=== PATIENT | male | born 1945 | race Caucasian/White ===

== ENCOUNTER 2022-07-05 13:58 | Inpatient (IN) | payer OTHER ==
[2022-07-05 15:22] LABS: BASO % 0.3 % (0-2.0); EOS % 1.2 % (0-4.5); HEMATOCRIT 26.1 % (35.4-49); HEMOGLOBIN 9.1 GM/dL (11.7-16.9); LYMPH % 6.5 % (8-40); MCH 27.9 pg (25.7-33.7); MCHC 34.9 g/dl (32.0-35.9); MEAN CELL VOLUME 79.9 fl (80-96); MEAN PLT VOLUME 6.4 fl (7.5-11.1); MONO % 10.4 % (3.8-10.2); NEUT % 81.6 % (42.8-82.8); PLATELET COUNT 360 10^3/uL (134-434); RBC 3.27 M/mm3 (4.00-5.60); RDW 15.9 % (11.9-15.9); WHITE BLOOD COUNT 10.1 K/mm3 (4.0-10.0)
[2022-07-05 15:27] LABS: INR 1.1 (0.83-1.09); PROTHROMBIN TIME (PATIENT) 12.7 SEC (9.7-13.0)
[2022-07-05 15:31] LABS: ACTIVATED PTT 26.6 SECONDS (25.2-36.5)
[2022-07-05 15:36] LABS: VENOUS BASE EXCESS -4.7 mmol/L (-2-2); VENOUS O2 SATURATION 71.4 % (70-80); VENOUS PH 7.409 (7.310-7.410)
[2022-07-05 15:43] LABS: EPI CELLS 2 /uL (0-25.1); HYALINE CASTS 0 /uL (0-3.1); URINE APPEARANCE CLEAR; URINE BACTERIA 7 /uL (0-1359); URINE BILIRUBIN NEGATIVE (NEGATIVE); URINE COLOR YELLOW; URINE GLUCOSE (UA) NEGATIVE (NEGATIVE); URINE KETONE NEGATIVE (NEGATIVE); URINE LEUK ESTERASE NEGATIVE (NEGATIVE); URINE NITRITE NEGATIVE (NEGATIVE); URINE PROTEIN 2+ (NEGATIVE); URINE RBC 23 /uL (0-23.9); URINE UROBILINOGEN 0.2 mg/dL (0.2-1.0); URINE WBC 2 /uL (0-25.8)
[2022-07-05 16:23] LABS: CHLORIDE 91 mmol/L (98-107); POTASSIUM 4.7 mmol/L (3.5-5.1)
[2022-07-05 16:26] LABS: ALBUMIN 2.9 g/dl (3.4-5.0); BLOOD UREA NITROGEN 35.7 mg/dL (7-18); CALCIUM 7.8 mg/dL (8.5-10.1); CO2 19 mmol/L (21-32); GLUCOSE,RANDOM 171 mg/dL (74-106)
[2022-07-05 16:29] LABS: CREATININE 1.7 mg/dL (0.55-1.3); SGOT/AST 45 U/L (15-37); SGPT/ALT 35 U/L (13-61)
[2022-07-05 16:30] LABS: BILIRUBIN,TOTAL 0.5 mg/dL (0.2-1)
[2022-07-05 16:31] LABS: TOT PROT 5.9 g/dl (6.4-8.2)
[2022-07-05 16:32] LABS: ALK PHOS 87 U/L (45-117)
[2022-07-05 16:34] LABS: ANION GAP 10 MMOL/L (8-16); SODIUM 119 mmol/L (136-145)
[2022-07-05] MEDS ORDERED: SODIUM CHLORIDE 1,000 ML IV SCH ×2 (17:15→18:30)
[2022-07-05] MEDS ORDERED: HALOPERIDOL LACTATE 5 MG/ML IM ONE ×2 (18:13→18:14)
[2022-07-05] MEDS ORDERED: MIDAZOLAM HCL 2 MG/2 ML SINGLE DOSE VIAL IVPUSH ONE (18:14)
[2022-07-05] MEDS ORDERED: ALBUTEROL SO4 0.083% IH SOL 2.5 MG/3 ML VIAL.NEB. NEB PRN (18:17)
[2022-07-05] MEDS ORDERED: MIDAZOLAM HCL 2 MG/2 ML SINGLE DOSE VIAL ONE (18:17)
[2022-07-05] MEDS: DEXMEDETOMIDINE PREMIX 400 MCG/100 ML BAG IVPB SCH ×2 (19:35→23:45)
[2022-07-05] MEDS: CHLORHEXIDINE GLUCONATE 4% CLEANSER FOR DECOLONIZATION TP SCH (21:45)
[2022-07-05] MEDS: HEPARIN NA (PORCINE) 5,000 UNITS/ML 1ML VIAL SQ SCH (21:45)
[2022-07-05] MEDS: MUPIROCIN 2% TOPICAL OINTMENT FOR DECOLONIZATION NS SCH (21:45)
[2022-07-05] MEDS: ATORVASTATIN CA 40 MG TABLET (FP) PO SCH (21:45)
[2022-07-05] MEDS: ENALAPRIL MALEATE 10 MG TABLET PO SCH (21:47)
[2022-07-05] MEDS: INSULIN SLIDING SCALE (NOVOLOG) 1 VIAL SQ SCH (21:59)
[2022-07-06 02:56] LABS: POTASSIUM 4.7 mmol/L (3.5-5.1)
[2022-07-06 02:58] LABS: BLOOD UREA NITROGEN 35.4 mg/dL (7-18); CALCIUM 7.8 mg/dL (8.5-10.1)
[2022-07-06 03:02] LABS: CREATININE 1.6 mg/dL (0.55-1.3)
[2022-07-06] MEDS: DEXMEDETOMIDINE PREMIX 400 MCG/100 ML BAG IVPB SCH ×3 (05:05→23:26)
[2022-07-06] MEDS: INSULIN SLIDING SCALE (NOVOLOG) 1 VIAL SQ SCH ×4 (06:39→22:03)
[2022-07-06 07:14] LABS: HEMATOCRIT 26.8 % (35.4-49); HEMOGLOBIN 9.5 GM/dL (11.7-16.9); MCH 28.5 pg (25.7-33.7); MCHC 35.6 g/dl (32.0-35.9); MEAN CELL VOLUME 80.1 fl (80-96); MEAN PLT VOLUME 6.7 fl (7.5-11.1); PLATELET COUNT 356 10^3/uL (134-434); RBC 3.35 M/mm3 (4.00-5.60); RDW 15.9 % (11.9-15.9)
[2022-07-06 07:31] LABS: POTASSIUM 4.9 mmol/L (3.5-5.1)
[2022-07-06 07:35] LABS: CALCIUM 7.5 mg/dL (8.5-10.1)
[2022-07-06 07:36] LABS: ALBUMIN 2.4 g/dl (3.4-5.0); BLOOD UREA NITROGEN 35.7 mg/dL (7-18)
[2022-07-06 07:39] LABS: CREATININE 1.5 mg/dL (0.55-1.3); PHOSPHOROUS 3.9 mg/dL (2.5-4.9)
[2022-07-06 07:40] LABS: BILIRUBIN,TOTAL 0.9 mg/dL (0.2-1); TOT PROT 5.3 g/dl (6.4-8.2)
[2022-07-06] MEDS: HEPARIN NA (PORCINE) 5,000 UNITS/ML 1ML VIAL SQ SCH ×2 (10:56→21:44)
[2022-07-06] MEDS: ENALAPRIL MALEATE 10 MG TABLET PO SCH ×2 (10:57→21:44)
[2022-07-06] MEDS: ASPIRIN COATED 81 MG TABLET.EC PO SCH (10:57)
[2022-07-06] MEDS: amLODIPine BESYLATE 10 MG TABLET (FP) PO SCH (10:57)
[2022-07-06] MEDS: MUPIROCIN 2% TOPICAL OINTMENT FOR DECOLONIZATION NS SCH ×2 (10:57→21:45)
[2022-07-06 11:24] LABS: POTASSIUM 4.8 mmol/L (3.5-5.1)
[2022-07-06 11:26] LABS: ALBUMIN 2.4 g/dl (3.4-5.0); CALCIUM 7.9 mg/dL (8.5-10.1)
[2022-07-06 11:27] LABS: BLOOD UREA NITROGEN 36.5 mg/dL (7-18); MAGNESIUM 2.4 mg/dL (1.8-2.4)
[2022-07-06 11:29] LABS: CREATININE 1.4 mg/dL (0.55-1.3)
[2022-07-06 11:31] LABS: BILIRUBIN,TOTAL 0.6 mg/dL (0.2-1); TOT PROT 5.3 g/dl (6.4-8.2)
[2022-07-06] MEDS ORDERED: SODIUM CHLORIDE 1,000 ML IV SCH ×2 (12:03→22:54)
[2022-07-06] MEDS: AMINO ACIDS/PROTEIN HYDROLYS 30 ML LIQUID.PKT PO SCH (16:33)
[2022-07-06 16:55] LABS: POTASSIUM 4.8 mmol/L (3.5-5.1)
[2022-07-06 16:57] LABS: BLOOD UREA NITROGEN 36.3 mg/dL (7-18); CALCIUM 7.9 mg/dL (8.5-10.1)
[2022-07-06 17:01] LABS: CREATININE 1.4 mg/dL (0.55-1.3)
[2022-07-06] MEDS: ATORVASTATIN CA 40 MG TABLET (FP) PO SCH (21:44)
[2022-07-06] MEDS: CHLORHEXIDINE GLUCONATE 4% CLEANSER FOR DECOLONIZATION TP SCH (21:45)
[2022-07-06 21:56] LABS: POTASSIUM 5.1 mmol/L (3.5-5.1)
[2022-07-06 21:58] LABS: CALCIUM 7.5 mg/dL (8.5-10.1)
[2022-07-06 21:59] LABS: ALBUMIN 2.2 g/dl (3.4-5.0); BLOOD UREA NITROGEN 39.1 mg/dL (7-18)
[2022-07-06 22:02] LABS: CREATININE 1.4 mg/dL (0.55-1.3)
[2022-07-06 22:04] LABS: BILIRUBIN,TOTAL 0.4 mg/dL (0.2-1); TOT PROT 5.2 g/dl (6.4-8.2)
[2022-07-07] MEDS: DEXMEDETOMIDINE PREMIX 400 MCG/100 ML BAG IVPB SCH (02:24)
[2022-07-07] MEDS: INSULIN SLIDING SCALE (NOVOLOG) 1 VIAL SQ SCH ×4 (06:16→23:07)
[2022-07-07 07:08] LABS: BASO % 0.4 % (0-2.0); EOS % 3.2 % (0-4.5); HEMATOCRIT 28.2 % (35.4-49); HEMOGLOBIN 9.6 GM/dL (11.7-16.9); LYMPH % 8.9 % (8-40); MCH 27.5 pg (25.7-33.7); MCHC 34.2 g/dl (32.0-35.9); MEAN CELL VOLUME 80.3 fl (80-96); MEAN PLT VOLUME 6.7 fl (7.5-11.1); MONO % 10.5 % (3.8-10.2); PLATELET COUNT 428 10^3/uL (134-434); RBC 3.51 M/mm3 (4.00-5.60); WHITE BLOOD COUNT 8.6 K/mm3 (4.0-10.0)
[2022-07-07 07:16] LABS: POTASSIUM 4.8 mmol/L (3.5-5.1)
[2022-07-07 07:19] LABS: CALCIUM 8.1 mg/dL (8.5-10.1)
[2022-07-07 07:20] LABS: ALBUMIN 2.3 g/dl (3.4-5.0); BLOOD UREA NITROGEN 35.1 mg/dL (7-18); MAGNESIUM 2.3 mg/dL (1.8-2.4)
[2022-07-07] MEDS ORDERED: SODIUM CHLORIDE 1,000 ML IV SCH ×2 (07:20→16:43)
[2022-07-07 07:23] LABS: CREATININE 1.3 mg/dL (0.55-1.3); PHOSPHOROUS 3.5 mg/dL (2.5-4.9)
[2022-07-07 07:24] LABS: BILIRUBIN,TOTAL 0.6 mg/dL (0.2-1); TOT PROT 5.2 g/dl (6.4-8.2)
[2022-07-07] MEDS ORDERED: ASCORBIC ACID 500 MG TABLET (FP) PO SCH (10:00)
[2022-07-07] MEDS: ENALAPRIL MALEATE 10 MG TABLET PO SCH ×2 (10:26→22:59)
[2022-07-07] MEDS: amLODIPine BESYLATE 10 MG TABLET (FP) PO SCH (10:26)
[2022-07-07] MEDS: HEPARIN NA (PORCINE) 5,000 UNITS/ML 1ML VIAL SQ SCH ×2 (10:26→22:59)
[2022-07-07] MEDS: MUPIROCIN 2% TOPICAL OINTMENT FOR DECOLONIZATION NS SCH (10:27)
[2022-07-07] MEDS: AMINO ACIDS/PROTEIN HYDROLYS 30 ML LIQUID.PKT PO SCH ×2 (10:27→18:30)
[2022-07-07] MEDS: ASPIRIN COATED 81 MG TABLET.EC PO SCH (10:27)
[2022-07-07] MEDS ORDERED: AZITHROMYCIN IVPB 500 MG/250 ML BAG IVPB ONE (11:15)
[2022-07-07] MEDS ORDERED: CEFTRIAXONE 1 GM in DEXTROSE 5%-WATER - 50 ML IVPB ONE (11:30)
[2022-07-07] MEDS ORDERED: INSULIN (NOVOLOG) ASPART 100 UNITS/ML 10ML VIAL ONE (11:48)
[2022-07-07] MEDS ORDERED: HALOPERIDOL LACTATE 5 MG/ML IM ONE ×2 (14:23→17:58)
[2022-07-07] MEDS ORDERED: ALBUTEROL SO4 0.083% IH SOL 2.5 MG/3 ML VIAL.NEB. NEB PRN (16:43)
[2022-07-07] MEDS ORDERED: MUPIROCIN 2% TOPICAL OINTMENT FOR DECOLONIZATION NS SCH (22:00)
[2022-07-07] MEDS ORDERED: CHLORHEXIDINE GLUCONATE 4% CLEANSER FOR DECOLONIZATION TP SCH (22:00)
[2022-07-07] MEDS: ATORVASTATIN CA 40 MG TABLET (FP) PO SCH (22:59)
[2022-07-07] MEDS: risperiDONE 0.25 MG TABLET PO SCH (23:30)
[2022-07-08] MEDS ORDERED: LORazepam 2 MG/ML SDV VIAL IVPUSH ONE (04:19)
[2022-07-08] MEDS: INSULIN SLIDING SCALE (NOVOLOG) 1 VIAL SQ SCH ×4 (06:47→22:08)
[2022-07-08] MEDS: HEPARIN NA (PORCINE) 5,000 UNITS/ML 1ML VIAL SQ SCH ×2 (09:48→22:08)
[2022-07-08] MEDS: amLODIPine BESYLATE 10 MG TABLET (FP) PO SCH (09:49)
[2022-07-08] MEDS: ENALAPRIL MALEATE 10 MG TABLET PO SCH ×2 (09:49→22:09)
[2022-07-08] MEDS: ASPIRIN COATED 81 MG TABLET.EC PO SCH (09:49)
[2022-07-08] MEDS: ASCORBIC ACID 500 MG TABLET (FP) PO SCH (09:50)
[2022-07-08] MEDS: AMINO ACIDS/PROTEIN HYDROLYS 30 ML LIQUID.PKT PO SCH ×2 (09:50→17:00)
[2022-07-08] MEDS: risperiDONE 0.25 MG TABLET PO SCH ×2 (09:50→22:09)
[2022-07-08] MEDS ORDERED: AZITHROMYCIN IVPB 500 MG/250 ML BAG IVPB SCH (10:00)
[2022-07-08] MEDS ORDERED: CEFTRIAXONE 1 GM in DEXTROSE 5%-WATER - 50 ML IVPB SCH (10:00)
[2022-07-08 11:44] LABS: HEMATOCRIT 28.2 % (35.4-49); HEMOGLOBIN 9.9 GM/dL (11.7-16.9); MCH 28.3 pg (25.7-33.7); MEAN CELL VOLUME 80.8 fl (80-96); PLATELET COUNT 579 10^3/uL (134-434); RBC 3.49 M/mm3 (4.00-5.60); RDW 16.2 % (11.9-15.9); WHITE BLOOD COUNT 10.3 K/mm3 (4.0-10.0)
[2022-07-08 12:06] LABS: POTASSIUM 4.5 mmol/L (3.5-5.1)
[2022-07-08] MEDS ORDERED: SODIUM CHLORIDE 0.45% 1,000 ML IV SCH (13:00)
[2022-07-08 15:10] LABS: METHADONE, UR NEGATIVE (NEGATIVE); OPIATES, URI NEGATIVE (NEGATIVE); PHENCYCLIDINE,URINE NEGATIVE (NEGATIVE); URINE AMPHETAMINES NEGATIVE (NEGATIVE)
[2022-07-08 15:11] LABS: URINE BARBITURATES NEGATIVE (NEGATIVE); URINE BENZODIAZEPINES NEGATIVE (NEGATIVE)
[2022-07-08 15:20] LABS: COCAINE, UR NEGATIVE (NEGATIVE)
[2022-07-08] MEDS: ATORVASTATIN CA 40 MG TABLET (FP) PO SCH (22:09)
[2022-07-09] MEDS: INSULIN SLIDING SCALE (NOVOLOG) 1 VIAL SQ SCH ×3 (07:16→17:37)
[2022-07-09] MEDS: HEPARIN NA (PORCINE) 5,000 UNITS/ML 1ML VIAL SQ SCH ×3 (07:41→22:26)
[2022-07-09 07:59] LABS: HEMATOCRIT 28.6 % (35.4-49); MCH 28.5 pg (25.7-33.7); MEAN CELL VOLUME 81.4 fl (80-96); MEAN PLT VOLUME 7.1 fl (7.5-11.1); PLATELET COUNT 630 10^3/uL (134-434); RBC 3.51 M/mm3 (4.00-5.60); RDW 16.5 % (11.9-15.9)
[2022-07-09 08:58] LABS: CALCIUM 8.3 mg/dL (8.5-10.1)
[2022-07-09 08:59] LABS: ALBUMIN 2.5 g/dl (3.4-5.0); BLOOD UREA NITROGEN 28.9 mg/dL (7-18); MAGNESIUM 2.2 mg/dL (1.8-2.4)
[2022-07-09 09:02] LABS: CREATININE 1.1 mg/dL (0.55-1.3); PHOSPHOROUS 4.1 mg/dL (2.5-4.9)
[2022-07-09 09:04] LABS: BILIRUBIN,TOTAL 0.5 mg/dL (0.2-1)
[2022-07-09] MEDS: amLODIPine BESYLATE 10 MG TABLET (FP) PO SCH (10:30)
[2022-07-09] MEDS: ENALAPRIL MALEATE 10 MG TABLET PO SCH ×2 (10:30→22:27)
[2022-07-09] MEDS: ASPIRIN COATED 81 MG TABLET.EC PO SCH (10:30)
[2022-07-09] MEDS: AMINO ACIDS/PROTEIN HYDROLYS 30 ML LIQUID.PKT PO SCH ×2 (10:30→17:38)
[2022-07-09] MEDS: risperiDONE 0.25 MG TABLET PO SCH ×2 (10:31→22:27)
[2022-07-09] MEDS: ASCORBIC ACID 500 MG TABLET (FP) PO SCH (10:31)
[2022-07-09] MEDS: PANTOPRAZOLE 40 MG TABLET PO SCH (10:36)
[2022-07-09] MEDS: AZITHROMYCIN 250 MG TABLET PO SCH (10:36)
[2022-07-09] MEDS: CEFTRIAXONE 1 GM in DEXTROSE 5%-WATER - 50 ML IVPB SCH (10:36)
[2022-07-09] MEDS ORDERED: INSULIN (NOVOLOG) ASPART 100 UNITS/ML 10ML VIAL ONE ×3 (11:49→22:06)
[2022-07-09] MEDS ORDERED: SODIUM CHLORIDE 0.45% 1,000 ML IV SCH (11:52)
[2022-07-09] MEDS ORDERED: LORazepam 2 MG/ML SDV VIAL IVPUSH ONE (13:26)
[2022-07-09] MEDS: AMINO ACIDS 4.25%/D5W 1,000 ML IV SCH (17:37)
[2022-07-09] MEDS: ATORVASTATIN CA 40 MG TABLET (FP) PO SCH (22:27)
[2022-07-10] MEDS: HEPARIN NA (PORCINE) 5,000 UNITS/ML 1ML VIAL SQ SCH ×3 (06:43→21:24)
[2022-07-10] MEDS: INSULIN SLIDING SCALE (NOVOLOG) 1 VIAL SQ SCH ×3 (06:43→17:22)
[2022-07-10 08:20] LABS: HEMATOCRIT 28.7 % (35.4-49); HEMOGLOBIN 9.8 GM/dL (11.7-16.9); MCH 27.8 pg (25.7-33.7); MCHC 34.2 g/dl (32.0-35.9); MEAN CELL VOLUME 81.3 fl (80-96); MEAN PLT VOLUME 7.1 fl (7.5-11.1); PLATELET COUNT 724 10^3/uL (134-434); RBC 3.53 M/mm3 (4.00-5.60); RDW 16.7 % (11.9-15.9)
[2022-07-10 08:38] LABS: POTASSIUM 4.7 mmol/L (3.5-5.1)
[2022-07-10 08:39] LABS: CALCIUM 8.4 mg/dL (8.5-10.1)
[2022-07-10 08:41] LABS: ALBUMIN 2.4 g/dl (3.4-5.0); BLOOD UREA NITROGEN 31.8 mg/dL (7-18)
[2022-07-10 08:44] LABS: CREATININE 1.1 mg/dL (0.55-1.3); PHOSPHOROUS 3.6 mg/dL (2.5-4.9)
[2022-07-10 08:45] LABS: BILIRUBIN,TOTAL 0.6 mg/dL (0.2-1); TOT PROT 5.8 g/dl (6.4-8.2)
[2022-07-10] MEDS: AMINO ACIDS/PROTEIN HYDROLYS 30 ML LIQUID.PKT PO SCH (09:16)
[2022-07-10] MEDS: CEFTRIAXONE 1 GM in DEXTROSE 5%-WATER - 50 ML IVPB SCH (09:49)
[2022-07-10] MEDS: ASPIRIN COATED 81 MG TABLET.EC PO SCH (09:50)
[2022-07-10] MEDS: PANTOPRAZOLE 40 MG TABLET PO SCH (09:50)
[2022-07-10] MEDS: ENALAPRIL MALEATE 10 MG TABLET PO SCH ×2 (09:50→21:24)
[2022-07-10] MEDS: amLODIPine BESYLATE 10 MG TABLET (FP) PO SCH (09:50)
[2022-07-10] MEDS: ASCORBIC ACID 500 MG TABLET (FP) PO SCH (09:50)
[2022-07-10] MEDS: AZITHROMYCIN 250 MG TABLET PO SCH (09:50)
[2022-07-10] MEDS: risperiDONE 0.25 MG TABLET PO SCH ×2 (09:58→21:25)
[2022-07-10] MEDS ORDERED: INSULIN (NOVOLOG) ASPART 100 UNITS/ML 10ML VIAL ONE ×3 (12:14→17:18)
[2022-07-10] MEDS: PIPERACILLIN/TAZOB 3.375 GM 3.375 GM in DEXTROSE 5%-WATER - 50 ML IVPB SCH ×2 (12:54→17:01)
[2022-07-10] MEDS: AMINO ACIDS 4.25%/D5W 1,000 ML IV SCH (17:22)
[2022-07-10] MEDS ORDERED: LORazepam 2 MG/ML SDV VIAL IVPUSH ONE (17:53)
[2022-07-10 21:23] LABS: BF GLUCOSE (CSF ONLY) 114 mg/dL (40-70)
[2022-07-10] MEDS: ATORVASTATIN CA 40 MG TABLET (FP) PO SCH (21:24)
[2022-07-10 21:54] LABS: CSF APPEARANCE CLEAR (CLEAR); CSF COLOR COLORLESS (COLORLESS)
[2022-07-10 21:55] LABS: CSF WBC 1 mm3 (0-5)
[2022-07-11] MEDS: PIPERACILLIN/TAZOB 3.375 GM 3.375 GM in DEXTROSE 5%-WATER - 50 ML IVPB SCH ×3 (02:39→17:00)
[2022-07-11] MEDS ORDERED: INSULIN (NOVOLOG) ASPART 100 UNITS/ML 10ML VIAL ONE ×2 (07:05→16:55)
[2022-07-11] MEDS: INSULIN SLIDING SCALE (NOVOLOG) 1 VIAL SQ SCH ×3 (07:07→16:57)
[2022-07-11] MEDS: HEPARIN NA (PORCINE) 5,000 UNITS/ML 1ML VIAL SQ SCH ×3 (07:08→22:34)
[2022-07-11 07:39] LABS: HEMATOCRIT 29.3 % (35.4-49); HEMOGLOBIN 9.8 GM/dL (11.7-16.9); MCH 27.3 pg (25.7-33.7); MCHC 33.6 g/dl (32.0-35.9); MEAN CELL VOLUME 81.4 fl (80-96); MEAN PLT VOLUME 6.5 fl (7.5-11.1); PLATELET COUNT 706 10^3/uL (134-434); RBC 3.59 M/mm3 (4.00-5.60); RDW 16.6 % (11.9-15.9); WHITE BLOOD COUNT 14.2 K/mm3 (4.0-10.0)
[2022-07-11 07:57] LABS: POTASSIUM 4.3 mmol/L (3.5-5.1)
[2022-07-11 08:08] LABS: ALBUMIN 2.2 g/dl (3.4-5.0); BLOOD UREA NITROGEN 35.2 mg/dL (7-18); CALCIUM 8.6 mg/dL (8.5-10.1)
[2022-07-11 08:12] LABS: CREATININE 1.2 mg/dL (0.55-1.3); PHOSPHOROUS 3.3 mg/dL (2.5-4.9)
[2022-07-11 08:14] LABS: BILIRUBIN,TOTAL 0.7 mg/dL (0.2-1); TOT PROT 5.8 g/dl (6.4-8.2)
[2022-07-11] MEDS: risperiDONE 0.25 MG TABLET PO SCH ×2 (10:03→22:34)
[2022-07-11] MEDS: PANTOPRAZOLE 40 MG TABLET PO SCH (10:21)
[2022-07-11] MEDS: amLODIPine BESYLATE 10 MG TABLET (FP) PO SCH (10:21)
[2022-07-11] MEDS: ENALAPRIL MALEATE 10 MG TABLET PO SCH ×2 (10:21→22:34)
[2022-07-11] MEDS: ASPIRIN COATED 81 MG TABLET.EC PO SCH (10:21)
[2022-07-11] MEDS: ASCORBIC ACID 500 MG TABLET (FP) PO SCH (10:21)
[2022-07-11 13:28] LABS: EPI CELLS >36 /uL (0-25.1); HYALINE CASTS 1 /uL (0-3.1); PH,URINE 5.5 (5.0-8.0); URINE APPEARANCE CLEAR; URINE BACTERIA 9 /uL (0-1359); URINE BILIRUBIN NEGATIVE (NEGATIVE); URINE COLOR YELLOW; URINE GLUCOSE (UA) NEGATIVE (NEGATIVE); URINE KETONE NEGATIVE (NEGATIVE); URINE LEUK ESTERASE NEGATIVE (NEGATIVE); URINE NITRITE NEGATIVE (NEGATIVE); URINE PROTEIN 3+ (NEGATIVE); URINE UROBILINOGEN 0.2 mg/dL (0.2-1.0); URINE WBC 15 /uL (0-25.8)
[2022-07-11 14:39] LABS: URINE RBC 32.6 /uL (0-23.9)
[2022-07-11] MEDS: AMINO ACIDS 4.25%/D5W 1,000 ML IV SCH (16:57)
[2022-07-11 17:22] LABS: HIV INTERPRETATION NEGATIVE (NEGATIVE)
[2022-07-11] MEDS: ATORVASTATIN CA 40 MG TABLET (FP) PO SCH (22:34)
[2022-07-12] MEDS: PIPERACILLIN/TAZOB 3.375 GM 3.375 GM in DEXTROSE 5%-WATER - 50 ML IVPB SCH ×3 (02:52→17:41)
[2022-07-12] MEDS: HEPARIN NA (PORCINE) 5,000 UNITS/ML 1ML VIAL SQ SCH ×3 (05:38→21:37)
[2022-07-12] MEDS: INSULIN SLIDING SCALE (NOVOLOG) 1 VIAL SQ SCH ×3 (06:13→17:33)
[2022-07-12 08:06] LABS: HEMATOCRIT 30.3 % (35.4-49); HEMOGLOBIN 10.2 GM/dL (11.7-16.9); MCH 27.4 pg (25.7-33.7); MCHC 33.8 g/dl (32.0-35.9); MEAN PLT VOLUME 7.2 fl (7.5-11.1); PLATELET COUNT 704 10^3/uL (134-434); RBC 3.74 M/mm3 (4.00-5.60); RDW 16.6 % (11.9-15.9); WHITE BLOOD COUNT 14.1 K/mm3 (4.0-10.0)
[2022-07-12 08:13] LABS: POTASSIUM 4.2 mmol/L (3.5-5.1)
[2022-07-12 08:21] LABS: CALCIUM 8.7 mg/dL (8.5-10.1)
[2022-07-12 08:22] LABS: ALBUMIN 2.1 g/dl (3.4-5.0); BLOOD UREA NITROGEN 37.6 mg/dL (7-18); MAGNESIUM 2.1 mg/dL (1.8-2.4)
[2022-07-12 08:26] LABS: CREATININE 1.2 mg/dL (0.55-1.3); PHOSPHOROUS 3.8 mg/dL (2.5-4.9); TOT PROT 5.9 g/dl (6.4-8.2)
[2022-07-12 08:28] LABS: BILIRUBIN,TOTAL 0.9 mg/dL (0.2-1)
[2022-07-12] MEDS: ASCORBIC ACID 500 MG TABLET (FP) PO SCH (09:53)
[2022-07-12] MEDS: risperiDONE 0.25 MG TABLET PO SCH ×2 (09:53→23:12)
[2022-07-12] MEDS: ENALAPRIL MALEATE 10 MG TABLET PO SCH ×2 (09:53→21:38)
[2022-07-12] MEDS: PANTOPRAZOLE 40 MG TABLET PO SCH (09:53)
[2022-07-12] MEDS: amLODIPine BESYLATE 10 MG TABLET (FP) PO SCH (09:53)
[2022-07-12] MEDS: ASPIRIN COATED 81 MG TABLET.EC PO SCH (09:53)
[2022-07-12 12:02] VITALS: BMI 24.7
[2022-07-12] MEDS: SODIUM CHLORIDE 0.45% 1,000 ML IV SCH (17:33)
[2022-07-12] MEDS: AMINO ACIDS 4.25%/D5W 1,000 ML IV SCH (17:36)
[2022-07-12] MEDS: ATORVASTATIN CA 40 MG TABLET (FP) PO SCH (21:38)
[2022-07-13] MEDS: PIPERACILLIN/TAZOB 3.375 GM 3.375 GM in DEXTROSE 5%-WATER - 50 ML IVPB SCH ×3 (03:28→17:09)
[2022-07-13] MEDS: HEPARIN NA (PORCINE) 5,000 UNITS/ML 1ML VIAL SQ SCH ×3 (05:53→21:39)
[2022-07-13] MEDS: INSULIN SLIDING SCALE (NOVOLOG) 1 VIAL SQ SCH ×3 (06:32→17:08)
[2022-07-13 09:21] LABS: HEMATOCRIT 29.7 % (35.4-49); HEMOGLOBIN 10.2 GM/dL (11.7-16.9); MCH 27.8 pg (25.7-33.7); MCHC 34.3 g/dl (32.0-35.9); MEAN CELL VOLUME 81.1 fl (80-96); MEAN PLT VOLUME 7.6 fl (7.5-11.1); PLATELET COUNT 733 10^3/uL (134-434); RBC 3.67 M/mm3 (4.00-5.60); WHITE BLOOD COUNT 16.2 K/mm3 (4.0-10.0)
[2022-07-13 09:43] LABS: POTASSIUM 4.3 mmol/L (3.5-5.1)
[2022-07-13] MEDS: ASCORBIC ACID 500 MG TABLET (FP) PO SCH (10:07)
[2022-07-13] MEDS: PANTOPRAZOLE 40 MG TABLET PO SCH (10:07)
[2022-07-13] MEDS: amLODIPine BESYLATE 10 MG TABLET (FP) PO SCH (10:07)
[2022-07-13] MEDS: risperiDONE 0.25 MG TABLET PO SCH ×2 (10:07→21:39)
[2022-07-13] MEDS: ENALAPRIL MALEATE 10 MG TABLET PO SCH ×2 (10:07→21:39)
[2022-07-13] MEDS: ASPIRIN COATED 81 MG TABLET.EC PO SCH (10:07)
[2022-07-13 10:11] LABS: BLOOD UREA NITROGEN 49.5 mg/dL (7-18); CALCIUM 8.6 mg/dL (8.5-10.1); MAGNESIUM 2.1 mg/dL (1.8-2.4)
[2022-07-13 10:14] LABS: CREATININE 1.3 mg/dL (0.55-1.3); PHOSPHOROUS 4.2 mg/dL (2.5-4.9)
[2022-07-13 10:16] LABS: BILIRUBIN,TOTAL 0.9 mg/dL (0.2-1)
[2022-07-13 10:19] LABS: TOT PROT 5.7 g/dl (6.4-8.2)
[2022-07-13] MEDS: SODIUM CHLORIDE 0.45% 1,000 ML IV SCH (17:07)
[2022-07-13] MEDS: AMINO ACIDS 4.25%/D5W 1,000 ML IV SCH (17:08)
[2022-07-13] MEDS ORDERED: VANCOMYCIN 500 MG in DEXTROSE 5%-WATER - 100 ML IVPB ONE (17:54)
[2022-07-13] MEDS: MEROPENEM 1 GM in DEXTROSE 5%-WATER 100 ML IVPB SCH (18:08)
[2022-07-13] MEDS: ALBUTEROL SO4 2.5/IPRATROPIUM 0.5 INH SOL 3 ML VIAL.NEB. NEB SCH (20:21)
[2022-07-13] MEDS: ATORVASTATIN CA 40 MG TABLET (FP) PO SCH (21:39)
[2022-07-13] MEDS: FUROSEMIDE 40 MG/4 ML INJECTABLE VIAL IVPUSH SCH (21:39)
[2022-07-13 21:46] LABS: ARTERIAL BLD GAS O2 SATURATION 92.9 % (95-98); ARTERIAL BLOOD GAS BASE EXCESS -6.7 mmol/L (-2-2); ARTERIAL BLOOD GAS PO2 65.9 mmHg (80-100); ARTERIAL BLOOD GAS pH 7.375 (7.350-7.450)
[2022-07-13 21:47] LABS: ALLENS TEST POSITIVE
[2022-07-14] MEDS: HEPARIN NA (PORCINE) 5,000 UNITS/ML 1ML VIAL SQ SCH ×3 (06:57→22:29)
[2022-07-14] MEDS: FUROSEMIDE 40 MG/4 ML INJECTABLE VIAL IVPUSH SCH ×2 (06:57→14:21)
[2022-07-14] MEDS: MEROPENEM 1 GM in DEXTROSE 5%-WATER 100 ML IVPB SCH ×2 (06:58→18:00)
[2022-07-14] MEDS ORDERED: INSULIN (NOVOLOG) ASPART 100 UNITS/ML 10ML VIAL ONE ×2 (07:22→12:24)
[2022-07-14] MEDS: INSULIN SLIDING SCALE (NOVOLOG) 1 VIAL SQ SCH ×3 (07:25→18:01)
[2022-07-14 08:30] LABS: HEMATOCRIT 30.6 % (35.4-49); HEMOGLOBIN 10.1 GM/dL (11.7-16.9); MCHC 33.1 g/dl (32.0-35.9); MEAN CELL VOLUME 81.4 fl (80-96); MEAN PLT VOLUME 7.8 fl (7.5-11.1); PLATELET COUNT 779 10^3/uL (134-434); RBC 3.76 M/mm3 (4.00-5.60); RDW 17.4 % (11.9-15.9); WHITE BLOOD COUNT 19.6 K/mm3 (4.0-10.0)
[2022-07-14] MEDS ORDERED: ACETAMINOPHEN 1000 MG/100 ML BAG IVPB PRN ×2 (08:36→19:03)
[2022-07-14] MEDS: ALBUTEROL SO4 2.5/IPRATROPIUM 0.5 INH SOL 3 ML VIAL.NEB. NEB SCH ×4 (08:52→20:35)
[2022-07-14 09:15] LABS: POTASSIUM 4.1 mmol/L (3.5-5.1)
[2022-07-14 09:20] LABS: CALCIUM 8.5 mg/dL (8.5-10.1)
[2022-07-14 09:21] LABS: MAGNESIUM 1.9 mg/dL (1.8-2.4)
[2022-07-14 09:24] LABS: CREATININE 1.4 mg/dL (0.55-1.3); PHOSPHOROUS 4.4 mg/dL (2.5-4.9)
[2022-07-14 09:25] LABS: BILIRUBIN,TOTAL 0.7 mg/dL (0.2-1); TOT PROT 5.7 g/dl (6.4-8.2)
[2022-07-14 10:33] LABS: N-TERMINAL BNP 3430.3 pg/ml (5-450)
[2022-07-14] MEDS: ASPIRIN COATED 81 MG TABLET.EC PO SCH (10:54)
[2022-07-14] MEDS: amLODIPine BESYLATE 10 MG TABLET (FP) PO SCH (10:54)
[2022-07-14] MEDS: ENALAPRIL MALEATE 10 MG TABLET PO SCH ×2 (10:54→22:29)
[2022-07-14] MEDS: ASCORBIC ACID 500 MG TABLET (FP) PO SCH (10:54)
[2022-07-14] MEDS: PANTOPRAZOLE 40 MG TABLET PO SCH (10:55)
[2022-07-14] MEDS: risperiDONE 0.25 MG TABLET PO SCH ×2 (10:55→22:29)
[2022-07-14] MEDS ORDERED: methylPREDNISolone NA SUCC 40 MG/1 ML VIAL IVPUSH ONE (10:59)
[2022-07-14] MEDS ORDERED: FUROSEMIDE 40 MG/4 ML INJECTABLE VIAL IVPUSH ONE (11:07)
[2022-07-14 12:16] LABS: ERYTHROCYTE SEDIMENTATION RATE 86 mm/hr (0-20)
[2022-07-14 14:17] LABS: N-TERMINAL BNP 3463.9 pg/ml (5-450)
[2022-07-14] MEDS: AMINO ACIDS 4.25%/D5W 1,000 ML IV SCH (17:59)
[2022-07-14] MEDS ORDERED: CHLORHEXIDINE GLUCONATE 4% CLEANSER FOR DECOLONIZATION TP SCH ×2 (22:00)
[2022-07-14] MEDS ORDERED: MUPIROCIN 2% TOPICAL OINTMENT FOR DECOLONIZATION NS SCH ×2 (22:00)
[2022-07-14] MEDS: ATORVASTATIN CA 40 MG TABLET (FP) PO SCH (22:29)
[2022-07-14] MEDS: MUPIROCIN 2% TOPICAL OINTMENT FOR DECOLONIZATION NS SCH (22:30)
[2022-07-14] MEDS: CHLORHEXIDINE GLUCONATE 4% CLEANSER FOR DECOLONIZATION TP SCH (22:30)
[2022-07-14 23:50] LABS: VENOUS BASE EXCESS -4.9 mmol/L (-2-2); VENOUS O2 SATURATION 58.9 % (70-80); VENOUS PH 7.392 (7.310-7.410)
[2022-07-15] MEDS: HEPARIN NA (PORCINE) 5,000 UNITS/ML 1ML VIAL SQ SCH ×3 (06:25→21:40)
[2022-07-15] MEDS: MEROPENEM 1 GM in DEXTROSE 5%-WATER 100 ML IVPB SCH ×2 (06:26→17:48)
[2022-07-15] MEDS: FUROSEMIDE 40 MG/4 ML INJECTABLE VIAL IVPUSH SCH ×2 (06:26→14:46)
[2022-07-15] MEDS: INSULIN SLIDING SCALE (NOVOLOG) 1 VIAL SQ SCH ×3 (06:40→17:29)
[2022-07-15 07:23] LABS: HEMATOCRIT 29.6 % (35.4-49); HEMOGLOBIN 9.9 GM/dL (11.7-16.9); MCH 27.3 pg (25.7-33.7); MCHC 33.4 g/dl (32.0-35.9); MEAN CELL VOLUME 81.5 fl (80-96); MEAN PLT VOLUME 8.4 fl (7.5-11.1); PLATELET COUNT 729 10^3/uL (134-434); RBC 3.64 M/mm3 (4.00-5.60); RDW 17.4 % (11.9-15.9); WHITE BLOOD COUNT 20.1 K/mm3 (4.0-10.0)
[2022-07-15 07:41] LABS: CHLORIDE 120 mmol/L (98-107); POTASSIUM 3.6 mmol/L (3.5-5.1); SODIUM 149 mmol/L (136-145)
[2022-07-15 07:44] LABS: ALBUMIN 1.9 g/dl (3.4-5.0); ANION GAP 9 MMOL/L (8-16); BLOOD UREA NITROGEN 73.8 mg/dL (7-18); CALCIUM 8.8 mg/dL (8.5-10.1); CO2 20 mmol/L (21-32); MAGNESIUM 2.1 mg/dL (1.8-2.4)
[2022-07-15 07:47] LABS: CREATININE 1.7 mg/dL (0.55-1.3); PHOSPHOROUS 3.8 mg/dL (2.5-4.9); SGOT/AST 31 U/L (15-37); SGPT/ALT 42 U/L (13-61)
[2022-07-15 07:49] LABS: BILIRUBIN,TOTAL 0.6 mg/dL (0.2-1); TOT PROT 5.7 g/dl (6.4-8.2)
[2022-07-15 07:50] LABS: ALK PHOS 100 U/L (45-117)
[2022-07-15 07:53] LABS: INR 1.54 (0.83-1.09); PROTHROMBIN TIME (PATIENT) 17.8 SEC (9.7-13.0)
[2022-07-15 08:00] LABS: GLUCOSE,RANDOM 409 mg/dL (74-106)
[2022-07-15] MEDS: ALBUTEROL SO4 2.5/IPRATROPIUM 0.5 INH SOL 3 ML VIAL.NEB. NEB SCH ×4 (08:21→21:00)
[2022-07-15] MEDS ORDERED: amLODIPine BESYLATE 5 MG TABLET (FP) PO SCH (10:00)
[2022-07-15 10:01] LABS: ANISOCYTOSIS 0; HELMET CELLS 0; HOWELL-JOLLY BODIES 0; MACROCYTOSIS 0; OVALOCYTE 0; ROULEAU 0; SICKELED CELLS 0; TARGET CELLS 0; TEAR DROP CELLS 0; TOXIC GRANULATION 0
[2022-07-15] MEDS: PANTOPRAZOLE 40 MG TABLET PO SCH (10:44)
[2022-07-15] MEDS: amLODIPine BESYLATE 5 MG TABLET (FP) PO SCH (10:44)
[2022-07-15] MEDS: ASCORBIC ACID 500 MG TABLET (FP) PO SCH (10:44)
[2022-07-15] MEDS: risperiDONE 0.25 MG TABLET PO SCH ×2 (10:44→21:42)
[2022-07-15] MEDS: ASPIRIN COATED 81 MG TABLET.EC PO SCH (10:44)
[2022-07-15] MEDS: ENALAPRIL MALEATE 10 MG TABLET PO SCH ×2 (10:45→21:42)
[2022-07-15] MEDS: MUPIROCIN 2% TOPICAL OINTMENT FOR DECOLONIZATION NS SCH ×2 (10:45→21:44)
[2022-07-15] MEDS: AMINO ACIDS 4.25%/D5W 1,000 ML IV SCH ×2 (11:00→22:08)
[2022-07-15] MEDS ORDERED: INSULIN (LEVEMIR) 100 UNITS/ML UNITS SQ ONE (11:50)
[2022-07-15] MEDS: INSULIN (LEVEMIR) 100 UNITS/ML UNITS SQ SCH ×2 (11:54→21:44)
[2022-07-15] MEDS: methylPREDNISolone NA SUCC 40 MG/1 ML VIAL IVPUSH SCH ×2 (14:47→17:48)
[2022-07-15] MEDS ORDERED: AMINO ACIDS 4.25%/D5W 1,000 ML IV SCH (17:00)
[2022-07-15] MEDS: CHLORHEXIDINE GLUCONATE 4% CLEANSER FOR DECOLONIZATION TP SCH (21:41)
[2022-07-15] MEDS: ATORVASTATIN CA 40 MG TABLET (FP) PO SCH (21:42)
[2022-07-16] MEDS: methylPREDNISolone NA SUCC 40 MG/1 ML VIAL IVPUSH SCH ×3 (01:12→17:14)
[2022-07-16] MEDS: AMINO ACIDS 4.25%/D5W 1,000 ML IV SCH ×3 (03:01→13:15)
[2022-07-16] MEDS: MEROPENEM 1 GM in DEXTROSE 5%-WATER 100 ML IVPB SCH ×2 (05:36→17:14)
[2022-07-16] MEDS: FUROSEMIDE 40 MG/4 ML INJECTABLE VIAL IVPUSH SCH (05:36)
[2022-07-16] MEDS: HEPARIN NA (PORCINE) 5,000 UNITS/ML 1ML VIAL SQ SCH ×3 (05:36→21:29)
[2022-07-16] MEDS: INSULIN (LEVEMIR) 100 UNITS/ML UNITS SQ SCH ×2 (06:27→21:28)
[2022-07-16] MEDS: INSULIN SLIDING SCALE (NOVOLOG) 1 VIAL SQ SCH ×3 (06:28→18:25)
[2022-07-16 07:30] LABS: HEMATOCRIT 30.5 % (35.4-49); HEMOGLOBIN 10.1 GM/dL (11.7-16.9); MCH 27.1 pg (25.7-33.7); MCHC 32.9 g/dl (32.0-35.9); MEAN CELL VOLUME 82.2 fl (80-96); MEAN PLT VOLUME 8.8 fl (7.5-11.1); PLATELET COUNT 712 10^3/uL (134-434); RBC 3.71 M/mm3 (4.00-5.60); RDW 17.9 % (11.9-15.9); WHITE BLOOD COUNT 20.4 K/mm3 (4.0-10.0)
[2022-07-16 07:45] LABS: CHLORIDE 119 mmol/L (98-107); POTASSIUM 3.2 mmol/L (3.5-5.1); SODIUM 149 mmol/L (136-145)
[2022-07-16 07:55] LABS: ANION GAP 11 MMOL/L (8-16); CO2 19 mmol/L (21-32); MAGNESIUM 2.2 mg/dL (1.8-2.4)
[2022-07-16 07:58] LABS: SGOT/AST 35 U/L (15-37); SGPT/ALT 46 U/L (13-61)
[2022-07-16 08:00] LABS: BILIRUBIN,TOTAL 0.5 mg/dL (0.2-1); TOT PROT 5.8 g/dl (6.4-8.2)
[2022-07-16 08:01] LABS: ALK PHOS 101 U/L (45-117)
[2022-07-16] MEDS: ALBUTEROL SO4 2.5/IPRATROPIUM 0.5 INH SOL 3 ML VIAL.NEB. NEB SCH ×4 (08:24→20:15)
[2022-07-16 08:30] LABS: GLUCOSE,RANDOM 575 mg/dL (74-106)
[2022-07-16 09:10] LABS: ANISOCYTOSIS 0; HELMET CELLS 0; HOWELL-JOLLY BODIES 0; MACROCYTOSIS 0; OVALOCYTE 0; ROULEAU 0; SICKELED CELLS 0; TARGET CELLS 0; TEAR DROP CELLS 0; TOXIC GRANULATION 0
[2022-07-16] MEDS ORDERED: INSULIN REGULAR HUMAN 100 UNITS/ML *VIAL IVPUSH ONE (10:34)
[2022-07-16] MEDS: ASPIRIN COATED 81 MG TABLET.EC PO SCH (10:41)
[2022-07-16] MEDS: risperiDONE 0.25 MG TABLET PO SCH ×2 (10:41→21:26)
[2022-07-16] MEDS: PANTOPRAZOLE 40 MG TABLET PO SCH (10:41)
[2022-07-16] MEDS: amLODIPine BESYLATE 5 MG TABLET (FP) PO SCH (10:41)
[2022-07-16] MEDS: MUPIROCIN 2% TOPICAL OINTMENT FOR DECOLONIZATION NS SCH ×2 (10:42→21:29)
[2022-07-16] MEDS: ENALAPRIL MALEATE 10 MG TABLET PO SCH ×2 (10:42→21:29)
[2022-07-16] MEDS: ASCORBIC ACID 500 MG TABLET (FP) PO SCH (10:43)
[2022-07-16] MEDS ORDERED: INSULIN (NOVOLOG) ASPART 100 UNITS/ML 10ML VIAL SQ ONE (11:01)
[2022-07-16] MEDS: DEXMEDETOMIDINE PREMIX 400 MCG/100 ML BAG IVPB SCH (11:16)
[2022-07-16] MEDS: KCL 10 MEQ IVPB 10 MEQ/100 ML INFUS.BAG IVPB SCH ×2 (11:17→13:14)
[2022-07-16 21:08] LABS: ANTIGLOMERULAR BASEMENT MEN.AB <0.2 units (0.0-0.9)
[2022-07-16] MEDS: ATORVASTATIN CA 40 MG TABLET (FP) PO SCH (21:26)
[2022-07-16] MEDS: FAT EMUL/SOY/MCT/OLIV/FISH OIL 250 ML IV SCH (21:29)
[2022-07-16] MEDS: CHLORHEXIDINE GLUCONATE 4% CLEANSER FOR DECOLONIZATION TP SCH (21:29)
[2022-07-16] MEDS ORDERED: SMOFLIPID - FAT EMUL/SOY/MCT/OLIV/FISH OIL 250 ML EMULSION IV SCH (22:00)
[2022-07-17] MEDS: AMINO ACIDS 4.25%/D5W 1,000 ML IV SCH ×2 (03:23→10:59)
[2022-07-17] MEDS: methylPREDNISolone NA SUCC 40 MG/1 ML VIAL IVPUSH SCH ×2 (03:24→10:43)
[2022-07-17] MEDS: MEROPENEM 1 GM in DEXTROSE 5%-WATER 100 ML IVPB SCH (06:19)
[2022-07-17] MEDS: HEPARIN NA (PORCINE) 5,000 UNITS/ML 1ML VIAL SQ SCH ×3 (06:19→21:51)
[2022-07-17] MEDS: INSULIN (LEVEMIR) 100 UNITS/ML UNITS SQ SCH ×2 (06:26→21:58)
[2022-07-17] MEDS: INSULIN SLIDING SCALE (NOVOLOG) 1 VIAL SQ SCH ×3 (06:27→17:24)
[2022-07-17] MEDS: ALBUTEROL SO4 2.5/IPRATROPIUM 0.5 INH SOL 3 ML VIAL.NEB. NEB SCH ×4 (07:20→20:18)
[2022-07-17 09:50] LABS: HEMATOCRIT 27.5 % (35.4-49); HEMOGLOBIN 9.1 GM/dL (11.7-16.9); MCH 27.4 pg (25.7-33.7); MEAN CELL VOLUME 83.2 fl (80-96); MEAN PLT VOLUME 9.3 fl (7.5-11.1); PLATELET COUNT 550 10^3/uL (134-434); RDW 17.5 % (11.9-15.9); WHITE BLOOD COUNT 20.1 K/mm3 (4.0-10.0)
[2022-07-17 09:54] LABS: CHLORIDE 117 mmol/L (98-107); POTASSIUM 3.6 mmol/L (3.5-5.1); SODIUM 145 mmol/L (136-145)
[2022-07-17 09:57] LABS: ALBUMIN 1.8 g/dl (3.4-5.0); ANION GAP 11 MMOL/L (8-16); CALCIUM 8.4 mg/dL (8.5-10.1); CO2 17 mmol/L (21-32); MAGNESIUM 2.2 mg/dL (1.8-2.4)
[2022-07-17 10:00] LABS: CREATININE 2.6 mg/dL (0.55-1.3); PHOSPHOROUS 4.5 mg/dL (2.5-4.9); SGOT/AST 24 U/L (15-37); SGPT/ALT 40 U/L (13-61)
[2022-07-17 10:02] LABS: BILIRUBIN,TOTAL 0.3 mg/dL (0.2-1)
[2022-07-17 10:03] LABS: ALK PHOS 84 U/L (45-117)
[2022-07-17 10:21] LABS: ANISOCYTOSIS 1+; MACROCYTOSIS 0
[2022-07-17 10:32] LABS: BLOOD UREA NITROGEN 154.2 mg/dL (7-18); GLUCOSE,RANDOM 464 mg/dL (74-106)
[2022-07-17] MEDS: MUPIROCIN 2% TOPICAL OINTMENT FOR DECOLONIZATION NS SCH ×2 (10:42→21:51)
[2022-07-17] MEDS: risperiDONE 0.25 MG TABLET PO SCH ×2 (10:43→21:54)
[2022-07-17] MEDS: ASPIRIN COATED 81 MG TABLET.EC PO SCH (10:43)
[2022-07-17] MEDS: PANTOPRAZOLE 40 MG TABLET PO SCH (10:44)
[2022-07-17] MEDS: ENALAPRIL MALEATE 10 MG TABLET PO SCH ×2 (10:44→21:54)
[2022-07-17] MEDS: amLODIPine BESYLATE 5 MG TABLET (FP) PO SCH (10:45)
[2022-07-17] MEDS: ASCORBIC ACID 500 MG TABLET (FP) PO SCH (10:47)
[2022-07-17] MEDS: DEXMEDETOMIDINE PREMIX 400 MCG/100 ML BAG IVPB SCH (10:52)
[2022-07-17] MEDS ORDERED: SODIUM CHLORIDE 0.9% 500 ML INFUS.BAG IV ONE (12:31)
[2022-07-17 16:08] LABS: ATYPICAL pANCA <1:20 titer (Neg:<1:20); C-ANCA <1:20 titer (Neg:<1:20)
[2022-07-17] MEDS: ATORVASTATIN CA 40 MG TABLET (FP) PO SCH (21:53)
[2022-07-17] MEDS: CHLORHEXIDINE GLUCONATE 4% CLEANSER FOR DECOLONIZATION TP SCH (21:53)
[2022-07-17] MEDS: FAT EMUL/SOY/MCT/OLIV/FISH OIL 250 ML IV SCH (21:54)
[2022-07-18] MEDS: AMINO ACIDS 4.25%/D5W 1,000 ML IV SCH ×2 (01:15→11:55)
[2022-07-18] MEDS: HEPARIN NA (PORCINE) 5,000 UNITS/ML 1ML VIAL SQ SCH ×4 (05:06→22:55)
[2022-07-18] MEDS: INSULIN SLIDING SCALE (NOVOLOG) 1 VIAL SQ SCH ×3 (06:45→18:14)
[2022-07-18] MEDS: INSULIN (LEVEMIR) 100 UNITS/ML UNITS SQ SCH ×2 (06:45→22:55)
[2022-07-18 07:59] LABS: CHLORIDE 116 mmol/L (98-107); POTASSIUM 3.7 mmol/L (3.5-5.1); SODIUM 143 mmol/L (136-145)
[2022-07-18 08:08] LABS: ALBUMIN 1.8 g/dl (3.4-5.0); ANION GAP 12 MMOL/L (8-16); CALCIUM 8.2 mg/dL (8.5-10.1); CO2 15 mmol/L (21-32); GLUCOSE,RANDOM 340 mg/dL (74-106)
[2022-07-18 08:09] LABS: MAGNESIUM 2.4 mg/dL (1.8-2.4)
[2022-07-18 08:11] LABS: CREATININE 2.5 mg/dL (0.55-1.3); PHOSPHOROUS 5.6 mg/dL (2.5-4.9); SGOT/AST 18 U/L (15-37); SGPT/ALT 35 U/L (13-61)
[2022-07-18 08:12] LABS: TOT PROT 4.8 g/dl (6.4-8.2)
[2022-07-18 08:13] LABS: BILIRUBIN,TOTAL 0.4 mg/dL (0.2-1)
[2022-07-18 08:14] LABS: ALK PHOS 74 U/L (45-117)
[2022-07-18 08:17] LABS: HEMOGLOBIN 9.2 GM/dL (11.7-16.9); MCHC 32.9 g/dl (32.0-35.9); MEAN PLT VOLUME 9.4 fl (7.5-11.1); PLATELET COUNT 518 10^3/uL (134-434); RBC 3.42 M/mm3 (4.00-5.60); RDW 17.7 % (11.9-15.9); WHITE BLOOD COUNT 15.9 K/mm3 (4.0-10.0)
[2022-07-18] MEDS: ALBUTEROL SO4 2.5/IPRATROPIUM 0.5 INH SOL 3 ML VIAL.NEB. NEB SCH ×4 (09:29→20:05)
[2022-07-18] MEDS: risperiDONE 0.25 MG TABLET PO SCH ×2 (09:52→22:56)
[2022-07-18] MEDS: ASPIRIN COATED 81 MG TABLET.EC PO SCH (09:52)
[2022-07-18] MEDS: ASCORBIC ACID 500 MG TABLET (FP) PO SCH (09:53)
[2022-07-18] MEDS: MUPIROCIN 2% TOPICAL OINTMENT FOR DECOLONIZATION NS SCH (09:54)
[2022-07-18 09:57] LABS: ANISOCYTOSIS 1+; MACROCYTOSIS 0
[2022-07-18] MEDS: PANTOPRAZOLE 40 MG TABLET PO SCH (09:59)
[2022-07-18] MEDS ORDERED: methylPREDNISolone NA SUCC 40 MG/1 ML VIAL IVPUSH SCH (10:00)
[2022-07-18] MEDS: amLODIPine BESYLATE 5 MG TABLET (FP) PO SCH (11:58)
[2022-07-18] MEDS: ENALAPRIL MALEATE 10 MG TABLET PO SCH ×2 (11:58→22:56)
[2022-07-18] MEDS: DEXMEDETOMIDINE PREMIX 400 MCG/100 ML BAG IVPB SCH (12:00)
[2022-07-18] MEDS ORDERED: DEXMEDETOMIDINE PREMIX 400 MCG/100 ML BAG IVPB SCH (13:39)
[2022-07-18] MEDS ORDERED: SODIUM CHLORIDE 0.45% 1,000 ML IV SCH (13:45)
[2022-07-18] MEDS ORDERED: MUPIROCIN 2% TOPICAL OINTMENT FOR DECOLONIZATION NS SCH (22:00)
[2022-07-18] MEDS ORDERED: FAT EMULSION/OLIVE/SOY/PHOSPHO 250 ML IV SCH (22:00)
[2022-07-18] MEDS ORDERED: CHLORHEXIDINE GLUCONATE 4% CLEANSER FOR DECOLONIZATION TP SCH (22:00)
[2022-07-18] MEDS: ATORVASTATIN CA 40 MG TABLET (FP) PO SCH (22:56)
[2022-07-19] MEDS: HEPARIN NA (PORCINE) 5,000 UNITS/ML 1ML VIAL SQ SCH ×3 (06:05→22:46)
[2022-07-19] MEDS: INSULIN SLIDING SCALE (NOVOLOG) 1 VIAL SQ SCH ×3 (06:05→17:22)
[2022-07-19] MEDS: INSULIN (LEVEMIR) 100 UNITS/ML UNITS SQ SCH ×2 (06:05→22:35)
[2022-07-19 07:26] LABS: HEMATOCRIT 30.6 % (35.4-49); HEMOGLOBIN 10.2 GM/dL (11.7-16.9); MCH 27.4 pg (25.7-33.7); MCHC 33.4 g/dl (32.0-35.9); MEAN PLT VOLUME 9.9 fl (7.5-11.1); PLATELET COUNT 554 10^3/uL (134-434); RBC 3.72 M/mm3 (4.00-5.60); RDW 17.8 % (11.9-15.9); WHITE BLOOD COUNT 13.2 K/mm3 (4.0-10.0)
[2022-07-19 07:40] LABS: CHLORIDE 126 mmol/L (98-107); POTASSIUM 3.6 mmol/L (3.5-5.1); SODIUM 152 mmol/L (136-145)
[2022-07-19] MEDS: ALBUTEROL SO4 2.5/IPRATROPIUM 0.5 INH SOL 3 ML VIAL.NEB. NEB SCH ×4 (07:40→20:00)
[2022-07-19 07:46] LABS: ALBUMIN 2.1 g/dl (3.4-5.0); ANION GAP 9 MMOL/L (8-16); CALCIUM 8.4 mg/dL (8.5-10.1); CO2 17 mmol/L (21-32); GLUCOSE,RANDOM 200 mg/dL (74-106); MAGNESIUM 2.7 mg/dL (1.8-2.4)
[2022-07-19 07:48] LABS: SGOT/AST 24 U/L (15-37); SGPT/ALT 41 U/L (13-61)
[2022-07-19 07:49] LABS: BILIRUBIN,TOTAL 0.6 mg/dL (0.2-1); CREATININE 2.1 mg/dL (0.55-1.3); PHOSPHOROUS 5.3 mg/dL (2.5-4.9)
[2022-07-19 07:50] LABS: TOT PROT 5.3 g/dl (6.4-8.2)
[2022-07-19 07:51] LABS: ALK PHOS 85 U/L (45-117)
[2022-07-19] MEDS ORDERED: methylPREDNISolone NA SUCC 40 MG/1 ML VIAL IVPUSH SCH (10:00)
[2022-07-19] MEDS: methylPREDNISolone NA SUCC 40 MG/1 ML VIAL IVPUSH SCH (10:42)
[2022-07-19] MEDS: risperiDONE 0.25 MG TABLET PO SCH ×2 (10:42→22:35)
[2022-07-19] MEDS: ASCORBIC ACID 500 MG TABLET (FP) PO SCH (10:42)
[2022-07-19] MEDS: ASPIRIN COATED 81 MG TABLET.EC PO SCH (10:42)
[2022-07-19] MEDS: PANTOPRAZOLE 40 MG TABLET PO SCH (10:42)
[2022-07-19] MEDS: ENALAPRIL MALEATE 10 MG TABLET PO SCH ×2 (10:43→22:34)
[2022-07-19] MEDS: amLODIPine BESYLATE 5 MG TABLET (FP) PO SCH (10:43)
[2022-07-19 11:23] LABS: ANISOCYTOSIS 0; MACROCYTOSIS 0
[2022-07-19] MEDS ORDERED: DEXTROSE 5%-WATER - 1,000 ML with POTASSIUM CHLORIDE 10 MEQ IV SCH (12:30)
[2022-07-19] MEDS: POTASSIUM CHLORIDE 10 MEQ in DEXTROSE 5%-WATER - 1,000 ML IV SCH (14:12)
[2022-07-19] MEDS: ATORVASTATIN CA 40 MG TABLET (FP) PO SCH (22:35)
[2022-07-19] MEDS ORDERED: DEXTROSE 50%-WATER 25 GM/50 ML DISP.SYRIN IVPUSH ONE (23:28)
[2022-07-19] MEDS ORDERED: DEXTROSE 50%-WATER - 25 GM/50 ML VIAL IVPUSH ONE (23:28)
[2022-07-20] MEDS ORDERED: DEXTROSE 5%-WATER - 1,000 ML IV SCH ×2 (00:30)
[2022-07-20] MEDS: POTASSIUM CHLORIDE 10 MEQ in DEXTROSE 5%-WATER - 1,000 ML IV SCH (02:11)
[2022-07-20] MEDS: HEPARIN NA (PORCINE) 5,000 UNITS/ML 1ML VIAL SQ SCH ×3 (05:41→21:14)
[2022-07-20] MEDS: INSULIN (LEVEMIR) 100 UNITS/ML UNITS SQ SCH ×2 (06:26→21:14)
[2022-07-20] MEDS: INSULIN SLIDING SCALE (NOVOLOG) 1 VIAL SQ SCH ×3 (06:26→17:41)
[2022-07-20] MEDS: ALBUTEROL SO4 2.5/IPRATROPIUM 0.5 INH SOL 3 ML VIAL.NEB. NEB SCH ×4 (07:45→20:36)
[2022-07-20 08:53] LABS: CHLORIDE 127 mmol/L (98-107); POTASSIUM 4.4 mmol/L (3.5-5.1); SODIUM 150 mmol/L (136-145)
[2022-07-20 08:57] LABS: ANION GAP 6 MMOL/L (8-16); CALCIUM 7.8 mg/dL (8.5-10.1); CO2 17 mmol/L (21-32); GLUCOSE,RANDOM 281 mg/dL (74-106)
[2022-07-20 09:00] LABS: CREATININE 1.7 mg/dL (0.55-1.3); SGOT/AST 30 U/L (15-37); SGPT/ALT 35 U/L (13-61)
[2022-07-20 09:01] LABS: BILIRUBIN,TOTAL 0.9 mg/dL (0.2-1)
[2022-07-20 09:03] LABS: ALK PHOS 78 U/L (45-117)
[2022-07-20 09:12] LABS: BLOOD UREA NITROGEN 139.2 mg/dL (7-18); TOT PROT 4.9 g/dl (6.4-8.2)
[2022-07-20] MEDS: PANTOPRAZOLE 40 MG TABLET PO SCH (09:58)
[2022-07-20] MEDS: ENALAPRIL MALEATE 10 MG TABLET PO SCH ×2 (09:58→21:16)
[2022-07-20] MEDS: amLODIPine BESYLATE 5 MG TABLET (FP) PO SCH (09:58)
[2022-07-20] MEDS: risperiDONE 0.25 MG TABLET PO SCH ×2 (09:58→21:16)
[2022-07-20] MEDS: ASCORBIC ACID 500 MG TABLET (FP) PO SCH (09:58)
[2022-07-20] MEDS: ASPIRIN COATED 81 MG TABLET.EC PO SCH (09:59)
[2022-07-20] MEDS: methylPREDNISolone NA SUCC 40 MG/1 ML VIAL IVPUSH SCH (09:59)
[2022-07-20] MEDS: DEXTROSE 5%-WATER - 1,000 ML IV SCH ×2 (11:45→17:42)
[2022-07-20] MEDS: ATORVASTATIN CA 40 MG TABLET (FP) PO SCH (21:16)
[2022-07-21] MEDS: HEPARIN NA (PORCINE) 5,000 UNITS/ML 1ML VIAL SQ SCH ×3 (06:21→22:32)
[2022-07-21] MEDS: INSULIN (LEVEMIR) 100 UNITS/ML UNITS SQ SCH ×2 (06:35→22:34)
[2022-07-21] MEDS: INSULIN SLIDING SCALE (NOVOLOG) 1 VIAL SQ SCH ×3 (06:36→17:47)
[2022-07-21] MEDS: ALBUTEROL SO4 2.5/IPRATROPIUM 0.5 INH SOL 3 ML VIAL.NEB. NEB SCH ×4 (08:05→19:58)
[2022-07-21 08:49] LABS: POTASSIUM 4.4 mmol/L (3.5-5.1)
[2022-07-21 08:50] LABS: CALCIUM 8.5 mg/dL (8.5-10.1)
[2022-07-21 08:55] LABS: BLOOD UREA NITROGEN 98.2 mg/dL (7-18); CREATININE 1.5 mg/dL (0.55-1.3)
[2022-07-21 09:05] LABS: BASO % 0.2 % (0-2.0); EOS % 0.6 % (0-4.5); HEMATOCRIT 27.5 % (35.4-49); MCH 26.8 pg (25.7-33.7); MCHC 32.6 g/dl (32.0-35.9); MEAN CELL VOLUME 82.2 fl (80-96); MEAN PLT VOLUME 10.2 fl (7.5-11.1); MONO % 5.9 % (3.8-10.2); NEUT % 90.3 % (42.8-82.8); PLATELET COUNT 522 10^3/uL (134-434); RBC 3.35 M/mm3 (4.00-5.60); RDW 17.8 % (11.9-15.9); WHITE BLOOD COUNT 10.9 K/mm3 (4.0-10.0)
[2022-07-21] MEDS: ENALAPRIL MALEATE 10 MG TABLET PO SCH ×2 (09:16→22:35)
[2022-07-21] MEDS: ASPIRIN COATED 81 MG TABLET.EC PO SCH (09:16)
[2022-07-21] MEDS: risperiDONE 0.25 MG TABLET PO SCH ×2 (09:17→22:34)
[2022-07-21] MEDS: methylPREDNISolone NA SUCC 40 MG/1 ML VIAL IVPUSH SCH (09:17)
[2022-07-21] MEDS: amLODIPine BESYLATE 5 MG TABLET (FP) PO SCH (09:17)
[2022-07-21] MEDS: PANTOPRAZOLE 40 MG TABLET PO SCH (09:17)
[2022-07-21] MEDS: ASCORBIC ACID 500 MG TABLET (FP) PO SCH (09:17)
[2022-07-21 09:20] LABS: ALBUMIN 1.9 g/dl (3.4-5.0)
[2022-07-21 09:21] LABS: MAGNESIUM 2.9 mg/dL (1.8-2.4)
[2022-07-21 09:25] LABS: PHOSPHOROUS 4.3 mg/dL (2.5-4.9)
[2022-07-21 09:26] LABS: BILIRUBIN,TOTAL 0.6 mg/dL (0.2-1); TOT PROT 4.7 g/dl (6.4-8.2)
[2022-07-21 09:37] LABS: ANISOCYTOSIS 1+; MACROCYTOSIS 1+
[2022-07-21] MEDS: THIAMINE HCL 200 MG/2 ML VIAL IVPB SCH (12:02)
[2022-07-21] MEDS: DEXTROSE 5%-WATER - 1,000 ML IV SCH (12:03)
[2022-07-21] MEDS: ATORVASTATIN CA 40 MG TABLET (FP) PO SCH (22:34)
[2022-07-21] MEDS ORDERED: INSULIN (LEVEMIR) 100 UNITS/ML UNITS SQ ONE (22:34)
[2022-07-22] MEDS ORDERED: DEXTROSE 50%-WATER 25 GM/50 ML DISP.SYRIN ONE (06:41)
[2022-07-22] MEDS ORDERED: DEXTROSE 50%-WATER 25 GM/50 ML DISP.SYRIN IVPUSH ONE (06:41)
[2022-07-22] MEDS ORDERED: DEXTROSE 50%-WATER 25 GM/50 ML DISP.SYRIN IVPUSH PRN (06:42)
[2022-07-22] MEDS: HEPARIN NA (PORCINE) 5,000 UNITS/ML 1ML VIAL SQ SCH ×3 (07:18→22:50)
[2022-07-22] MEDS: INSULIN (LEVEMIR) 100 UNITS/ML UNITS SQ SCH (07:19)
[2022-07-22] MEDS: INSULIN SLIDING SCALE (NOVOLOG) 1 VIAL SQ SCH ×3 (07:19→17:20)
[2022-07-22 07:34] LABS: BASO % 0.4 % (0-2.0); EOS % 0.7 % (0-4.5); HEMATOCRIT 27.4 % (35.4-49); HEMOGLOBIN 9.4 GM/dL (11.7-16.9); LYMPH % 3.9 % (8-40); MCH 27.9 pg (25.7-33.7); MCHC 34.2 g/dl (32.0-35.9); MEAN CELL VOLUME 81.6 fl (80-96); MONO % 5.8 % (3.8-10.2); NEUT % 89.2 % (42.8-82.8); PLATELET COUNT 508 10^3/uL (134-434); RBC 3.36 M/mm3 (4.00-5.60); RDW 17.9 % (11.9-15.9); WHITE BLOOD COUNT 11.9 K/mm3 (4.0-10.0)
[2022-07-22] MEDS: ALBUTEROL SO4 2.5/IPRATROPIUM 0.5 INH SOL 3 ML VIAL.NEB. NEB SCH ×4 (07:55→19:58)
[2022-07-22 08:00] LABS: POTASSIUM 4.1 mmol/L (3.5-5.1)
[2022-07-22 08:09] LABS: BLOOD UREA NITROGEN 76.7 mg/dL (7-18); MAGNESIUM 2.6 mg/dL (1.8-2.4)
[2022-07-22 08:12] LABS: CREATININE 1.4 mg/dL (0.55-1.3); PHOSPHOROUS 3.4 mg/dL (2.5-4.9)
[2022-07-22 08:13] LABS: BILIRUBIN,TOTAL 0.9 mg/dL (0.2-1); TOT PROT 4.8 g/dl (6.4-8.2)
[2022-07-22] MEDS: risperiDONE 0.25 MG TABLET PO SCH ×2 (10:30→22:50)
[2022-07-22] MEDS: methylPREDNISolone NA SUCC 40 MG/1 ML VIAL IVPUSH SCH (10:30)
[2022-07-22] MEDS: amLODIPine BESYLATE 5 MG TABLET (FP) PO SCH (10:31)
[2022-07-22] MEDS: ASCORBIC ACID 500 MG TABLET (FP) PO SCH (10:31)
[2022-07-22] MEDS: PANTOPRAZOLE 40 MG TABLET PO SCH (10:31)
[2022-07-22] MEDS: ASPIRIN COATED 81 MG TABLET.EC PO SCH (10:33)
[2022-07-22] MEDS: THIAMINE HCL 200 MG/2 ML VIAL IVPB SCH (10:34)
[2022-07-22] MEDS: ENALAPRIL MALEATE 10 MG TABLET PO SCH ×2 (10:35→22:51)
[2022-07-22] MEDS: DEXTROSE 5%-WATER - 1,000 ML IV SCH ×2 (10:37→13:52)
[2022-07-22] MEDS ORDERED: DEXTROSE 50%-WATER - 25 GM/50 ML VIAL IVPUSH ONE (12:26)
[2022-07-22] MEDS ORDERED: DEXTROSE 50%-WATER - 25 GM/50 ML VIAL IVPUSH PRN (12:37)
[2022-07-22] MEDS ORDERED: DEXTROSE 50%-WATER - 25 GM/50 ML VIAL ONE (12:39)
[2022-07-22] MEDS: AMINO ACIDS 4.25%/D5W 1,000 ML IV SCH (13:52)
[2022-07-22] MEDS: ATORVASTATIN CA 40 MG TABLET (FP) PO SCH (22:50)
[2022-07-23] MEDS: HEPARIN NA (PORCINE) 5,000 UNITS/ML 1ML VIAL SQ SCH ×3 (05:59→21:40)
[2022-07-23] MEDS: INSULIN SLIDING SCALE (NOVOLOG) 1 VIAL SQ SCH ×3 (06:04→18:39)
[2022-07-23] MEDS ORDERED: INSULIN (LEVEMIR) 100 UNITS/ML UNITS SQ SCH (07:00)
[2022-07-23 07:43] LABS: BASO % 0.2 % (0-2.0); EOS % 0.7 % (0-4.5); HEMATOCRIT 30.7 % (35.4-49); HEMOGLOBIN 10.1 GM/dL (11.7-16.9); LYMPH % 4.2 % (8-40); MCH 27.1 pg (25.7-33.7); MEAN CELL VOLUME 82.2 fl (80-96); MEAN PLT VOLUME 10.5 fl (7.5-11.1); MONO % 5.3 % (3.8-10.2); NEUT % 89.6 % (42.8-82.8); PLATELET COUNT 584 10^3/uL (134-434); RBC 3.73 M/mm3 (4.00-5.60); RDW 17.7 % (11.9-15.9); WHITE BLOOD COUNT 12.3 K/mm3 (4.0-10.0)
[2022-07-23] MEDS: ALBUTEROL SO4 2.5/IPRATROPIUM 0.5 INH SOL 3 ML VIAL.NEB. NEB SCH ×4 (07:45→19:55)
[2022-07-23 07:57] LABS: POTASSIUM 4.5 mmol/L (3.5-5.1)
[2022-07-23 08:00] LABS: CALCIUM 8.6 mg/dL (8.5-10.1)
[2022-07-23 08:01] LABS: ALBUMIN 2.2 g/dl (3.4-5.0); BLOOD UREA NITROGEN 57.6 mg/dL (7-18); MAGNESIUM 2.9 mg/dL (1.8-2.4)
[2022-07-23 08:04] LABS: CREATININE 1.3 mg/dL (0.55-1.3)
[2022-07-23 08:05] LABS: BILIRUBIN,TOTAL 0.8 mg/dL (0.2-1); TOT PROT 5.4 g/dl (6.4-8.2)
[2022-07-23] MEDS ORDERED: methylPREDNISolone NA SUCC 40 MG/1 ML VIAL IVPUSH SCH (10:00)
[2022-07-23] MEDS: risperiDONE 0.25 MG TABLET PO SCH ×2 (10:28→21:38)
[2022-07-23] MEDS: PANTOPRAZOLE 40 MG TABLET PO SCH (10:28)
[2022-07-23] MEDS: ASCORBIC ACID 500 MG TABLET (FP) PO SCH (10:28)
[2022-07-23] MEDS: ASPIRIN COATED 81 MG TABLET.EC PO SCH (10:28)
[2022-07-23] MEDS: THIAMINE HCL 200 MG/2 ML VIAL IVPB SCH (10:28)
[2022-07-23] MEDS: amLODIPine BESYLATE 5 MG TABLET (FP) PO SCH (10:28)
[2022-07-23] MEDS: ENALAPRIL MALEATE 10 MG TABLET PO SCH ×2 (11:57→21:40)
[2022-07-23] MEDS: AMINO ACIDS 4.25%/D5W 1,000 ML IV SCH (15:00)
[2022-07-23] MEDS: DEXTROSE 5%-WATER - 1,000 ML IV SCH ×2 (15:17)
[2022-07-23] MEDS ORDERED: LORazepam 2 MG/ML SDV VIAL IVPUSH ONE (16:19)
[2022-07-23] MEDS: ATORVASTATIN CA 40 MG TABLET (FP) PO SCH (21:38)
[2022-07-24] MEDS: HEPARIN NA (PORCINE) 5,000 UNITS/ML 1ML VIAL SQ SCH (06:12)
[2022-07-24] MEDS: INSULIN SLIDING SCALE (NOVOLOG) 1 VIAL SQ SCH ×3 (06:18→17:30)
[2022-07-24 06:49] LABS: HEMATOCRIT 30.8 % (35.4-49); HEMOGLOBIN 10.2 GM/dL (11.7-16.9); MCH 27.4 pg (25.7-33.7); MCHC 33.1 g/dl (32.0-35.9); MEAN CELL VOLUME 82.8 fl (80-96); MEAN PLT VOLUME 10.9 fl (7.5-11.1); PLATELET COUNT 548 10^3/uL (134-434); RBC 3.72 M/mm3 (4.00-5.60); RDW 17.4 % (11.9-15.9); WHITE BLOOD COUNT 15.5 K/mm3 (4.0-10.0)
[2022-07-24 07:11] LABS: POTASSIUM 4.1 mmol/L (3.5-5.1)
[2022-07-24 07:15] LABS: CALCIUM 8.5 mg/dL (8.5-10.1)
[2022-07-24 07:16] LABS: ALBUMIN 2.3 g/dl (3.4-5.0); BLOOD UREA NITROGEN 61.7 mg/dL (7-18); MAGNESIUM 2.4 mg/dL (1.8-2.4)
[2022-07-24 07:19] LABS: CREATININE 1.4 mg/dL (0.55-1.3); PHOSPHOROUS 3.1 mg/dL (2.5-4.9)
[2022-07-24 07:20] LABS: BILIRUBIN,TOTAL 0.6 mg/dL (0.2-1); TOT PROT 5.3 g/dl (6.4-8.2)
[2022-07-24] MEDS: ALBUTEROL SO4 2.5/IPRATROPIUM 0.5 INH SOL 3 ML VIAL.NEB. NEB SCH ×4 (07:45→20:22)
[2022-07-24] MEDS: PANTOPRAZOLE 40 MG TABLET PO SCH (10:17)
[2022-07-24] MEDS: risperiDONE 0.25 MG TABLET PO SCH ×2 (10:17→22:30)
[2022-07-24] MEDS: THIAMINE HCL 200 MG/2 ML VIAL IVPB SCH (10:17)
[2022-07-24] MEDS: ASPIRIN COATED 81 MG TABLET.EC PO SCH (10:17)
[2022-07-24] MEDS: amLODIPine BESYLATE 5 MG TABLET (FP) PO SCH (10:17)
[2022-07-24] MEDS: ASCORBIC ACID 500 MG TABLET (FP) PO SCH (10:17)
[2022-07-24] MEDS: ENALAPRIL MALEATE 10 MG TABLET PO SCH ×2 (10:18→22:30)
[2022-07-24] MEDS: DEXTROSE 5%-WATER - 1,000 ML IV SCH ×2 (12:50→15:01)
[2022-07-24] MEDS: AMINO ACIDS 4.25%/D5W 1,000 ML IV SCH (14:30)
[2022-07-24] MEDS: ATORVASTATIN CA 40 MG TABLET (FP) PO SCH (22:29)
[2022-07-24] MEDS: ENOXAPARIN NA (PORCINE) 80 MG/0.8 ML DISP.SYRIN SQ SCH (22:30)
[2022-07-25] MEDS: INSULIN SLIDING SCALE (NOVOLOG) 1 VIAL SQ SCH ×3 (06:04→17:01)
[2022-07-25 06:23] LABS: HEMOGLOBIN 8.9 GM/dL (11.7-16.9); MCH 27.2 pg (25.7-33.7); MCHC 32.9 g/dl (32.0-35.9); MEAN CELL VOLUME 82.6 fl (80-96); MEAN PLT VOLUME 10.6 fl (7.5-11.1); PLATELET COUNT 414 10^3/uL (134-434); RBC 3.27 M/mm3 (4.00-5.60); WHITE BLOOD COUNT 16.2 K/mm3 (4.0-10.0)
[2022-07-25 06:42] LABS: POTASSIUM 3.9 mmol/L (3.5-5.1)
[2022-07-25 06:45] LABS: BLOOD UREA NITROGEN 54.6 mg/dL (7-18); MAGNESIUM 2.4 mg/dL (1.8-2.4)
[2022-07-25 06:48] LABS: CREATININE 1.4 mg/dL (0.55-1.3); PHOSPHOROUS 2.7 mg/dL (2.5-4.9)
[2022-07-25 06:49] LABS: TOT PROT 4.8 g/dl (6.4-8.2)
[2022-07-25 06:50] LABS: BILIRUBIN,TOTAL 0.5 mg/dL (0.2-1)
[2022-07-25] MEDS: ALBUTEROL SO4 2.5/IPRATROPIUM 0.5 INH SOL 3 ML VIAL.NEB. NEB SCH ×4 (08:04→19:42)
[2022-07-25 09:12] LABS: ANISOCYTOSIS 0; HELMET CELLS 0; HOWELL-JOLLY BODIES 0; MACROCYTOSIS 0; OVALOCYTE 0; ROULEAU 0; SICKELED CELLS 0; TARGET CELLS 0; TEAR DROP CELLS 0; TOXIC GRANULATION 0
[2022-07-25] MEDS ORDERED: MIDAZOLAM HCL 2 MG/2 ML SINGLE DOSE VIAL ONE ×2 (10:14→10:55)
[2022-07-25] MEDS ORDERED: FENTANYL CITRATE/PF 50 MCG/ML VIAL ONE (10:14)
[2022-07-25] MEDS ORDERED: MIDAZOLAM HCL 2 MG/2 ML SINGLE DOSE VIAL IVPUSH ONE ×2 (10:20→10:50)
[2022-07-25] MEDS: risperiDONE 0.25 MG TABLET PO SCH ×2 (11:49→22:13)
[2022-07-25] MEDS: PANTOPRAZOLE 40 MG TABLET PO SCH (11:49)
[2022-07-25] MEDS: ASCORBIC ACID 500 MG TABLET (FP) PO SCH (11:50)
[2022-07-25] MEDS: ENALAPRIL MALEATE 10 MG TABLET PO SCH ×2 (11:50→22:13)
[2022-07-25] MEDS: ENOXAPARIN NA (PORCINE) 80 MG/0.8 ML DISP.SYRIN SQ SCH ×2 (11:59→22:14)
[2022-07-25] MEDS: THIAMINE HCL 200 MG/2 ML VIAL IVPB SCH (12:00)
[2022-07-25 12:50] LABS: EPI CELLS 7 /uL (0-25.1); HYALINE CASTS 2 /uL (0-3.1); PH,URINE 5.5 (5.0-8.0); URINE APPEARANCE TURBID; URINE BACTERIA 165 /uL (0-1359); URINE BILIRUBIN NEGATIVE (NEGATIVE); URINE COLOR YELLOW; URINE GLUCOSE (UA) NEGATIVE (NEGATIVE); URINE KETONE NEGATIVE (NEGATIVE); URINE LEUK ESTERASE 3+ (NEGATIVE); URINE NITRITE NEGATIVE (NEGATIVE); URINE PROTEIN 2+ (NEGATIVE); URINE UROBILINOGEN 0.2 mg/dL (0.2-1.0); URINE WBC 1481 /uL (0-25.8)
[2022-07-25 14:10] LABS: URINE CRYSTALS URIC ACID FEW /hpf; URINE RBC 363.9 /uL (0-23.9); YEAST NEGATIVE (NEGATIVE)
[2022-07-25] MEDS: AMINO ACIDS 4.25%/D5W 1,000 ML IV SCH ×2 (15:36→17:12)
[2022-07-25] MEDS: DEXTROSE 5%-WATER - 1,000 ML IV SCH ×2 (15:38→17:12)
[2022-07-25] MEDS: amLODIPine BESYLATE 5 MG TABLET (FP) PO SCH (16:40)
[2022-07-25] MEDS: ZINC OXIDE 20% TOPICAL OINTMENT 30 GM TUBE TP SCH ×2 (16:54→22:13)
[2022-07-25] MEDS: ATORVASTATIN CA 40 MG TABLET (FP) PO SCH (22:12)
[2022-07-26] MEDS: AMINO ACIDS 4.25%/D5W 1,000 ML IV SCH ×3 (06:18→22:23)
[2022-07-26] MEDS: DEXTROSE 5%-WATER - 1,000 ML IV SCH (06:18)
[2022-07-26] MEDS: INSULIN SLIDING SCALE (NOVOLOG) 1 VIAL SQ SCH ×3 (06:28→17:41)
[2022-07-26 07:13] LABS: BASO % 0.3 % (0-2.0); EOS % 3.3 % (0-4.5); HEMATOCRIT 25.2 % (35.4-49); HEMOGLOBIN 8.4 GM/dL (11.7-16.9); LYMPH % 4.2 % (8-40); MCH 27.5 pg (25.7-33.7); MCHC 33.1 g/dl (32.0-35.9); MEAN PLT VOLUME 10.6 fl (7.5-11.1); NEUT % 86.2 % (42.8-82.8); PLATELET COUNT 395 10^3/uL (134-434); RBC 3.04 M/mm3 (4.00-5.60); RDW 18.5 % (11.9-15.9); WHITE BLOOD COUNT 15.1 K/mm3 (4.0-10.0)
[2022-07-26 07:30] LABS: POTASSIUM 3.7 mmol/L (3.5-5.1)
[2022-07-26 07:34] LABS: MAGNESIUM 2.1 mg/dL (1.8-2.4)
[2022-07-26 07:35] LABS: BLOOD UREA NITROGEN 44.6 mg/dL (7-18)
[2022-07-26 07:37] LABS: PHOSPHOROUS 1.6 mg/dL (2.5-4.9)
[2022-07-26 07:38] LABS: CREATININE 1.4 mg/dL (0.55-1.3)
[2022-07-26 07:39] LABS: BILIRUBIN,TOTAL 0.5 mg/dL (0.2-1); TOT PROT 4.9 g/dl (6.4-8.2)
[2022-07-26] MEDS: ALBUTEROL SO4 2.5/IPRATROPIUM 0.5 INH SOL 3 ML VIAL.NEB. NEB SCH ×4 (07:54→20:17)
[2022-07-26] MEDS: ENOXAPARIN NA (PORCINE) 80 MG/0.8 ML DISP.SYRIN SQ SCH ×2 (09:52→21:17)
[2022-07-26] MEDS: THIAMINE HCL 200 MG/2 ML VIAL IVPB SCH (09:52)
[2022-07-26] MEDS: amLODIPine BESYLATE 5 MG TABLET (FP) PO SCH ×2 (09:53→10:21)
[2022-07-26] MEDS: PANTOPRAZOLE 40 MG TABLET PO SCH ×2 (09:53→10:22)
[2022-07-26] MEDS: risperiDONE 0.25 MG TABLET PO SCH ×3 (09:53→21:14)
[2022-07-26] MEDS: ASCORBIC ACID 500 MG TABLET (FP) PO SCH (09:53)
[2022-07-26] MEDS: ENALAPRIL MALEATE 10 MG TABLET PO SCH ×3 (09:55→21:14)
[2022-07-26] MEDS: ZINC OXIDE 20% TOPICAL OINTMENT 30 GM TUBE TP SCH ×2 (10:25→21:14)
[2022-07-26] MEDS: SODIUM CHLORIDE 0.45% 1,000 ML IV SCH (14:13)
[2022-07-26] MEDS: METOPROLOL TARTRATE 50 MG TABLET (FP) PO SCH ×2 (14:14→21:38)
[2022-07-26] MEDS ORDERED: METOPROLOL TARTRATE 5 MG/5 ML VIAL IVPUSH PRN (19:53)
[2022-07-26] MEDS: ATORVASTATIN CA 40 MG TABLET (FP) PO SCH (21:13)
[2022-07-27] MEDS: INSULIN SLIDING SCALE (NOVOLOG) 1 VIAL SQ SCH ×3 (06:18→17:02)
[2022-07-27] MEDS: SODIUM CHLORIDE 0.45% 1,000 ML IV SCH (06:21)
[2022-07-27 07:02] LABS: BASO % 0.3 % (0-2.0); EOS % 3.2 % (0-4.5); HEMOGLOBIN 8.3 GM/dL (11.7-16.9); LYMPH % 4.5 % (8-40); MCH 28.1 pg (25.7-33.7); MCHC 34.5 g/dl (32.0-35.9); MEAN CELL VOLUME 81.5 fl (80-96); MEAN PLT VOLUME 9.6 fl (7.5-11.1); MONO % 5.2 % (3.8-10.2); NEUT % 86.8 % (42.8-82.8); PLATELET COUNT 407 10^3/uL (134-434); RBC 2.95 M/mm3 (4.00-5.60); WHITE BLOOD COUNT 14.1 K/mm3 (4.0-10.0)
[2022-07-27 07:09] LABS: POTASSIUM 3.3 mmol/L (3.5-5.1)
[2022-07-27 07:12] LABS: CALCIUM 7.5 mg/dL (8.5-10.1)
[2022-07-27 07:13] LABS: ALBUMIN 1.9 g/dl (3.4-5.0); BLOOD UREA NITROGEN 43.7 mg/dL (7-18); MAGNESIUM 1.9 mg/dL (1.8-2.4)
[2022-07-27] MEDS: ALBUTEROL SO4 2.5/IPRATROPIUM 0.5 INH SOL 3 ML VIAL.NEB. NEB SCH ×4 (07:15→19:38)
[2022-07-27 07:16] LABS: CREATININE 1.3 mg/dL (0.55-1.3); PHOSPHOROUS 1.8 mg/dL (2.5-4.9)
[2022-07-27 07:17] LABS: BILIRUBIN,TOTAL 0.6 mg/dL (0.2-1)
[2022-07-27 07:18] LABS: TOT PROT 4.7 g/dl (6.4-8.2)
[2022-07-27] MEDS: KCL 10 MEQ IVPB 10 MEQ/100 ML INFUS.BAG IVPB SCH ×2 (09:35→10:39)
[2022-07-27] MEDS: THIAMINE HCL 200 MG/2 ML VIAL IVPB SCH (09:36)
[2022-07-27] MEDS: PANTOPRAZOLE 40 MG TABLET PO SCH (09:36)
[2022-07-27] MEDS: METOPROLOL TARTRATE 50 MG TABLET (FP) PO SCH ×3 (09:36→22:21)
[2022-07-27] MEDS: ASCORBIC ACID 500 MG TABLET (FP) PO SCH (09:36)
[2022-07-27] MEDS: ENOXAPARIN NA (PORCINE) 80 MG/0.8 ML DISP.SYRIN SQ SCH ×2 (09:36→22:04)
[2022-07-27] MEDS: risperiDONE 0.25 MG TABLET PO SCH ×3 (09:36→22:22)
[2022-07-27] MEDS: amLODIPine BESYLATE 5 MG TABLET (FP) PO SCH (09:36)
[2022-07-27] MEDS: ENALAPRIL MALEATE 10 MG TABLET PO SCH ×3 (09:39→22:22)
[2022-07-27] MEDS: ZINC OXIDE 20% TOPICAL OINTMENT 30 GM TUBE TP SCH ×2 (11:56→22:04)
[2022-07-27] MEDS ORDERED: SODIUM CHLORIDE 0.45% 1,000 ML IV SCH (12:45)
[2022-07-27] MEDS ORDERED: POTASSIUM PHOSPHATE 30 MM in DEXTROSE 5%-WATER - 500 ML IVPB ONE (13:15)
[2022-07-27] MEDS: AMINO ACIDS 4.25%/D5W 1,000 ML IV SCH (15:45)
[2022-07-27] MEDS: CHLORHEXIDINE GLUCONATE 0.12% 15ML CUP MM SCH ×2 (22:03→22:21)
[2022-07-27] MEDS: ATORVASTATIN CA 40 MG TABLET (FP) PO SCH (22:03)
[2022-07-28] MEDS: INSULIN SLIDING SCALE (NOVOLOG) 1 VIAL SQ SCH ×3 (06:35→16:54)
[2022-07-28 07:09] LABS: POTASSIUM 3.7 mmol/L (3.5-5.1)
[2022-07-28 07:10] LABS: BASO % 0.4 % (0-2.0); EOS % 2.9 % (0-4.5); HEMATOCRIT 25.5 % (35.4-49); HEMOGLOBIN 8.3 GM/dL (11.7-16.9); LYMPH % 5.1 % (8-40); MCHC 32.6 g/dl (32.0-35.9); MEAN CELL VOLUME 82.7 fl (80-96); MEAN PLT VOLUME 9.3 fl (7.5-11.1); MONO % 5.4 % (3.8-10.2); NEUT % 86.2 % (42.8-82.8); PLATELET COUNT 426 10^3/uL (134-434); RBC 3.08 M/mm3 (4.00-5.60); RDW 18.2 % (11.9-15.9); WHITE BLOOD COUNT 12.7 K/mm3 (4.0-10.0)
[2022-07-28] MEDS: ALBUTEROL SO4 2.5/IPRATROPIUM 0.5 INH SOL 3 ML VIAL.NEB. NEB SCH ×4 (07:10→20:05)
[2022-07-28 07:11] LABS: CALCIUM 7.5 mg/dL (8.5-10.1)
[2022-07-28 07:12] LABS: ALBUMIN 1.8 g/dl (3.4-5.0); BLOOD UREA NITROGEN 43.7 mg/dL (7-18); MAGNESIUM 1.9 mg/dL (1.8-2.4)
[2022-07-28 07:15] LABS: CREATININE 1.4 mg/dL (0.55-1.3); PHOSPHOROUS 2.6 mg/dL (2.5-4.9)
[2022-07-28 07:16] LABS: TOT PROT 4.8 g/dl (6.4-8.2)
[2022-07-28 07:17] LABS: BILIRUBIN,TOTAL 0.5 mg/dL (0.2-1); INR 1.51 (0.83-1.09); PROTHROMBIN TIME (PATIENT) 17.5 SEC (9.7-13.0)
[2022-07-28] MEDS: KCL 10 MEQ IVPB 10 MEQ/100 ML INFUS.BAG IVPB SCH ×5 (09:20→15:12)
[2022-07-28] MEDS: METOPROLOL TARTRATE 50 MG TABLET (FP) PO SCH ×2 (09:31→21:50)
[2022-07-28] MEDS: ENOXAPARIN NA (PORCINE) 80 MG/0.8 ML DISP.SYRIN SQ SCH ×2 (09:31→21:50)
[2022-07-28] MEDS: risperiDONE 0.25 MG TABLET PO SCH ×2 (09:32→21:51)
[2022-07-28] MEDS: ENALAPRIL MALEATE 10 MG TABLET PO SCH ×2 (09:32→21:51)
[2022-07-28] MEDS: amLODIPine BESYLATE 5 MG TABLET (FP) PO SCH (09:32)
[2022-07-28] MEDS: PANTOPRAZOLE 40 MG TABLET PO SCH (09:32)
[2022-07-28] MEDS: ASCORBIC ACID 500 MG TABLET (FP) PO SCH (09:33)
[2022-07-28] MEDS: ZINC OXIDE 20% TOPICAL OINTMENT 30 GM TUBE TP SCH ×2 (09:34→22:07)
[2022-07-28] MEDS ORDERED: FENTANYL CITRATE/PF 50 MCG/ML VIAL ONE (11:47)
[2022-07-28] MEDS ORDERED: FENTANYL CITRATE/PF 50 MCG/ML VIAL IVPUSH ONE ×2 (12:30→12:40)
[2022-07-28] MEDS: THIAMINE HCL 200 MG/2 ML VIAL IVPB SCH (13:50)
[2022-07-28] MEDS: CHLORHEXIDINE GLUCONATE 0.12% 15ML CUP MM SCH ×2 (14:11→21:51)
[2022-07-28] MEDS: AMINO ACIDS 4.25%/D5W 1,000 ML IV SCH ×2 (15:47→22:57)
[2022-07-28] MEDS: ACETAMINOPHEN 1000 MG/100 ML BAG IVPB PRN (20:23)
[2022-07-28] MEDS: ATORVASTATIN CA 40 MG TABLET (FP) PO SCH (21:49)
[2022-07-29] MEDS: ACETAMINOPHEN 1000 MG/100 ML BAG IVPB PRN (04:33)
[2022-07-29] MEDS: INSULIN SLIDING SCALE (NOVOLOG) 1 VIAL SQ SCH ×3 (06:25→18:16)
[2022-07-29] MEDS: ALBUTEROL SO4 2.5/IPRATROPIUM 0.5 INH SOL 3 ML VIAL.NEB. NEB SCH ×4 (08:15→20:49)
[2022-07-29] MEDS: ENOXAPARIN NA (PORCINE) 80 MG/0.8 ML DISP.SYRIN SQ SCH ×2 (10:28→21:56)
[2022-07-29] MEDS: METOPROLOL TARTRATE 50 MG TABLET (FP) PO SCH ×2 (10:28→21:56)
[2022-07-29] MEDS: ENALAPRIL MALEATE 10 MG TABLET PO SCH ×2 (10:29→21:55)
[2022-07-29] MEDS: CHLORHEXIDINE GLUCONATE 0.12% 15ML CUP MM SCH ×2 (10:29→21:55)
[2022-07-29] MEDS: risperiDONE 0.25 MG TABLET PO SCH ×2 (10:29→21:55)
[2022-07-29] MEDS: PANTOPRAZOLE 40 MG TABLET PO SCH (10:29)
[2022-07-29] MEDS: amLODIPine BESYLATE 5 MG TABLET (FP) PO SCH (10:29)
[2022-07-29] MEDS: ASCORBIC ACID 500 MG TABLET (FP) PO SCH (10:30)
[2022-07-29] MEDS: ZINC OXIDE 20% TOPICAL OINTMENT 30 GM TUBE TP SCH ×2 (10:30→21:56)
[2022-07-29] MEDS: THIAMINE HCL 200 MG/2 ML VIAL IVPB SCH (10:30)
[2022-07-29 11:09] LABS: HEMATOCRIT 24.9 % (35.4-49); HEMOGLOBIN 8.2 GM/dL (11.7-16.9); MCH 27.1 pg (25.7-33.7); MEAN CELL VOLUME 82.2 fl (80-96); MEAN PLT VOLUME 8.7 fl (7.5-11.1); PLATELET COUNT 413 10^3/uL (134-434); RBC 3.03 M/mm3 (4.00-5.60); RDW 18.2 % (11.9-15.9)
[2022-07-29 11:33] LABS: POTASSIUM 3.5 mmol/L (3.5-5.1)
[2022-07-29 11:35] LABS: CALCIUM 7.9 mg/dL (8.5-10.1); MAGNESIUM 1.9 mg/dL (1.8-2.4)
[2022-07-29 11:36] LABS: ALBUMIN 1.8 g/dl (3.4-5.0)
[2022-07-29 11:39] LABS: CREATININE 1.3 mg/dL (0.55-1.3)
[2022-07-29 11:40] LABS: PHOSPHOROUS 2.4 mg/dL (2.5-4.9)
[2022-07-29 11:41] LABS: BILIRUBIN,TOTAL 0.5 mg/dL (0.2-1)
[2022-07-29] MEDS ORDERED: MAGNESIUM SULF 50% (8.12 MEQ/2 ML-1 GM VIAL) IVPB ONE ×2 (15:24→21:45)
[2022-07-29] MEDS ORDERED: POTASSIUM PHOSPHATE 30 MM in SODIUM CHLORIDE 250 ML IVPB ONE (15:45)
[2022-07-29] MEDS ORDERED: POTASSIUM PHOSPHATE 30 MM in SODIUM CHLORIDE 500 ML IVPB ONE (17:00)
[2022-07-29] MEDS: KCL 10 MEQ IVPB 10 MEQ/100 ML INFUS.BAG IVPB SCH ×3 (18:23→21:00)
[2022-07-29] MEDS: AMINO ACIDS 4.25%/D5W 1,000 ML IV SCH (18:38)
[2022-07-29] MEDS: CEFTRIAXONE 1 GM in DEXTROSE 5%-WATER - 50 ML IVPB SCH (20:30)
[2022-07-29] MEDS: ATORVASTATIN CA 40 MG TABLET (FP) PO SCH (21:56)
[2022-07-29] MEDS ORDERED: THIAMINE HCL 200 MG/2 ML VIAL IVPB SCH (22:00)
[2022-07-30] MEDS: INSULIN SLIDING SCALE (NOVOLOG) 1 VIAL SQ SCH ×3 (06:26→17:22)
[2022-07-30 07:11] LABS: HEMATOCRIT 24.4 % (35.4-49); HEMOGLOBIN 8.4 GM/dL (11.7-16.9); MCH 28.2 pg (25.7-33.7); MCHC 34.2 g/dl (32.0-35.9); MEAN CELL VOLUME 82.5 fl (80-96); MEAN PLT VOLUME 9.3 fl (7.5-11.1); PLATELET COUNT 376 10^3/uL (134-434); RBC 2.96 M/mm3 (4.00-5.60); RDW 18.4 % (11.9-15.9)
[2022-07-30] MEDS: ALBUTEROL SO4 2.5/IPRATROPIUM 0.5 INH SOL 3 ML VIAL.NEB. NEB SCH ×4 (07:29→20:36)
[2022-07-30 07:41] LABS: POTASSIUM 4.1 mmol/L (3.5-5.1)
[2022-07-30 07:43] LABS: CALCIUM 8.1 mg/dL (8.5-10.1)
[2022-07-30 07:44] LABS: ALBUMIN 1.9 g/dl (3.4-5.0); BLOOD UREA NITROGEN 42.5 mg/dL (7-18)
[2022-07-30 07:45] LABS: MAGNESIUM 2.1 mg/dL (1.8-2.4)
[2022-07-30 07:47] LABS: CREATININE 1.4 mg/dL (0.55-1.3); PHOSPHOROUS 3.1 mg/dL (2.5-4.9)
[2022-07-30 07:48] LABS: TOT PROT 5.1 g/dl (6.4-8.2)
[2022-07-30 07:49] LABS: BILIRUBIN,TOTAL 0.4 mg/dL (0.2-1)
[2022-07-30] MEDS ORDERED: THIAMINE HCL 200 MG/2 ML VIAL IVPB SCH ×2 (10:00→22:00)
[2022-07-30] MEDS: ENALAPRIL MALEATE 10 MG TABLET PO SCH ×2 (10:55→22:01)
[2022-07-30] MEDS: PANTOPRAZOLE 40 MG TABLET PO SCH (10:55)
[2022-07-30] MEDS: CHLORHEXIDINE GLUCONATE 0.12% 15ML CUP MM SCH ×2 (10:55→22:02)
[2022-07-30] MEDS: CEFTRIAXONE 1 GM in DEXTROSE 5%-WATER - 50 ML IVPB SCH (10:55)
[2022-07-30] MEDS: amLODIPine BESYLATE 5 MG TABLET (FP) PO SCH (10:55)
[2022-07-30] MEDS: AMINO ACIDS/PROTEIN HYDROLYS 30 ML LIQUID.PKT PO SCH (10:55)
[2022-07-30] MEDS: ASCORBIC ACID 500 MG TABLET (FP) PO SCH (10:55)
[2022-07-30] MEDS: risperiDONE 0.25 MG TABLET PO SCH ×2 (10:56→22:01)
[2022-07-30] MEDS: ENOXAPARIN NA (PORCINE) 80 MG/0.8 ML DISP.SYRIN SQ SCH ×2 (10:56→22:02)
[2022-07-30] MEDS: ZINC OXIDE 20% TOPICAL OINTMENT 30 GM TUBE TP SCH ×2 (10:58→22:00)
[2022-07-30] MEDS ORDERED: MAGNESIUM SULF 50% (8.12 MEQ/2 ML-1 GM VIAL) IVPB ONE (14:18)
[2022-07-30] MEDS ORDERED: LACTATED RINGERS SOLUTION 1,000 ML/1,000 ML INFUS.BAG IV SCH (15:30)
[2022-07-30 17:12] LABS: ALPHA-1-GLOBULIN,CSF 6.5 % (2.6-7.0); ALPHA-2-GLOBULIN,CSF 7.1 % (3.1-8.7); BETA GLOBULIN,CSF 19.6 % (11.8-21.7); GAMMA GLOBULIN,CSF 8.8 % (2.8-8.5); M-SPIKE CSF Not Observed % (Not Observed); PRE-ALBUMIN CSF 6.2 % (1.0-5.0)
[2022-07-30] MEDS: FLUCONAZOLE 100 MG/NS 50 ML IVPB SCH (18:20)
[2022-07-30] MEDS: AMPICILLIN NA/SULBACTAM NA 1.5 GM in SODIUM CHLORIDE 100 ML IVPB SCH ×2 (18:20→22:00)
[2022-07-30] MEDS: METOPROLOL TARTRATE 50 MG TABLET (FP) PO SCH ×2 (20:57→22:02)
[2022-07-30] MEDS: ATORVASTATIN CA 40 MG TABLET (FP) PO SCH (22:01)
[2022-07-31] MEDS: AMPICILLIN NA/SULBACTAM NA 1.5 GM in SODIUM CHLORIDE 100 ML IVPB SCH ×3 (02:08→15:32)
[2022-07-31] MEDS: INSULIN SLIDING SCALE (NOVOLOG) 1 VIAL SQ SCH ×3 (06:33→17:22)
[2022-07-31 06:42] LABS: HEMATOCRIT 17.1 % (35.4-49); MCH 28.7 pg (25.7-33.7); MCHC 34.9 g/dl (32.0-35.9); MEAN CELL VOLUME 82.1 fl (80-96); MEAN PLT VOLUME 8.7 fl (7.5-11.1); PLATELET COUNT 297 10^3/uL (134-434); RBC 2.08 M/mm3 (4.00-5.60); RDW 18.4 % (11.9-15.9); WHITE BLOOD COUNT 10.4 K/mm3 (4.0-10.0)
[2022-07-31 07:12] LABS: ALBUMIN 1.5 g/dl (3.4-5.0)
[2022-07-31 07:13] LABS: BLOOD UREA NITROGEN 57.6 mg/dL (7-18)
[2022-07-31 07:15] LABS: CREATININE 1.5 mg/dL (0.55-1.3)
[2022-07-31 07:16] LABS: PHOSPHOROUS 2.4 mg/dL (2.5-4.9)
[2022-07-31 07:17] LABS: BILIRUBIN,TOTAL 0.4 mg/dL (0.2-1); TOT PROT 4.2 g/dl (6.4-8.2)
[2022-07-31] MEDS: ALBUTEROL SO4 2.5/IPRATROPIUM 0.5 INH SOL 3 ML VIAL.NEB. NEB SCH ×4 (07:51→20:00)
[2022-07-31] MEDS ORDERED: POTASSIUM PHOSPHATE 30 MM in DEXTROSE 5%-WATER - 500 ML IVPB ONE (08:53)
[2022-07-31 09:53] LABS: HEMATOCRIT 18.2 % (35.4-49); MCH 27.8 pg (25.7-33.7); MCHC 33.9 g/dl (32.0-35.9); MEAN CELL VOLUME 82.2 fl (80-96); MEAN PLT VOLUME 8.8 fl (7.5-11.1); PLATELET COUNT 305 10^3/uL (134-434); RBC 2.22 M/mm3 (4.00-5.60); RDW 18.4 % (11.9-15.9); WHITE BLOOD COUNT 10.2 K/mm3 (4.0-10.0)
[2022-07-31] MEDS ORDERED: PANTOPRAZOLE SODIUM 40 MG VIAL IVPUSH SCH ×2 (10:00)
[2022-07-31 10:16] LABS: HEMOGLOBIN 6.2 GM/dL (11.7-16.9)
[2022-07-31] MEDS ORDERED: PANTOPRAZOLE SODIUM 40 MG VIAL IVPUSH ONE (10:18)
[2022-07-31] MEDS ORDERED: DEXTROSE 5%-LACTATED RINGERS 1,000 ML IV SCH (11:15)
[2022-07-31] MEDS: THIAMINE HCL 200 MG/2 ML VIAL IVPB SCH ×2 (11:43→15:31)
[2022-07-31] MEDS: risperiDONE 0.25 MG TABLET PO SCH ×2 (11:48→21:40)
[2022-07-31] MEDS: METOPROLOL TARTRATE 50 MG TABLET (FP) PO SCH ×2 (11:48→21:40)
[2022-07-31] MEDS: ASCORBIC ACID 500 MG TABLET (FP) PO SCH (11:49)
[2022-07-31] MEDS: PANTOPRAZOLE SODIUM 160 MG in SODIUM CHLORIDE 290 ML IVPB SCH (11:50)
[2022-07-31] MEDS: AMINO ACIDS/PROTEIN HYDROLYS 30 ML LIQUID.PKT PO SCH (11:50)
[2022-07-31] MEDS: FLUCONAZOLE 100 MG/NS 50 ML IVPB SCH (11:51)
[2022-07-31] MEDS: CHLORHEXIDINE GLUCONATE 0.12% 15ML CUP MM SCH ×2 (11:55→21:40)
[2022-07-31] MEDS: amLODIPine BESYLATE 5 MG TABLET (FP) PO SCH (11:55)
[2022-07-31] MEDS: ENALAPRIL MALEATE 10 MG TABLET PO SCH (11:56)
[2022-07-31] MEDS: ZINC OXIDE 20% TOPICAL OINTMENT 30 GM TUBE TP SCH ×2 (14:50→21:42)
[2022-07-31] MEDS ORDERED: DEXTROSE 5%-0.45% SALINE 1,000 ML IV SCH (17:00)
[2022-07-31 18:02] LABS: BASO % 0.7 % (0-2.0); EOS % 2.6 % (0-4.5); HEMATOCRIT 22.1 % (35.4-49); HEMOGLOBIN 7.4 GM/dL (11.7-16.9); LYMPH % 7.6 % (8-40); MCH 27.4 pg (25.7-33.7); MCHC 33.3 g/dl (32.0-35.9); MEAN CELL VOLUME 82.3 fl (80-96); MEAN PLT VOLUME 8.5 fl (7.5-11.1); MONO % 5.2 % (3.8-10.2); NEUT % 83.9 % (42.8-82.8); PLATELET COUNT 302 10^3/uL (134-434); RBC 2.68 M/mm3 (4.00-5.60); RDW 17.1 % (11.9-15.9); WHITE BLOOD COUNT 8.9 K/mm3 (4.0-10.0)
[2022-07-31 18:07] LABS: INR 1.26 (0.83-1.09); PROTHROMBIN TIME (PATIENT) 14.6 SEC (9.7-13.0)
[2022-07-31] MEDS: ATORVASTATIN CA 40 MG TABLET (FP) PO SCH (21:40)
[2022-08-01] MEDS: THIAMINE HCL 200 MG/2 ML VIAL IVPB SCH ×4 (00:02→16:25)
[2022-08-01] MEDS: AMPICILLIN NA/SULBACTAM NA 1.5 GM in SODIUM CHLORIDE 100 ML IVPB SCH ×6 (00:02→23:21)
[2022-08-01] MEDS: INSULIN SLIDING SCALE (NOVOLOG) 1 VIAL SQ SCH ×5 (01:02→23:16)
[2022-08-01] MEDS: PANTOPRAZOLE SODIUM 160 MG in SODIUM CHLORIDE 290 ML IVPB SCH (05:54)
[2022-08-01 07:09] LABS: BASO % 0.8 % (0-2.0); EOS % 3.1 % (0-4.5); HEMATOCRIT 24.7 % (35.4-49); HEMOGLOBIN 8.5 GM/dL (11.7-16.9); MCH 28.2 pg (25.7-33.7); MCHC 34.3 g/dl (32.0-35.9); MEAN CELL VOLUME 82.2 fl (80-96); MEAN PLT VOLUME 8.2 fl (7.5-11.1); MONO % 5.3 % (3.8-10.2); NEUT % 83.8 % (42.8-82.8); PLATELET COUNT 279 10^3/uL (134-434); RBC 3.01 M/mm3 (4.00-5.60); WHITE BLOOD COUNT 8.7 K/mm3 (4.0-10.0)
[2022-08-01 07:10] LABS: INR 1.24 (0.83-1.09); PROTHROMBIN TIME (PATIENT) 14.3 SEC (9.7-13.0)
[2022-08-01 07:12] LABS: ACTIVATED PTT 30.1 SECONDS (25.2-36.5)
[2022-08-01] MEDS: ALBUTEROL SO4 2.5/IPRATROPIUM 0.5 INH SOL 3 ML VIAL.NEB. NEB SCH ×4 (07:24→20:05)
[2022-08-01 07:30] LABS: POTASSIUM 3.9 mmol/L (3.5-5.1)
[2022-08-01 07:35] LABS: ALBUMIN 1.6 g/dl (3.4-5.0); CALCIUM 8.2 mg/dL (8.5-10.1)
[2022-08-01 07:36] LABS: BLOOD UREA NITROGEN 49.5 mg/dL (7-18); MAGNESIUM 1.8 mg/dL (1.8-2.4)
[2022-08-01 07:38] LABS: CREATININE 1.5 mg/dL (0.55-1.3); PHOSPHOROUS 3.4 mg/dL (2.5-4.9)
[2022-08-01 07:40] LABS: TOT PROT 4.5 g/dl (6.4-8.2)
[2022-08-01] MEDS: ZINC OXIDE 20% TOPICAL OINTMENT 30 GM TUBE TP SCH ×2 (09:40→21:17)
[2022-08-01] MEDS ORDERED: MAGNESIUM 1GM/D5W 100ML - 100 ML IVPB IVPB ONE (09:59)
[2022-08-01] MEDS: METOPROLOL TARTRATE 50 MG TABLET (FP) PO SCH (10:22)
[2022-08-01] MEDS: ASCORBIC ACID 500 MG TABLET (FP) PO SCH (10:23)
[2022-08-01] MEDS: risperiDONE 0.25 MG TABLET PO SCH ×2 (10:23→21:16)
[2022-08-01] MEDS ORDERED: METOPROLOL TARTRATE 5 MG/5 ML VIAL IVPUSH ONE (10:27)
[2022-08-01] MEDS: KCL 10 MEQ IVPB 10 MEQ/100 ML INFUS.BAG IVPB SCH ×2 (10:37→12:56)
[2022-08-01] MEDS: FLUCONAZOLE 100 MG/NS 50 ML IVPB SCH (11:26)
[2022-08-01] MEDS: CHLORHEXIDINE GLUCONATE 0.12% 15ML CUP MM SCH ×2 (17:10→21:17)
[2022-08-01] MEDS: POTASSIUM CHLORIDE 10 MEQ in DEXTROSE 5%-WATER - 1,000 ML IV SCH (17:26)
[2022-08-01] MEDS ORDERED: amLODIPine BESYLATE 5 MG TABLET (FP) GT SCH (18:06)
[2022-08-01] MEDS: ATORVASTATIN CA 40 MG TABLET (FP) PO SCH (21:16)
[2022-08-01] MEDS: METOPROLOL TARTRATE 50 MG TABLET (FP) GT SCH (21:16)
[2022-08-01] MEDS: PANTOPRAZOLE SODIUM 40 MG VIAL IVPUSH SCH (21:17)
[2022-08-01] MEDS: ASCORBIC ACID 500 MG/5 ML UNIT DOSE CUP GT SCH (21:17)
[2022-08-02] MEDS: THIAMINE HCL 200 MG/2 ML VIAL IVPB SCH ×3 (00:25→16:42)
[2022-08-02] MEDS: AMPICILLIN NA/SULBACTAM NA 1.5 GM in SODIUM CHLORIDE 100 ML IVPB SCH ×4 (06:25→23:26)
[2022-08-02] MEDS: INSULIN SLIDING SCALE (NOVOLOG) 1 VIAL SQ SCH ×4 (06:26→23:26)
[2022-08-02] MEDS: POTASSIUM CHLORIDE 10 MEQ in DEXTROSE 5%-WATER - 1,000 ML IV SCH ×2 (06:27→15:05)
[2022-08-02 07:07] LABS: HEMATOCRIT 24.1 % (35.4-49); HEMOGLOBIN 8.7 GM/dL (11.7-16.9); MCH 29.6 pg (25.7-33.7); MEAN CELL VOLUME 82.2 fl (80-96); MEAN PLT VOLUME 8.5 fl (7.5-11.1); PLATELET COUNT 246 10^3/uL (134-434); RBC 2.93 M/mm3 (4.00-5.60); RDW 16.2 % (11.9-15.9); WHITE BLOOD COUNT 8.7 K/mm3 (4.0-10.0)
[2022-08-02 07:30] LABS: POTASSIUM 3.7 mmol/L (3.5-5.1)
[2022-08-02 07:36] LABS: CALCIUM 7.9 mg/dL (8.5-10.1)
[2022-08-02 07:37] LABS: ALBUMIN 1.8 g/dl (3.4-5.0)
[2022-08-02 07:40] LABS: CREATININE 1.5 mg/dL (0.55-1.3); PHOSPHOROUS 2.4 mg/dL (2.5-4.9)
[2022-08-02 07:41] LABS: BILIRUBIN,TOTAL 0.5 mg/dL (0.2-1); TOT PROT 4.7 g/dl (6.4-8.2)
[2022-08-02] MEDS: ALBUTEROL SO4 2.5/IPRATROPIUM 0.5 INH SOL 3 ML VIAL.NEB. NEB SCH ×4 (08:05→21:02)
[2022-08-02] MEDS: FLUCONAZOLE 100 MG/NS 50 ML IVPB SCH (09:59)
[2022-08-02] MEDS: CHLORHEXIDINE GLUCONATE 0.12% 15ML CUP MM SCH ×2 (09:59→21:42)
[2022-08-02] MEDS: METOPROLOL TARTRATE 50 MG TABLET (FP) GT SCH ×2 (09:59→21:41)
[2022-08-02] MEDS: risperiDONE 0.25 MG TABLET PO SCH ×2 (09:59→21:41)
[2022-08-02] MEDS: ASCORBIC ACID 500 MG/5 ML UNIT DOSE CUP GT SCH (10:00)
[2022-08-02] MEDS: PANTOPRAZOLE SODIUM 40 MG VIAL IVPUSH SCH ×2 (10:00→21:42)
[2022-08-02] MEDS: ZINC OXIDE 20% TOPICAL OINTMENT 30 GM TUBE TP SCH ×2 (10:00→21:42)
[2022-08-02] MEDS: ATORVASTATIN CA 40 MG TABLET (FP) PO SCH (21:41)
[2022-08-02] MEDS: ENALAPRIL MALEATE 10 MG TABLET GT SCH (21:42)
[2022-08-02] MEDS ORDERED: NAPH,MB-DB/K PH,MBDB POWDER PACKET GT ONE (22:18)
[2022-08-03] MEDS: THIAMINE HCL 200 MG/2 ML VIAL IVPB SCH ×2 (00:48→09:17)
[2022-08-03] MEDS: AMPICILLIN NA/SULBACTAM NA 1.5 GM in SODIUM CHLORIDE 100 ML IVPB SCH ×3 (05:14→17:48)
[2022-08-03] MEDS: INSULIN SLIDING SCALE (NOVOLOG) 1 VIAL SQ SCH ×3 (05:25→17:58)
[2022-08-03] MEDS: POTASSIUM CHLORIDE 10 MEQ in DEXTROSE 5%-WATER - 1,000 ML IV SCH ×2 (05:52→23:00)
[2022-08-03 06:46] LABS: POTASSIUM 3.4 mmol/L (3.5-5.1)
[2022-08-03 06:49] LABS: CALCIUM 7.1 mg/dL (8.5-10.1)
[2022-08-03 06:50] LABS: ALBUMIN 1.6 g/dl (3.4-5.0); BLOOD UREA NITROGEN 29.1 mg/dL (7-18); MAGNESIUM 1.7 mg/dL (1.8-2.4)
[2022-08-03 06:53] LABS: CREATININE 1.4 mg/dL (0.55-1.3); PHOSPHOROUS 2.4 mg/dL (2.5-4.9)
[2022-08-03 06:54] LABS: BILIRUBIN,TOTAL 0.4 mg/dL (0.2-1)
[2022-08-03 06:55] LABS: TOT PROT 4.4 g/dl (6.4-8.2)
[2022-08-03] MEDS ORDERED: POTASSIUM CHLORIDE ORAL LIQUID 20 MEQ/15 ML PO ONE (06:55)
[2022-08-03 07:13] LABS: HEMATOCRIT 22.9 % (35.4-49); MCH 28.6 pg (25.7-33.7); MCHC 34.9 g/dl (32.0-35.9); MEAN CELL VOLUME 81.8 fl (80-96); PLATELET COUNT 229 10^3/uL (134-434); RDW 16.9 % (11.9-15.9); WHITE BLOOD COUNT 7.7 K/mm3 (4.0-10.0)
[2022-08-03] MEDS ORDERED: POTASSIUM CHLORIDE ORAL LIQUID 20 MEQ/15 ML GT ONE (07:30)
[2022-08-03] MEDS ORDERED: NAPH,MB-DB/K PH,MBDB POWDER PACKET GT ONE ×2 (07:30→12:15)
[2022-08-03] MEDS ORDERED: MAGNESIUM SULF 50% (8.12 MEQ/2 ML-1 GM VIAL) IVPB ONE (07:30)
[2022-08-03] MEDS: ALBUTEROL SO4 2.5/IPRATROPIUM 0.5 INH SOL 3 ML VIAL.NEB. NEB SCH ×4 (07:44→20:12)
[2022-08-03] MEDS: PANTOPRAZOLE SODIUM 40 MG VIAL IVPUSH SCH ×2 (08:59→21:37)
[2022-08-03] MEDS: METOPROLOL TARTRATE 50 MG TABLET (FP) GT SCH ×2 (09:00→21:37)
[2022-08-03] MEDS: risperiDONE 0.25 MG TABLET PO SCH ×2 (09:00→21:37)
[2022-08-03] MEDS: ASCORBIC ACID 500 MG/5 ML UNIT DOSE CUP GT SCH (09:00)
[2022-08-03] MEDS: AMINO ACIDS/PROTEIN HYDROLYS 30 ML LIQUID.PKT PO SCH (09:00)
[2022-08-03] MEDS: ENALAPRIL MALEATE 10 MG TABLET GT SCH ×2 (09:01→21:38)
[2022-08-03] MEDS: CHLORHEXIDINE GLUCONATE 0.12% 15ML CUP MM SCH ×2 (09:01→21:38)
[2022-08-03] MEDS: ZINC OXIDE 20% TOPICAL OINTMENT 30 GM TUBE TP SCH ×2 (09:03→22:15)
[2022-08-03] MEDS: FLUCONAZOLE 100 MG/NS 50 ML IVPB SCH (09:17)
[2022-08-03] MEDS ORDERED: ENOXAPARIN NA (PORCINE) 40 MG/0.4 ML DISP.SYRIN SQ SCH (10:00)
[2022-08-03] MEDS ORDERED: THIAMINE HCL 200 MG/2 ML VIAL IVPB SCH (10:00)
[2022-08-03 13:09] LABS: HEMATOCRIT 23.6 % (35.4-49); HEMOGLOBIN 8.3 GM/dL (11.7-16.9); MEAN CELL VOLUME 82.7 fl (80-96); PLATELET COUNT 210 10^3/uL (134-434); RBC 2.85 M/mm3 (4.00-5.60); RDW 16.8 % (11.9-15.9)
[2022-08-03] MEDS: KCL 10 MEQ IVPB 10 MEQ/100 ML INFUS.BAG IVPB SCH ×2 (14:05→17:48)
[2022-08-03 18:57] LABS: HEMATOCRIT 24.6 % (35.4-49); HEMOGLOBIN 8.4 GM/dL (11.7-16.9); MCH 28.1 pg (25.7-33.7); MCHC 34.2 g/dl (32.0-35.9); MEAN CELL VOLUME 82.2 fl (80-96); MEAN PLT VOLUME 7.6 fl (7.5-11.1); PLATELET COUNT 222 10^3/uL (134-434); RBC 2.99 M/mm3 (4.00-5.60); RDW 16.8 % (11.9-15.9); WHITE BLOOD COUNT 8.8 K/mm3 (4.0-10.0)
[2022-08-03] MEDS: ATORVASTATIN CA 40 MG TABLET (FP) PO SCH (21:37)
[2022-08-04] MEDS: INSULIN SLIDING SCALE (NOVOLOG) 1 VIAL SQ SCH ×5 (01:14→22:14)
[2022-08-04] MEDS: AMPICILLIN NA/SULBACTAM NA 1.5 GM in SODIUM CHLORIDE 100 ML IVPB SCH ×5 (01:17→23:35)
[2022-08-04] MEDS: ALBUTEROL SO4 2.5/IPRATROPIUM 0.5 INH SOL 3 ML VIAL.NEB. NEB SCH ×4 (07:15→20:31)
[2022-08-04 07:18] LABS: HEMATOCRIT 23.2 % (35.4-49); MCH 28.6 pg (25.7-33.7); MCHC 34.5 g/dl (32.0-35.9); MEAN CELL VOLUME 82.9 fl (80-96); MEAN PLT VOLUME 8.6 fl (7.5-11.1); PLATELET COUNT 219 10^3/uL (134-434); RDW 16.7 % (11.9-15.9)
[2022-08-04 07:21] LABS: POTASSIUM 4.1 mmol/L (3.5-5.1)
[2022-08-04 07:29] LABS: ALBUMIN 1.7 g/dl (3.4-5.0); CREATININE 1.4 mg/dL (0.55-1.3)
[2022-08-04 07:30] LABS: CALCIUM 7.5 mg/dL (8.5-10.1)
[2022-08-04 07:31] LABS: BILIRUBIN,TOTAL 0.4 mg/dL (0.2-1); BLOOD UREA NITROGEN 26.4 mg/dL (7-18); MAGNESIUM 1.8 mg/dL (1.8-2.4); TOT PROT 4.7 g/dl (6.4-8.2)
[2022-08-04 07:33] LABS: PHOSPHOROUS 2.7 mg/dL (2.5-4.9)
[2022-08-04] MEDS: POTASSIUM CHLORIDE 10 MEQ in DEXTROSE 5%-WATER - 1,000 ML IV SCH (08:42)
[2022-08-04] MEDS: AMINO ACIDS/PROTEIN HYDROLYS 30 ML LIQUID.PKT PO SCH (08:42)
[2022-08-04] MEDS ORDERED: NAPH,MB-DB/K PH,MBDB POWDER PACKET GT ONE (09:30)
[2022-08-04] MEDS ORDERED: MAGNESIUM 1GM/D5W 100ML - 100 ML IVPB IVPB ONE (09:30)
[2022-08-04] MEDS: METOPROLOL TARTRATE 50 MG TABLET (FP) GT SCH ×2 (09:36→21:30)
[2022-08-04] MEDS: PANTOPRAZOLE SODIUM 40 MG VIAL IVPUSH SCH ×2 (09:37→21:30)
[2022-08-04] MEDS: THIAMINE HCL 200 MG/2 ML VIAL IVPB SCH (09:37)
[2022-08-04] MEDS: risperiDONE 0.25 MG TABLET PO SCH ×2 (09:37→21:30)
[2022-08-04] MEDS: ENALAPRIL MALEATE 10 MG TABLET GT SCH ×2 (09:37→21:29)
[2022-08-04] MEDS: amLODIPine BESYLATE 10 MG TABLET (FP) GT SCH (09:40)
[2022-08-04] MEDS: ASCORBIC ACID 500 MG/5 ML UNIT DOSE CUP GT SCH (09:41)
[2022-08-04] MEDS: CHLORHEXIDINE GLUCONATE 0.12% 15ML CUP MM SCH ×2 (09:41→22:06)
[2022-08-04] MEDS: ZINC OXIDE 20% TOPICAL OINTMENT 30 GM TUBE TP SCH ×2 (09:41→22:10)
[2022-08-04] MEDS: ATORVASTATIN CA 40 MG TABLET (FP) PO SCH (21:30)
[2022-08-05] MEDS: INSULIN SLIDING SCALE (NOVOLOG) 1 VIAL SQ SCH ×4 (04:38→21:56)
[2022-08-05] MEDS: AMPICILLIN NA/SULBACTAM NA 1.5 GM in SODIUM CHLORIDE 100 ML IVPB SCH ×4 (05:24→23:27)
[2022-08-05 07:26] LABS: HEMATOCRIT 23.4 % (35.4-49); HEMOGLOBIN 8.1 GM/dL (11.7-16.9); MCH 28.8 pg (25.7-33.7); MCHC 34.8 g/dl (32.0-35.9); MEAN CELL VOLUME 82.8 fl (80-96); MEAN PLT VOLUME 8.5 fl (7.5-11.1); PLATELET COUNT 213 10^3/uL (134-434); RBC 2.83 M/mm3 (4.00-5.60); RDW 16.7 % (11.9-15.9); WHITE BLOOD COUNT 9.4 K/mm3 (4.0-10.0)
[2022-08-05 07:37] LABS: POTASSIUM 3.8 mmol/L (3.5-5.1)
[2022-08-05 07:42] LABS: ALBUMIN 1.7 g/dl (3.4-5.0); BLOOD UREA NITROGEN 23.6 mg/dL (7-18); CALCIUM 7.5 mg/dL (8.5-10.1); MAGNESIUM 1.8 mg/dL (1.8-2.4)
[2022-08-05 07:45] LABS: CREATININE 1.4 mg/dL (0.55-1.3); PHOSPHOROUS 3.5 mg/dL (2.5-4.9)
[2022-08-05 07:46] LABS: BILIRUBIN,TOTAL 0.6 mg/dL (0.2-1); TOT PROT 4.7 g/dl (6.4-8.2)
[2022-08-05] MEDS: ALBUTEROL SO4 2.5/IPRATROPIUM 0.5 INH SOL 3 ML VIAL.NEB. NEB SCH ×4 (08:31→19:41)
[2022-08-05] MEDS ORDERED: POTASSIUM CHLORIDE ORAL LIQUID 20 MEQ/15 ML PO ONE (09:08)
[2022-08-05] MEDS ORDERED: MAGNESIUM SULF 50% (8.12 MEQ/2 ML-1 GM VIAL) IVPB ONE (09:08)
[2022-08-05] MEDS: risperiDONE 0.25 MG TABLET PO SCH ×2 (09:09→21:55)
[2022-08-05] MEDS: amLODIPine BESYLATE 10 MG TABLET (FP) GT SCH (09:09)
[2022-08-05] MEDS: METOPROLOL TARTRATE 50 MG TABLET (FP) GT SCH ×2 (09:09→21:55)
[2022-08-05] MEDS: FINASTERIDE 5 MG TABLET (FP) GT SCH (09:10)
[2022-08-05] MEDS: PANTOPRAZOLE SODIUM 40 MG VIAL IVPUSH SCH ×2 (09:10→21:56)
[2022-08-05] MEDS: CHLORHEXIDINE GLUCONATE 0.12% 15ML CUP MM SCH ×2 (09:12→23:27)
[2022-08-05] MEDS: AMINO ACIDS/PROTEIN HYDROLYS 30 ML LIQUID.PKT PO SCH (09:12)
[2022-08-05] MEDS: ENALAPRIL MALEATE 10 MG TABLET GT SCH ×2 (09:12→21:55)
[2022-08-05] MEDS: ASCORBIC ACID 500 MG/5 ML UNIT DOSE CUP GT SCH (09:13)
[2022-08-05] MEDS: ZINC OXIDE 20% TOPICAL OINTMENT 30 GM TUBE TP SCH ×2 (09:13→21:55)
[2022-08-05] MEDS: THIAMINE HCL 200 MG/2 ML VIAL IVPB SCH (09:38)
[2022-08-05] MEDS ORDERED: PRAZOSIN HCL 1 MG CAPSULE PO SCH (10:00)
[2022-08-05] MEDS: POTASSIUM CHLORIDE 10 MEQ in AMINO ACIDS 4.25%/D5W 1,000 ML IV SCH (15:17)
[2022-08-05] MEDS: ATORVASTATIN CA 40 MG TABLET (FP) PO SCH (21:56)
[2022-08-06] MEDS: POTASSIUM CHLORIDE 10 MEQ in AMINO ACIDS 4.25%/D5W 1,000 ML IV SCH (01:15)
[2022-08-06] MEDS: INSULIN SLIDING SCALE (NOVOLOG) 1 VIAL SQ SCH ×4 (05:53→23:00)
[2022-08-06] MEDS: AMPICILLIN NA/SULBACTAM NA 1.5 GM in SODIUM CHLORIDE 100 ML IVPB SCH ×2 (05:54→12:20)
[2022-08-06] MEDS: ALBUTEROL SO4 2.5/IPRATROPIUM 0.5 INH SOL 3 ML VIAL.NEB. NEB SCH ×4 (07:57→19:51)
[2022-08-06] MEDS: METOPROLOL TARTRATE 50 MG TABLET (FP) GT SCH (09:14)
[2022-08-06] MEDS: amLODIPine BESYLATE 10 MG TABLET (FP) GT SCH (09:15)
[2022-08-06] MEDS: FINASTERIDE 5 MG TABLET (FP) GT SCH (09:16)
[2022-08-06] MEDS: PANTOPRAZOLE SODIUM 40 MG VIAL IVPUSH SCH ×2 (09:16→22:47)
[2022-08-06] MEDS: THIAMINE HCL 200 MG/2 ML VIAL IVPB SCH (09:16)
[2022-08-06] MEDS: risperiDONE 0.25 MG TABLET PO SCH ×2 (09:16→22:47)
[2022-08-06] MEDS: CHLORHEXIDINE GLUCONATE 0.12% 15ML CUP MM SCH ×2 (09:17→22:50)
[2022-08-06] MEDS: ENALAPRIL MALEATE 10 MG TABLET GT SCH ×2 (09:17→22:48)
[2022-08-06] MEDS: ASCORBIC ACID 500 MG/5 ML UNIT DOSE CUP GT SCH (09:17)
[2022-08-06] MEDS: ZINC OXIDE 20% TOPICAL OINTMENT 30 GM TUBE TP SCH ×2 (09:18→22:49)
[2022-08-06 09:33] LABS: HEMATOCRIT 23.7 % (35.4-49); MCH 28.2 pg (25.7-33.7); MCHC 33.9 g/dl (32.0-35.9); MEAN CELL VOLUME 83.3 fl (80-96); PLATELET COUNT 260 10^3/uL (134-434); RBC 2.85 M/mm3 (4.00-5.60); RDW 17.2 % (11.9-15.9); WHITE BLOOD COUNT 6.7 K/mm3 (4.0-10.0)
[2022-08-06 09:47] LABS: POTASSIUM 3.7 mmol/L (3.5-5.1)
[2022-08-06 10:01] LABS: CALCIUM 7.6 mg/dL (8.5-10.1)
[2022-08-06 10:04] LABS: ALBUMIN 1.7 g/dl (3.4-5.0); MAGNESIUM 1.8 mg/dL (1.8-2.4)
[2022-08-06 10:05] LABS: BLOOD UREA NITROGEN 23.4 mg/dL (7-18)
[2022-08-06 10:07] LABS: CREATININE 1.4 mg/dL (0.55-1.3); PHOSPHOROUS 3.3 mg/dL (2.5-4.9)
[2022-08-06 10:08] LABS: BILIRUBIN,TOTAL 0.8 mg/dL (0.2-1)
[2022-08-06 10:09] LABS: TOT PROT 4.6 g/dl (6.4-8.2)
[2022-08-06] MEDS ORDERED: POTASSIUM CHLORIDE ORAL LIQUID 20 MEQ/15 ML PO ONE (12:43)
[2022-08-06] MEDS ORDERED: MAGNESIUM SULF 50% (8.12 MEQ/2 ML-1 GM VIAL) IVPB ONE (12:44)
[2022-08-06] MEDS: ATORVASTATIN CA 40 MG TABLET (FP) PO SCH (22:47)
[2022-08-07] MEDS: INSULIN SLIDING SCALE (NOVOLOG) 1 VIAL SQ SCH ×4 (06:03→22:57)
[2022-08-07] MEDS: ALBUTEROL SO4 2.5/IPRATROPIUM 0.5 INH SOL 3 ML VIAL.NEB. NEB SCH ×2 (07:42→11:40)
[2022-08-07 09:05] LABS: HEMATOCRIT 21.6 % (35.4-49); HEMOGLOBIN 7.5 GM/dL (11.7-16.9); MCH 28.7 pg (25.7-33.7); MEAN CELL VOLUME 81.9 fl (80-96); MEAN PLT VOLUME 8.4 fl (7.5-11.1); PLATELET COUNT 280 10^3/uL (134-434); RBC 2.63 M/mm3 (4.00-5.60); RDW 17.7 % (11.9-15.9); WHITE BLOOD COUNT 5.3 K/mm3 (4.0-10.0)
[2022-08-07 09:07] LABS: CALCIUM 7.5 mg/dL (8.5-10.1)
[2022-08-07 09:08] LABS: ALBUMIN 1.6 g/dl (3.4-5.0); BLOOD UREA NITROGEN 19.7 mg/dL (7-18); MAGNESIUM 1.7 mg/dL (1.8-2.4)
[2022-08-07 09:11] LABS: CREATININE 1.3 mg/dL (0.55-1.3); PHOSPHOROUS 2.6 mg/dL (2.5-4.9)
[2022-08-07 09:12] LABS: BILIRUBIN,TOTAL 0.4 mg/dL (0.2-1); TOT PROT 4.5 g/dl (6.4-8.2)
[2022-08-07] MEDS: amLODIPine BESYLATE 10 MG TABLET (FP) GT SCH (10:01)
[2022-08-07] MEDS: PANTOPRAZOLE SODIUM 40 MG VIAL IVPUSH SCH ×2 (10:01→21:36)
[2022-08-07] MEDS: THIAMINE HCL 200 MG/2 ML VIAL IVPB SCH (10:01)
[2022-08-07] MEDS: FINASTERIDE 5 MG TABLET (FP) GT SCH (10:01)
[2022-08-07] MEDS: risperiDONE 0.25 MG TABLET PO SCH ×2 (10:01→21:35)
[2022-08-07] MEDS: CHLORHEXIDINE GLUCONATE 0.12% 15ML CUP MM SCH ×2 (10:02→21:36)
[2022-08-07] MEDS: ENALAPRIL MALEATE 10 MG TABLET GT SCH ×2 (10:02→21:36)
[2022-08-07] MEDS: ASCORBIC ACID 500 MG/5 ML UNIT DOSE CUP GT SCH (10:02)
[2022-08-07] MEDS: ZINC OXIDE 20% TOPICAL OINTMENT 30 GM TUBE TP SCH ×2 (10:03→21:36)
[2022-08-07] MEDS ORDERED: MAGNESIUM 2GM/50ML STERILE WATER IVPB IVPB ONE (10:58)
[2022-08-07] MEDS ORDERED: MAGNESIUM SULF 50% (8.12 MEQ/2 ML-1 GM VIAL) IVPB ONE (15:11)
[2022-08-07] MEDS: ATORVASTATIN CA 40 MG TABLET (FP) PO SCH (21:35)
[2022-08-07] MEDS: METOPROLOL TARTRATE 25 MG TABLET (FP) GT SCH (21:35)
[2022-08-08] MEDS: INSULIN SLIDING SCALE (NOVOLOG) 1 VIAL SQ SCH ×4 (04:52→22:51)
[2022-08-08 07:41] LABS: HEMATOCRIT 24.4 % (35.4-49); HEMOGLOBIN 8.4 GM/dL (11.7-16.9); MCH 28.2 pg (25.7-33.7); MCHC 34.4 g/dl (32.0-35.9); MEAN CELL VOLUME 82.1 fl (80-96); MEAN PLT VOLUME 7.7 fl (7.5-11.1); PLATELET COUNT 387 10^3/uL (134-434); RBC 2.97 M/mm3 (4.00-5.60); RDW 16.9 % (11.9-15.9); WHITE BLOOD COUNT 5.1 K/mm3 (4.0-10.0)
[2022-08-08 07:49] LABS: POTASSIUM 4.3 mmol/L (3.5-5.1)
[2022-08-08 08:03] LABS: BLOOD UREA NITROGEN 16.4 mg/dL (7-18)
[2022-08-08 08:06] LABS: CREATININE 1.2 mg/dL (0.55-1.3)
[2022-08-08 08:08] LABS: ALBUMIN 1.8 g/dl (3.4-5.0); BILIRUBIN,TOTAL 0.4 mg/dL (0.2-1); CALCIUM 8.2 mg/dL (8.5-10.1)
[2022-08-08 08:09] LABS: MAGNESIUM 1.7 mg/dL (1.8-2.4)
[2022-08-08 08:13] LABS: PHOSPHOROUS 2.8 mg/dL (2.5-4.9)
[2022-08-08] MEDS ORDERED: LORazepam 2 MG/ML SDV VIAL IVPUSH PRN (08:58)
[2022-08-08] MEDS ORDERED: MAGNESIUM 2GM/50ML STERILE WATER IVPB IVPB ONE (09:45)
[2022-08-08 11:27] LABS: BF GLUCOSE (CSF ONLY) 102 mg/dL (40-70)
[2022-08-08] MEDS: CHLORHEXIDINE GLUCONATE 0.12% 15ML CUP MM SCH ×2 (11:27→22:46)
[2022-08-08] MEDS: FINASTERIDE 5 MG TABLET (FP) GT SCH (11:27)
[2022-08-08] MEDS: amLODIPine BESYLATE 10 MG TABLET (FP) GT SCH (11:28)
[2022-08-08] MEDS: METOPROLOL TARTRATE 25 MG TABLET (FP) GT SCH ×2 (11:28→22:46)
[2022-08-08] MEDS: ASCORBIC ACID 500 MG/5 ML UNIT DOSE CUP GT SCH (11:28)
[2022-08-08] MEDS: risperiDONE 0.25 MG TABLET PO SCH ×2 (11:28→22:46)
[2022-08-08] MEDS: THIAMINE HCL 200 MG/2 ML VIAL IVPB SCH (11:29)
[2022-08-08] MEDS: ENALAPRIL MALEATE 10 MG TABLET GT SCH ×2 (11:29→22:50)
[2022-08-08 11:34] LABS: CSF APPEARANCE CLEAR (CLEAR); CSF COLOR COLORLESS (COLORLESS); CSF WBC 0 mm3 (0-5)
[2022-08-08] MEDS: PANTOPRAZOLE SODIUM 40 MG VIAL IVPUSH SCH ×2 (11:40→22:47)
[2022-08-08] MEDS ORDERED: ENOXAPARIN NA (PORCINE) 40 MG/0.4 ML DISP.SYRIN SQ SCH (14:15)
[2022-08-08] MEDS ORDERED: APIXABAN 5 MG TABLET PO SCH (22:00)
[2022-08-08] MEDS: APIXABAN 5 MG TABLET GT SCH (22:46)
[2022-08-08] MEDS: ATORVASTATIN CA 40 MG TABLET (FP) PO SCH (22:47)
[2022-08-08] MEDS: ZINC OXIDE 20% TOPICAL OINTMENT 30 GM TUBE TP SCH ×2 (22:48)
[2022-08-09] MEDS: INSULIN SLIDING SCALE (NOVOLOG) 1 VIAL SQ SCH ×4 (06:27→22:30)
[2022-08-09 08:30] LABS: HEMOGLOBIN 8.6 GM/dL (11.7-16.9); MCH 28.3 pg (25.7-33.7); MCHC 34.3 g/dl (32.0-35.9); MEAN CELL VOLUME 82.4 fl (80-96); MEAN PLT VOLUME 7.6 fl (7.5-11.1); PLATELET COUNT 487 10^3/uL (134-434); RBC 3.03 M/mm3 (4.00-5.60); RDW 17.1 % (11.9-15.9); WHITE BLOOD COUNT 6.1 K/mm3 (4.0-10.0)
[2022-08-09 08:47] LABS: POTASSIUM 3.9 mmol/L (3.5-5.1)
[2022-08-09 08:51] LABS: BLOOD UREA NITROGEN 14.8 mg/dL (7-18); MAGNESIUM 2.2 mg/dL (1.8-2.4)
[2022-08-09 08:54] LABS: CREATININE 1.3 mg/dL (0.55-1.3); PHOSPHOROUS 2.9 mg/dL (2.5-4.9)
[2022-08-09 08:55] LABS: TOT PROT 5.1 g/dl (6.4-8.2)
[2022-08-09 08:57] LABS: BILIRUBIN,TOTAL 0.6 mg/dL (0.2-1)
[2022-08-09] MEDS: METOPROLOL TARTRATE 25 MG TABLET (FP) GT SCH ×2 (09:30→21:39)
[2022-08-09] MEDS: APIXABAN 5 MG TABLET GT SCH ×2 (09:30→21:40)
[2022-08-09] MEDS: PANTOPRAZOLE SODIUM 40 MG VIAL IVPUSH SCH ×2 (09:31→21:40)
[2022-08-09] MEDS: risperiDONE 0.25 MG TABLET PO SCH ×2 (09:31→21:39)
[2022-08-09] MEDS: THIAMINE HCL 200 MG/2 ML VIAL IVPB SCH (09:31)
[2022-08-09] MEDS: FINASTERIDE 5 MG TABLET (FP) GT SCH (09:31)
[2022-08-09] MEDS: amLODIPine BESYLATE 10 MG TABLET (FP) GT SCH (09:31)
[2022-08-09] MEDS: ENALAPRIL MALEATE 10 MG TABLET GT SCH ×2 (09:32→21:40)
[2022-08-09] MEDS: CHLORHEXIDINE GLUCONATE 0.12% 15ML CUP MM SCH ×2 (09:32→21:40)
[2022-08-09] MEDS: ZINC OXIDE 20% TOPICAL OINTMENT 30 GM TUBE TP SCH ×2 (10:25→21:41)
[2022-08-09] MEDS: ASCORBIC ACID 500 MG/5 ML UNIT DOSE CUP GT SCH (17:44)
[2022-08-09] MEDS: ATORVASTATIN CA 40 MG TABLET (FP) PO SCH (21:39)
[2022-08-10] MEDS: INSULIN SLIDING SCALE (NOVOLOG) 1 VIAL SQ SCH ×4 (06:09→22:27)
[2022-08-10] MEDS: amLODIPine BESYLATE 10 MG TABLET (FP) GT SCH (09:45)
[2022-08-10] MEDS: FINASTERIDE 5 MG TABLET (FP) GT SCH (09:45)
[2022-08-10] MEDS: METOPROLOL TARTRATE 25 MG TABLET (FP) GT SCH ×2 (09:45→21:23)
[2022-08-10] MEDS: THIAMINE HCL 200 MG/2 ML VIAL IVPB SCH (09:46)
[2022-08-10] MEDS: APIXABAN 5 MG TABLET GT SCH ×2 (09:46→21:23)
[2022-08-10] MEDS: risperiDONE 0.25 MG TABLET PO SCH ×2 (09:46→21:23)
[2022-08-10] MEDS: ENALAPRIL MALEATE 10 MG TABLET GT SCH ×2 (09:47→21:26)
[2022-08-10] MEDS: CHLORHEXIDINE GLUCONATE 0.12% 15ML CUP MM SCH ×2 (09:47→21:25)
[2022-08-10] MEDS: ASCORBIC ACID 500 MG/5 ML UNIT DOSE CUP GT SCH (09:47)
[2022-08-10] MEDS: ZINC OXIDE 20% TOPICAL OINTMENT 30 GM TUBE TP SCH ×2 (11:15→21:26)
[2022-08-10] MEDS: PANTOPRAZOLE SODIUM 40 MG VIAL IVPUSH SCH ×2 (11:15→21:26)
[2022-08-10] MEDS: ATORVASTATIN CA 40 MG TABLET (FP) PO SCH (21:24)
[2022-08-11] MEDS: INSULIN SLIDING SCALE (NOVOLOG) 1 VIAL SQ SCH ×4 (04:51→22:12)
[2022-08-11 07:40] LABS: BASO % 0.6 % (0-2.0); HEMATOCRIT 24.2 % (35.4-49); HEMOGLOBIN 8.5 GM/dL (11.7-16.9); MCH 28.8 pg (25.7-33.7); MCHC 35.3 g/dl (32.0-35.9); MEAN CELL VOLUME 81.8 fl (80-96); MEAN PLT VOLUME 7.7 fl (7.5-11.1); MONO % 10.3 % (3.8-10.2); NEUT % 66.1 % (42.8-82.8); PLATELET COUNT 575 10^3/uL (134-434); RBC 2.96 M/mm3 (4.00-5.60); RDW 16.7 % (11.9-15.9); WHITE BLOOD COUNT 6.6 K/mm3 (4.0-10.0)
[2022-08-11 07:41] LABS: INR 1.52 (0.83-1.09); PROTHROMBIN TIME (PATIENT) 17.6 SEC (9.7-13.0)
[2022-08-11 07:44] LABS: ACTIVATED PTT 34.2 SECONDS (25.2-36.5)
[2022-08-11 07:52] LABS: POTASSIUM 3.8 mmol/L (3.5-5.1)
[2022-08-11 08:01] LABS: ALBUMIN 1.9 g/dl (3.4-5.0); BLOOD UREA NITROGEN 15.3 mg/dL (7-18); MAGNESIUM 1.7 mg/dL (1.8-2.4)
[2022-08-11 08:04] LABS: CREATININE 1.3 mg/dL (0.55-1.3); PHOSPHOROUS 3.2 mg/dL (2.5-4.9)
[2022-08-11 08:05] LABS: BILIRUBIN,TOTAL 0.5 mg/dL (0.2-1); TOT PROT 4.8 g/dl (6.4-8.2)
[2022-08-11] MEDS: CHLORHEXIDINE GLUCONATE 0.12% 15ML CUP MM SCH ×2 (10:13→22:03)
[2022-08-11] MEDS: ENALAPRIL MALEATE 10 MG TABLET GT SCH ×2 (10:13→22:03)
[2022-08-11] MEDS: APIXABAN 5 MG TABLET GT SCH ×2 (10:14→22:03)
[2022-08-11] MEDS: METOPROLOL TARTRATE 25 MG TABLET (FP) GT SCH ×2 (10:14→22:03)
[2022-08-11] MEDS: PANTOPRAZOLE SODIUM 40 MG VIAL IVPUSH SCH (10:16)
[2022-08-11] MEDS: risperiDONE 0.25 MG TABLET PO SCH (10:16)
[2022-08-11] MEDS: FINASTERIDE 5 MG TABLET (FP) GT SCH (10:16)
[2022-08-11] MEDS: ASCORBIC ACID 500 MG/5 ML UNIT DOSE CUP GT SCH (10:17)
[2022-08-11] MEDS: amLODIPine BESYLATE 10 MG TABLET (FP) GT SCH (10:17)
[2022-08-11] MEDS: THIAMINE HCL 200 MG/2 ML VIAL IVPB SCH (10:21)
[2022-08-11] MEDS ORDERED: PANTOPRAZOLE SOD 40 MG SUSPENSION PACKET PO SCH (12:00)
[2022-08-11] MEDS ORDERED: INSULIN SLIDING SCALE (NOVOLOG) 1 VIAL SQ ONE (12:06)
[2022-08-11] MEDS: FAMOTIDINE 40 MG/5 ML ORAL SUSPENSION GT SCH (15:10)
[2022-08-11] MEDS ORDERED: POTASSIUM CHLORIDE ORAL LIQUID 20 MEQ/15 ML GT ONE (15:16)
[2022-08-11] MEDS ORDERED: MAGNESIUM SULF 50% (8.12 MEQ/2 ML-1 GM VIAL) IVPB ONE (15:16)
[2022-08-11] MEDS: ZINC OXIDE 20% TOPICAL OINTMENT 30 GM TUBE TP SCH ×2 (16:05→22:13)
[2022-08-11] MEDS: risperiDONE 0.25 MG TABLET GT SCH (22:03)
[2022-08-11] MEDS: ATORVASTATIN CA 40 MG TABLET (FP) GT SCH (22:03)
[2022-08-12] MEDS: INSULIN SLIDING SCALE (NOVOLOG) 1 VIAL SQ SCH ×4 (04:42→21:56)
[2022-08-12 08:41] LABS: HEMATOCRIT 25.2 % (35.4-49); HEMOGLOBIN 8.6 GM/dL (11.7-16.9); MEAN CELL VOLUME 82.4 fl (80-96); MEAN PLT VOLUME 6.9 fl (7.5-11.1); PLATELET COUNT 731 10^3/uL (134-434); RBC 3.06 M/mm3 (4.00-5.60); RDW 17.2 % (11.9-15.9); WHITE BLOOD COUNT 7.1 K/mm3 (4.0-10.0)
[2022-08-12 09:00] LABS: POTASSIUM 3.8 mmol/L (3.5-5.1)
[2022-08-12 09:06] LABS: CALCIUM 8.4 mg/dL (8.5-10.1)
[2022-08-12 09:07] LABS: BLOOD UREA NITROGEN 16.8 mg/dL (7-18); MAGNESIUM 2.1 mg/dL (1.8-2.4)
[2022-08-12 09:10] LABS: CREATININE 1.3 mg/dL (0.55-1.3); PHOSPHOROUS 2.9 mg/dL (2.5-4.9)
[2022-08-12 09:11] LABS: BILIRUBIN,TOTAL 0.5 mg/dL (0.2-1)
[2022-08-12 09:12] LABS: TOT PROT 5.2 g/dl (6.4-8.2)
[2022-08-12] MEDS: FINASTERIDE 5 MG TABLET (FP) GT SCH (10:14)
[2022-08-12] MEDS: amLODIPine BESYLATE 10 MG TABLET (FP) GT SCH (10:14)
[2022-08-12] MEDS: METOPROLOL TARTRATE 25 MG TABLET (FP) GT SCH ×2 (10:15→21:43)
[2022-08-12] MEDS: THIAMINE HCL 200 MG/2 ML VIAL IVPB SCH (10:15)
[2022-08-12] MEDS: APIXABAN 5 MG TABLET GT SCH ×2 (10:15→21:43)
[2022-08-12] MEDS: risperiDONE 0.25 MG TABLET GT SCH (10:15)
[2022-08-12] MEDS: ENALAPRIL MALEATE 10 MG TABLET GT SCH ×2 (10:16→21:43)
[2022-08-12] MEDS: CHLORHEXIDINE GLUCONATE 0.12% 15ML CUP MM SCH ×2 (10:16→21:43)
[2022-08-12] MEDS: ASCORBIC ACID 500 MG/5 ML UNIT DOSE CUP GT SCH (10:20)
[2022-08-12] MEDS: ZINC OXIDE 20% TOPICAL OINTMENT 30 GM TUBE TP SCH ×2 (10:23→21:43)
[2022-08-12] MEDS: FAMOTIDINE 40 MG/5 ML ORAL SUSPENSION GT SCH (11:31)
[2022-08-12] MEDS: risperiDONE 0.5 MG TABLET GT SCH (21:43)
[2022-08-12] MEDS: ATORVASTATIN CA 40 MG TABLET (FP) GT SCH (21:43)
[2022-08-12] MEDS ORDERED: OLANZapine 2.5 MG TABLET PO SCH (22:00)
[2022-08-13] MEDS: INSULIN SLIDING SCALE (NOVOLOG) 1 VIAL SQ SCH ×4 (04:02→22:31)
[2022-08-13 06:32] LABS: HEMATOCRIT 24.5 % (35.4-49); HEMOGLOBIN 8.9 GM/dL (11.7-16.9); MCH 29.7 pg (25.7-33.7); MCHC 36.1 g/dl (32.0-35.9); MEAN CELL VOLUME 82.2 fl (80-96); MEAN PLT VOLUME 7.3 fl (7.5-11.1); PLATELET COUNT 755 10^3/uL (134-434); RBC 2.98 M/mm3 (4.00-5.60); RDW 16.9 % (11.9-15.9); WHITE BLOOD COUNT 8.9 K/mm3 (4.0-10.0)
[2022-08-13 06:41] LABS: POTASSIUM 3.6 mmol/L (3.5-5.1)
[2022-08-13 06:46] LABS: CALCIUM 8.1 mg/dL (8.5-10.1)
[2022-08-13 06:47] LABS: BLOOD UREA NITROGEN 16.2 mg/dL (7-18)
[2022-08-13 06:48] LABS: MAGNESIUM 1.8 mg/dL (1.8-2.4)
[2022-08-13 06:50] LABS: CREATININE 1.3 mg/dL (0.55-1.3); PHOSPHOROUS 2.8 mg/dL (2.5-4.9)
[2022-08-13 06:52] LABS: BILIRUBIN,TOTAL 0.3 mg/dL (0.2-1)
[2022-08-13] MEDS ORDERED: MAGNESIUM SULF 50% (8.12 MEQ/2 ML-1 GM VIAL) IVPB ONE (08:18)
[2022-08-13] MEDS ORDERED: POTASSIUM CHLORIDE ORAL LIQUID 20 MEQ/15 ML GT ONE (08:18)
[2022-08-13] MEDS: amLODIPine BESYLATE 10 MG TABLET (FP) GT SCH (09:33)
[2022-08-13] MEDS: METOPROLOL TARTRATE 25 MG TABLET (FP) GT SCH ×2 (09:33→21:13)
[2022-08-13] MEDS: risperiDONE 0.5 MG TABLET GT SCH ×2 (09:33→21:13)
[2022-08-13] MEDS: FINASTERIDE 5 MG TABLET (FP) GT SCH (09:34)
[2022-08-13] MEDS: APIXABAN 5 MG TABLET GT SCH ×2 (09:34→21:13)
[2022-08-13] MEDS: ASCORBIC ACID 500 MG/5 ML UNIT DOSE CUP GT SCH (09:35)
[2022-08-13] MEDS: FAMOTIDINE 40 MG/5 ML ORAL SUSPENSION GT SCH (09:35)
[2022-08-13] MEDS: CHLORHEXIDINE GLUCONATE 0.12% 15ML CUP MM SCH ×2 (09:35→21:14)
[2022-08-13] MEDS: ENALAPRIL MALEATE 10 MG TABLET GT SCH ×2 (09:35→21:14)
[2022-08-13] MEDS: ZINC OXIDE 20% TOPICAL OINTMENT 30 GM TUBE TP SCH ×2 (09:39→21:14)
[2022-08-13] MEDS: THIAMINE HCL 200 MG/2 ML VIAL IVPB SCH (09:51)
[2022-08-13] MEDS: DOXAZOSIN MESYLATE 1 MG TABLET GT SCH (15:27)
[2022-08-13] MEDS: ATORVASTATIN CA 40 MG TABLET (FP) GT SCH (21:14)
[2022-08-14] MEDS: INSULIN SLIDING SCALE (NOVOLOG) 1 VIAL SQ SCH ×2 (05:55→11:30)
[2022-08-14 06:23] LABS: HEMATOCRIT 25.3 % (35.4-49); MCH 29.1 pg (25.7-33.7); MCHC 35.5 g/dl (32.0-35.9); MEAN CELL VOLUME 82.1 fl (80-96); MEAN PLT VOLUME 7.3 fl (7.5-11.1); PLATELET COUNT 794 10^3/uL (134-434); RBC 3.08 M/mm3 (4.00-5.60); RDW 16.7 % (11.9-15.9); WHITE BLOOD COUNT 7.7 K/mm3 (4.0-10.0)
[2022-08-14 07:32] LABS: ALBUMIN 2.1 g/dl (3.4-5.0); BILIRUBIN,TOTAL 0.3 mg/dL (0.2-1); BLOOD UREA NITROGEN 17.2 mg/dL (7-18); CALCIUM 8.5 mg/dL (8.5-10.1); CREATININE 1.3 mg/dL (0.55-1.3); MAGNESIUM 1.8 mg/dL (1.8-2.4); PHOSPHOROUS 3.2 mg/dL (2.5-4.9); POTASSIUM 3.9 mmol/L (3.5-5.1); TOT PROT 5.3 g/dl (6.4-8.2)
[2022-08-14] MEDS ORDERED: MAGNESIUM SULF 50% (8.12 MEQ/2 ML-1 GM VIAL) IVPB ONE (07:44)
[2022-08-14 08:59] VITALS: BP 127/59; PULSE 71; RESP 18; TEMP 97.5
[2022-08-14] MEDS: amLODIPine BESYLATE 10 MG TABLET (FP) GT SCH (09:49)
[2022-08-14] MEDS: risperiDONE 0.5 MG TABLET GT SCH (09:50)
[2022-08-14] MEDS: FINASTERIDE 5 MG TABLET (FP) GT SCH (09:50)
[2022-08-14] MEDS: APIXABAN 5 MG TABLET GT SCH (09:50)
[2022-08-14] MEDS: METOPROLOL TARTRATE 25 MG TABLET (FP) GT SCH (09:51)
[2022-08-14] MEDS: ASCORBIC ACID 500 MG/5 ML UNIT DOSE CUP GT SCH (09:52)
[2022-08-14] MEDS: CHLORHEXIDINE GLUCONATE 0.12% 15ML CUP MM SCH (09:53)
[2022-08-14] MEDS: ENALAPRIL MALEATE 10 MG TABLET GT SCH (09:53)
[2022-08-14] MEDS: FAMOTIDINE 40 MG/5 ML ORAL SUSPENSION GT SCH (09:54)
[2022-08-14] MEDS: DOXAZOSIN MESYLATE 1 MG TABLET GT SCH (09:57)
[2022-08-14] MEDS: ZINC OXIDE 20% TOPICAL OINTMENT 30 GM TUBE TP SCH (09:58)
[2022-08-14] MEDS ORDERED: INSULIN SLIDING SCALE (NOVOLOG) 1 VIAL SQ ONE (11:42)
== END 2022-08-14 12:18 | DRG 177 ==
LOC: JER 13:58 → JERBED 17:45 → JICU 19:06 → J4W 07-07 15:07 → JICU 07-14 16:35 → J4W 07-18 13:31 → J4S 07-18 17:05
PROVIDERS: ADMIT Internal Medicine Pulmonary Disease; ATTEND Internal Medicine
PROC: 009U3ZZ Drainage of Spinal Canal, Percutaneous Approach (ICD-10-PCS; principal; 2022-07-10)
PROC: 0DH63UZ Insertion of Feeding Device into Stomach, Percutaneous Approach (ICD-10-PCS; 2022-07-28)
PROC: 009U3ZZ Drainage of Spinal Canal, Percutaneous Approach (ICD-10-PCS; 2022-07-31)
PROC: 30233N1 Transfusion of Nonautologous Red Blood Cells into Peripheral Vein, Percutaneous Approach (ICD-10-PCS; 2022-07-31)
DX: J69.0 Pneumonitis due to inhalation of food and vomit (principal); A41.89 Other specified sepsis; G93.41 Metabolic encephalopathy; J96.01 Acute respiratory failure with hypoxia; E43 Unspecified severe protein-calorie malnutrition; E87.1 Hypo-osmolality and hyponatremia; J98.11 Atelectasis; I47.29 Other ventricular tachycardia; K92.2 Gastrointestinal hemorrhage, unspecified; E87.0 Hyperosmolality and hypernatremia; N39.0 Urinary tract infection, site not specified; R41.82 Altered mental status, unspecified; J44.9 Chronic obstructive pulmonary disease, unspecified; N40.0 Benign prostatic hyperplasia without lower urinary tract symptoms; M06.9 Rheumatoid arthritis, unspecified; D35.02 Benign neoplasm of left adrenal gland; I12.9 Hypertensive chronic kidney disease with stage 1 through stage 4 chronic kidney disease, or unspecified chronic kidney disease; E11.22 Type 2 diabetes mellitus with diabetic chronic kidney disease; N18.30 Chronic kidney disease, stage 3 unspecified; K20.90 Esophagitis, unspecified without bleeding; E11.65 Type 2 diabetes mellitus with hyperglycemia; E86.1 Hypovolemia; E78.5 Hyperlipidemia, unspecified; D64.9 Anemia, unspecified; I48.0 Paroxysmal atrial fibrillation; R29.6 Repeated falls; K80.20 Calculus of gallbladder without cholecystitis without obstruction; F07.81 Postconcussional syndrome; R62.7 Adult failure to thrive; R33.9 Retention of urine, unspecified; R47.1 Dysarthria and anarthria; D72.829 Elevated white blood cell count, unspecified; Z68.23 Body mass index [BMI] 23.0-23.9, adult; B95.2 Enterococcus as the cause of diseases classified elsewhere
CPT/HCPCS: 0241U-QW; 36415; 36430; 36600; 43752; 49440; 49465; 62272; 70450-TC; 70551-TC; 71045-TC-FY; 71046-TC-FY; 73521-TC-FY; 74018-TC-FY; 74176-TC; 80048; 80053; 80307; 81003; 82010; 82042; 82140; 82436; 82570; 82607; 82746; 82803; 82945; 82962; 83036; 83516; 83520; 83605; 83735; 83880; 83930; 83935; 84100; 84133; 84157; 84166; 84300; 84439; 84443; 84478; 85025; 85027; 85610; 85651; 85730; 86038; 86140; 86256; 86480; 86592; 86694; 86735; 86765; 86780; 86787; 86788; 86789; 86850; 86900; 86901; 86922; 87040; 87070; 87086; 87116; 87186; 87205; 87206; 87389; 87529; 87556; 87899; 93005; 93010; 93306-TC; 94640; 97116-GP; 97162-GP; 99291; C9803-CS; J1644; P9058; U0003; U0005

== ENCOUNTER 2022-08-14 17:17 | Inpatient (IN) | payer OTHER ==
[2022-08-14 19:03] LABS: EOS % 2.4 % (0-4.5); HEMATOCRIT 26.6 % (35.4-49); HEMOGLOBIN 8.8 GM/dL (11.7-16.9); LYMPH % 13.9 % (8-40); MCH 27.4 pg (25.7-33.7); MCHC 33.1 g/dl (32.0-35.9); MEAN CELL VOLUME 82.8 fl (80-96); MONO % 8.3 % (3.8-10.2); NEUT % 74.4 % (42.8-82.8); PLATELET COUNT 865 10^3/uL (134-434); RBC 3.21 M/mm3 (4.00-5.60); RDW 17.1 % (11.9-15.9); WHITE BLOOD COUNT 9.5 K/mm3 (4.0-10.0)
[2022-08-14 19:07] LABS: EPI CELLS 3 /uL (0-25.1); HYALINE CASTS 5 /uL (0-3.1); URINE APPEARANCE CLOUDY; URINE BACTERIA 43 /uL (0-1359); URINE BILIRUBIN NEGATIVE (NEGATIVE); URINE COLOR YELLOW; URINE GLUCOSE (UA) NEGATIVE (NEGATIVE); URINE KETONE NEGATIVE (NEGATIVE); URINE LEUK ESTERASE 2+ (NEGATIVE); URINE NITRITE NEGATIVE (NEGATIVE); URINE PROTEIN 2+ (NEGATIVE); URINE RBC 45 /uL (0-23.9); URINE UROBILINOGEN 0.2 mg/dL (0.2-1.0); URINE WBC 843 /uL (0-25.8)
[2022-08-14 19:13] LABS: INR 1.51 (0.83-1.09); PROTHROMBIN TIME (PATIENT) 17.5 SEC (9.7-13.0)
[2022-08-14 19:21] LABS: POTASSIUM 4.5 mmol/L (3.5-5.1)
[2022-08-14 19:23] LABS: BLOOD UREA NITROGEN 17.5 mg/dL (7-18); CALCIUM 8.5 mg/dL (8.5-10.1); MAGNESIUM 2.3 mg/dL (1.8-2.4)
[2022-08-14 19:24] LABS: ALBUMIN 2.2 g/dl (3.4-5.0)
[2022-08-14 19:26] LABS: CREATININE 1.2 mg/dL (0.55-1.3)
[2022-08-14 19:28] LABS: BILIRUBIN,TOTAL 0.3 mg/dL (0.2-1); TOT PROT 5.4 g/dl (6.4-8.2)
[2022-08-14] MEDS ORDERED: HALOPERIDOL LACTATE 5 MG/ML IM PRN (19:42)
[2022-08-14] MEDS ORDERED: MEROPENEM 1 GM in DEXTROSE 5%-WATER 100 ML IVPB ONE (21:52)
[2022-08-14] MEDS ORDERED: MEROPENEM 1 GM VIAL (RESTRICTED TO ID) IVPB ONE (22:19)
[2022-08-14] MEDS ORDERED: SODIUM CHLORIDE 0.9% 500 ML INFUS.BAG IV ONE (22:26)
[2022-08-15 06:49] VITALS: BMI 22.4
[2022-08-15] MEDS ORDERED: MEROPENEM 1 GM in DEXTROSE 5%-WATER 100 ML IVPB SCH ×2 (07:15→10:00)
[2022-08-15] MEDS: INSULIN SLIDING SCALE (NOVOLOG) 1 VIAL SQ SCH ×3 (07:56→18:59)
[2022-08-15 08:11] LABS: BASO % 0.6 % (0-2.0); EOS % 2.5 % (0-4.5); HEMATOCRIT 26.4 % (35.4-49); HEMOGLOBIN 9.2 GM/dL (11.7-16.9); LYMPH % 19.1 % (8-40); MCH 28.8 pg (25.7-33.7); MCHC 34.8 g/dl (32.0-35.9); MEAN CELL VOLUME 82.8 fl (80-96); MEAN PLT VOLUME 7.6 fl (7.5-11.1); MONO % 10.2 % (3.8-10.2); NEUT % 67.6 % (42.8-82.8); PLATELET COUNT 852 10^3/uL (134-434); RBC 3.18 M/mm3 (4.00-5.60); WHITE BLOOD COUNT 8.5 K/mm3 (4.0-10.0)
[2022-08-15 08:46] LABS: POTASSIUM 4.5 mmol/L (3.5-5.1)
[2022-08-15 08:47] LABS: CALCIUM 8.3 mg/dL (8.5-10.1)
[2022-08-15 08:48] LABS: BLOOD UREA NITROGEN 16.7 mg/dL (7-18)
[2022-08-15 08:51] LABS: CREATININE 1.2 mg/dL (0.55-1.3)
[2022-08-15] MEDS ORDERED: FAMOTIDINE 40 MG/5 ML ORAL SUSPENSION GT SCH (10:00)
[2022-08-15] MEDS: FINASTERIDE 5 MG TABLET (FP) GT SCH (10:21)
[2022-08-15] MEDS: LISINOPRIL 5 MG TABLET GT SCH (10:21)
[2022-08-15] MEDS: APIXABAN 5 MG TABLET GT SCH ×2 (10:21→21:25)
[2022-08-15] MEDS: METOPROLOL TARTRATE 25 MG TABLET (FP) GT SCH ×2 (10:21→21:25)
[2022-08-15] MEDS: POLYETHYLENE GLYCOL (HEALTHYLAX) 3350 17 GM PACKET GT SCH (10:21)
[2022-08-15] MEDS: risperiDONE 0.5 MG TABLET GT SCH ×2 (10:21→21:25)
[2022-08-15] MEDS: FAMOTIDINE 20 MG/2.5 ML ORAL LIQUID GT SCH (10:22)
[2022-08-15] MEDS: ZINC OXIDE 20% TOPICAL OINTMENT 30 GM TUBE TP SCH ×2 (10:22→21:40)
[2022-08-15] MEDS: SENNOSIDES 8.8 MG/5 ML SYRUP GT SCH (10:22)
[2022-08-15] MEDS: AMINO ACIDS/PROTEIN HYDROLYS 30 ML LIQUID.PKT GT SCH (17:46)
[2022-08-15] MEDS: amLODIPine BESYLATE 10 MG TABLET (FP) GT SCH (21:28)
[2022-08-15] MEDS ORDERED: DOXAZOSIN MESYLATE 1 MG TABLET GT SCH (22:00)
[2022-08-16] MEDS: INSULIN SLIDING SCALE (NOVOLOG) 1 VIAL SQ SCH ×4 (02:39→18:51)
[2022-08-16] MEDS: AMINO ACIDS/PROTEIN HYDROLYS 30 ML LIQUID.PKT GT SCH ×3 (08:02→18:55)
[2022-08-16 08:31] LABS: HEMATOCRIT 25.6 % (35.4-49); HEMOGLOBIN 8.8 GM/dL (11.7-16.9); MCH 28.7 pg (25.7-33.7); MCHC 34.4 g/dl (32.0-35.9); MEAN CELL VOLUME 83.6 fl (80-96); MEAN PLT VOLUME 7.4 fl (7.5-11.1); PLATELET COUNT 840 10^3/uL (134-434); RBC 3.06 M/mm3 (4.00-5.60); WHITE BLOOD COUNT 7.5 K/mm3 (4.0-10.0)
[2022-08-16 08:42] LABS: POTASSIUM 4.2 mmol/L (3.5-5.1)
[2022-08-16 08:54] LABS: BLOOD UREA NITROGEN 18.5 mg/dL (7-18); CALCIUM 8.2 mg/dL (8.5-10.1)
[2022-08-16 08:56] LABS: ALBUMIN 2.2 g/dl (3.4-5.0)
[2022-08-16 08:59] LABS: CREATININE 1.1 mg/dL (0.55-1.3); PHOSPHOROUS 3.6 mg/dL (2.5-4.9)
[2022-08-16 09:00] LABS: BILIRUBIN,TOTAL 0.8 mg/dL (0.2-1); TOT PROT 5.3 g/dl (6.4-8.2)
[2022-08-16] MEDS: POLYETHYLENE GLYCOL (HEALTHYLAX) 3350 17 GM PACKET GT SCH (09:30)
[2022-08-16] MEDS: VITAMIN B COMP W-C 1 EA TABLET (NEPHRO-VITE) GT SCH (09:30)
[2022-08-16] MEDS: risperiDONE 0.5 MG TABLET GT SCH ×2 (09:30→21:42)
[2022-08-16] MEDS: FINASTERIDE 5 MG TABLET (FP) GT SCH (09:30)
[2022-08-16] MEDS: APIXABAN 5 MG TABLET GT SCH ×2 (09:30→21:42)
[2022-08-16] MEDS: METOPROLOL TARTRATE 25 MG TABLET (FP) GT SCH ×2 (09:30→21:44)
[2022-08-16] MEDS: LISINOPRIL 5 MG TABLET GT SCH (09:30)
[2022-08-16] MEDS: ZINC OXIDE 20% TOPICAL OINTMENT 30 GM TUBE TP SCH ×2 (09:31→21:44)
[2022-08-16] MEDS: FAMOTIDINE 20 MG/2.5 ML ORAL LIQUID GT SCH (09:31)
[2022-08-16] MEDS: SENNOSIDES 8.8 MG/5 ML SYRUP GT SCH (09:31)
[2022-08-16] MEDS ORDERED: INSULIN (NOVOLOG) ASPART 100 UNITS/ML 10ML VIAL ONE ×2 (12:58→18:50)
[2022-08-16] MEDS: amLODIPine BESYLATE 10 MG TABLET (FP) GT SCH (21:43)
[2022-08-17] MEDS: INSULIN SLIDING SCALE (NOVOLOG) 1 VIAL SQ SCH ×4 (02:53→17:31)
[2022-08-17] MEDS ORDERED: LORazepam 2 MG/ML SDV VIAL IVPUSH ONE (09:55)
[2022-08-17] MEDS: POLYETHYLENE GLYCOL (HEALTHYLAX) 3350 17 GM PACKET GT SCH (11:22)
[2022-08-17] MEDS: AMINO ACIDS/PROTEIN HYDROLYS 30 ML LIQUID.PKT GT SCH ×3 (11:22→17:31)
[2022-08-17] MEDS: FINASTERIDE 5 MG TABLET (FP) GT SCH (11:22)
[2022-08-17] MEDS: FAMOTIDINE 20 MG/2.5 ML ORAL LIQUID GT SCH (11:22)
[2022-08-17] MEDS: METOPROLOL TARTRATE 25 MG TABLET (FP) GT SCH ×2 (11:22→22:08)
[2022-08-17] MEDS: APIXABAN 5 MG TABLET GT SCH ×2 (11:22→22:07)
[2022-08-17] MEDS: risperiDONE 0.5 MG TABLET GT SCH ×2 (11:23→22:07)
[2022-08-17] MEDS: LISINOPRIL 5 MG TABLET GT SCH (11:23)
[2022-08-17] MEDS: ZINC OXIDE 20% TOPICAL OINTMENT 30 GM TUBE TP SCH ×2 (11:23→22:08)
[2022-08-17] MEDS: SENNOSIDES 8.8 MG/5 ML SYRUP GT SCH (11:23)
[2022-08-17 11:27] LABS: BASO % 1.1 % (0-2.0); EOS % 2.7 % (0-4.5); HEMATOCRIT 27.8 % (35.4-49); HEMOGLOBIN 9.4 GM/dL (11.7-16.9); LYMPH % 19.8 % (8-40); MCHC 33.6 g/dl (32.0-35.9); MEAN CELL VOLUME 83.3 fl (80-96); MEAN PLT VOLUME 7.4 fl (7.5-11.1); MONO % 10.1 % (3.8-10.2); NEUT % 66.3 % (42.8-82.8); PLATELET COUNT 836 10^3/uL (134-434); RBC 3.34 M/mm3 (4.00-5.60); RDW 16.9 % (11.9-15.9); WHITE BLOOD COUNT 7.2 K/mm3 (4.0-10.0)
[2022-08-17] MEDS: VITAMIN B COMP W-C 1 EA TABLET (NEPHRO-VITE) GT SCH (11:29)
[2022-08-17 11:46] LABS: POTASSIUM 3.7 mmol/L (3.5-5.1)
[2022-08-17 11:47] LABS: CALCIUM 8.5 mg/dL (8.5-10.1)
[2022-08-17 11:48] LABS: BLOOD UREA NITROGEN 24.9 mg/dL (7-18)
[2022-08-17 11:51] LABS: CREATININE 1.2 mg/dL (0.55-1.3)
[2022-08-17] MEDS: amLODIPine BESYLATE 10 MG TABLET (FP) GT SCH (22:07)
[2022-08-18] MEDS ORDERED: INSULIN (NOVOLOG) ASPART 100 UNITS/ML 10ML VIAL ONE ×3 (06:23→22:40)
[2022-08-18] MEDS: INSULIN SLIDING SCALE (NOVOLOG) 1 VIAL SQ SCH ×3 (06:32→16:52)
[2022-08-18 07:42] LABS: BASO % 0.7 % (0-2.0); EOS % 2.7 % (0-4.5); HEMATOCRIT 26.1 % (35.4-49); HEMOGLOBIN 8.8 GM/dL (11.7-16.9); LYMPH % 21.7 % (8-40); MCH 28.1 pg (25.7-33.7); MCHC 33.8 g/dl (32.0-35.9); MEAN CELL VOLUME 82.9 fl (80-96); MEAN PLT VOLUME 7.4 fl (7.5-11.1); NEUT % 65.9 % (42.8-82.8); PLATELET COUNT 815 10^3/uL (134-434); RBC 3.14 M/mm3 (4.00-5.60); RDW 17.3 % (11.9-15.9); WHITE BLOOD COUNT 7.4 K/mm3 (4.0-10.0)
[2022-08-18 07:59] LABS: POTASSIUM 4.1 mmol/L (3.5-5.1)
[2022-08-18 08:00] LABS: CALCIUM 8.4 mg/dL (8.5-10.1)
[2022-08-18 08:02] LABS: BLOOD UREA NITROGEN 31.8 mg/dL (7-18)
[2022-08-18 08:04] LABS: CREATININE 1.2 mg/dL (0.55-1.3)
[2022-08-18] MEDS: VITAMIN B COMP W-C 1 EA TABLET (NEPHRO-VITE) GT SCH (09:21)
[2022-08-18] MEDS: POLYETHYLENE GLYCOL (HEALTHYLAX) 3350 17 GM PACKET GT SCH (09:21)
[2022-08-18] MEDS: AMINO ACIDS/PROTEIN HYDROLYS 30 ML LIQUID.PKT GT SCH ×3 (09:21→18:39)
[2022-08-18] MEDS: METOPROLOL TARTRATE 25 MG TABLET (FP) GT SCH ×2 (09:21→21:12)
[2022-08-18] MEDS: APIXABAN 5 MG TABLET GT SCH ×2 (09:22→21:11)
[2022-08-18] MEDS: FINASTERIDE 5 MG TABLET (FP) GT SCH (09:22)
[2022-08-18] MEDS: FAMOTIDINE 20 MG/2.5 ML ORAL LIQUID GT SCH (09:22)
[2022-08-18] MEDS: SENNOSIDES 8.8 MG/5 ML SYRUP GT SCH (09:22)
[2022-08-18] MEDS: risperiDONE 0.5 MG TABLET GT SCH ×2 (09:22→21:13)
[2022-08-18] MEDS: ZINC OXIDE 20% TOPICAL OINTMENT 30 GM TUBE TP SCH ×2 (09:23→21:13)
[2022-08-18] MEDS: LISINOPRIL 5 MG TABLET GT SCH (09:29)
[2022-08-18] MEDS ORDERED: ALPRAZolam 0.25 MG TABLET PO PRN (09:40)
[2022-08-18] MEDS ORDERED: SENNOSIDES 8.8 MG/5 ML SYRUP GT PRN (11:35)
[2022-08-18] MEDS ORDERED: POLYETHYLENE GLYCOL (HEALTHYLAX) 3350 17 GM PACKET GT PRN (11:35)
[2022-08-18] MEDS: ALPRAZolam 0.25 MG TABLET GT PRN (14:18)
[2022-08-18] MEDS ORDERED: LORazepam 2 MG/ML SDV VIAL IVPUSH PRN (16:33)
[2022-08-18] MEDS: amLODIPine BESYLATE 10 MG TABLET (FP) GT SCH (21:11)
[2022-08-18] MEDS: DOXAZOSIN MESYLATE 1 MG TABLET GT SCH (21:15)
[2022-08-19] MEDS ORDERED: INSULIN (NOVOLOG) ASPART 100 UNITS/ML 10ML VIAL ONE ×5 (06:39→16:54)
[2022-08-19] MEDS: INSULIN SLIDING SCALE (NOVOLOG) 1 VIAL SQ SCH ×3 (06:42→16:43)
[2022-08-19 07:56] LABS: HEMOGLOBIN 8.8 GM/dL (11.7-16.9); MCH 29.1 pg (25.7-33.7); MCHC 35.1 g/dl (32.0-35.9); MEAN CELL VOLUME 82.9 fl (80-96); MEAN PLT VOLUME 7.5 fl (7.5-11.1); PLATELET COUNT 778 10^3/uL (134-434); RBC 3.02 M/mm3 (4.00-5.60); RDW 17.3 % (11.9-15.9); WHITE BLOOD COUNT 9.2 K/mm3 (4.0-10.0)
[2022-08-19 08:11] LABS: POTASSIUM 3.9 mmol/L (3.5-5.1)
[2022-08-19 08:20] LABS: ALBUMIN 2.2 g/dl (3.4-5.0); CALCIUM 8.4 mg/dL (8.5-10.1); MAGNESIUM 2.1 mg/dL (1.8-2.4)
[2022-08-19 08:23] LABS: CREATININE 1.2 mg/dL (0.55-1.3); PHOSPHOROUS 3.8 mg/dL (2.5-4.9)
[2022-08-19 08:24] LABS: TOT PROT 5.2 g/dl (6.4-8.2)
[2022-08-19 08:25] LABS: BILIRUBIN,TOTAL 0.4 mg/dL (0.2-1)
[2022-08-19] MEDS: AMINO ACIDS/PROTEIN HYDROLYS 30 ML LIQUID.PKT GT SCH ×3 (10:15→16:44)
[2022-08-19] MEDS: FINASTERIDE 5 MG TABLET (FP) GT SCH ×3 (10:17→10:59)
[2022-08-19] MEDS: LISINOPRIL 5 MG TABLET GT SCH (10:17)
[2022-08-19] MEDS: METOPROLOL TARTRATE 25 MG TABLET (FP) GT SCH ×3 (10:17→22:34)
[2022-08-19] MEDS: VITAMIN B COMP W-C 1 EA TABLET (NEPHRO-VITE) GT SCH ×2 (10:17→10:34)
[2022-08-19] MEDS: risperiDONE 0.5 MG TABLET GT SCH ×3 (10:18→22:34)
[2022-08-19] MEDS: FAMOTIDINE 20 MG/2.5 ML ORAL LIQUID GT SCH (10:18)
[2022-08-19] MEDS: APIXABAN 5 MG TABLET GT SCH ×3 (10:18→22:34)
[2022-08-19] MEDS: ZINC OXIDE 20% TOPICAL OINTMENT 30 GM TUBE TP SCH ×2 (10:19→22:36)
[2022-08-19] MEDS: DOXAZOSIN MESYLATE 1 MG TABLET GT SCH (22:54)
[2022-08-20] MEDS ORDERED: INSULIN (NOVOLOG) ASPART 100 UNITS/ML 10ML VIAL ONE ×5 (06:18→17:06)
[2022-08-20] MEDS: INSULIN SLIDING SCALE (NOVOLOG) 1 VIAL SQ SCH ×3 (06:19→16:58)
[2022-08-20] MEDS: AMINO ACIDS/PROTEIN HYDROLYS 30 ML LIQUID.PKT GT SCH ×3 (07:44→16:58)
[2022-08-20 08:04] LABS: HEMATOCRIT 27.2 % (35.4-49); HEMOGLOBIN 9.2 GM/dL (11.7-16.9); MCH 28.1 pg (25.7-33.7); MCHC 33.8 g/dl (32.0-35.9); MEAN CELL VOLUME 83.2 fl (80-96); MEAN PLT VOLUME 7.1 fl (7.5-11.1); PLATELET COUNT 781 10^3/uL (134-434); RBC 3.27 M/mm3 (4.00-5.60); RDW 16.9 % (11.9-15.9); WHITE BLOOD COUNT 10.6 K/mm3 (4.0-10.0)
[2022-08-20 08:17] LABS: POTASSIUM 3.8 mmol/L (3.5-5.1)
[2022-08-20 08:19] LABS: ALBUMIN 2.3 g/dl (3.4-5.0); CALCIUM 8.6 mg/dL (8.5-10.1)
[2022-08-20 08:20] LABS: BLOOD UREA NITROGEN 35.1 mg/dL (7-18)
[2022-08-20 08:22] LABS: PHOSPHOROUS 3.8 mg/dL (2.5-4.9)
[2022-08-20 08:23] LABS: CREATININE 1.1 mg/dL (0.55-1.3)
[2022-08-20 08:24] LABS: BILIRUBIN,TOTAL 0.4 mg/dL (0.2-1); TOT PROT 5.4 g/dl (6.4-8.2)
[2022-08-20] MEDS: METOPROLOL TARTRATE 25 MG TABLET (FP) GT SCH ×2 (09:52→21:19)
[2022-08-20] MEDS ORDERED: POTASSIUM CHLORIDE ORAL LIQUID 20 MEQ/15 ML GT ONE (10:00)
[2022-08-20] MEDS: VITAMIN B COMP W-C 1 EA TABLET (NEPHRO-VITE) GT SCH (10:31)
[2022-08-20] MEDS: FINASTERIDE 5 MG TABLET (FP) GT SCH (10:31)
[2022-08-20] MEDS: LISINOPRIL 5 MG TABLET GT SCH (10:31)
[2022-08-20] MEDS: FAMOTIDINE 20 MG/2.5 ML ORAL LIQUID GT SCH (10:32)
[2022-08-20] MEDS: risperiDONE 0.5 MG TABLET GT SCH ×2 (10:32→21:19)
[2022-08-20] MEDS: APIXABAN 5 MG TABLET GT SCH ×2 (10:32→21:19)
[2022-08-20] MEDS: ZINC OXIDE 20% TOPICAL OINTMENT 30 GM TUBE TP SCH ×2 (10:34→22:02)
[2022-08-20] MEDS: ALPRAZolam 0.25 MG TABLET GT PRN (12:36)
[2022-08-20] MEDS ORDERED: HALOPERIDOL LACTATE 5 MG/ML IM ONE (20:52)
[2022-08-20] MEDS: DOXAZOSIN MESYLATE 1 MG TABLET GT SCH (21:19)
[2022-08-20] MEDS: VANCOMYCIN ORAL SOLUTION 125 MG/2.5 ML GT SCH (22:24)
[2022-08-21] MEDS: VANCOMYCIN ORAL SOLUTION 125 MG/2.5 ML GT SCH ×3 (05:14→17:18)
[2022-08-21] MEDS ORDERED: INSULIN (NOVOLOG) ASPART 100 UNITS/ML 10ML VIAL ONE (06:07)
[2022-08-21] MEDS: INSULIN SLIDING SCALE (NOVOLOG) 1 VIAL SQ SCH ×3 (06:08→16:38)
[2022-08-21 07:51] LABS: HEMOGLOBIN 8.8 GM/dL (11.7-16.9); MCHC 33.9 g/dl (32.0-35.9); MEAN CELL VOLUME 82.7 fl (80-96); MEAN PLT VOLUME 7.4 fl (7.5-11.1); PLATELET COUNT 689 10^3/uL (134-434); RBC 3.14 M/mm3 (4.00-5.60); RDW 17.4 % (11.9-15.9); WHITE BLOOD COUNT 10.4 K/mm3 (4.0-10.0)
[2022-08-21 07:59] LABS: POTASSIUM 3.8 mmol/L (3.5-5.1)
[2022-08-21 08:01] LABS: ALBUMIN 2.1 g/dl (3.4-5.0); CALCIUM 8.4 mg/dL (8.5-10.1); MAGNESIUM 1.8 mg/dL (1.8-2.4)
[2022-08-21 08:02] LABS: BLOOD UREA NITROGEN 38.6 mg/dL (7-18)
[2022-08-21 08:05] LABS: CREATININE 1.1 mg/dL (0.55-1.3)
[2022-08-21 08:06] LABS: BILIRUBIN,TOTAL 0.3 mg/dL (0.2-1); TOT PROT 5.1 g/dl (6.4-8.2)
[2022-08-21] MEDS: AMINO ACIDS/PROTEIN HYDROLYS 30 ML LIQUID.PKT GT SCH ×3 (09:47→16:44)
[2022-08-21] MEDS: risperiDONE 0.5 MG TABLET GT SCH (09:48)
[2022-08-21] MEDS: APIXABAN 5 MG TABLET GT SCH ×2 (09:48→22:50)
[2022-08-21] MEDS: FAMOTIDINE 20 MG/2.5 ML ORAL LIQUID GT SCH (09:48)
[2022-08-21] MEDS: ZINC OXIDE 20% TOPICAL OINTMENT 30 GM TUBE TP SCH ×2 (09:48→22:50)
[2022-08-21] MEDS: VITAMIN B COMP W-C 1 EA TABLET (NEPHRO-VITE) GT SCH (09:48)
[2022-08-21] MEDS: FINASTERIDE 5 MG TABLET (FP) GT SCH (09:48)
[2022-08-21] MEDS: LISINOPRIL 5 MG TABLET GT SCH (09:48)
[2022-08-21] MEDS ORDERED: POTASSIUM CHLORIDE ORAL LIQUID 20 MEQ/15 ML GT ONE (13:33)
[2022-08-21] MEDS ORDERED: MAGNESIUM SULF 50% (8.12 MEQ/2 ML-1 GM VIAL) IVPB ONE (13:33)
[2022-08-21] MEDS ORDERED: MAGNESIUM OXIDE 400 MG TABLET (FP) GT ONE (15:15)
[2022-08-21] MEDS: ALPRAZolam 0.25 MG TABLET GT PRN (15:32)
[2022-08-21] MEDS ORDERED: VANCOMYCIN ORAL SOLUTION 125 MG/2.5 ML PO SCH (22:00)
[2022-08-21] MEDS: DOXAZOSIN MESYLATE 1 MG TABLET GT SCH (22:49)
[2022-08-21] MEDS: risperiDONE 1 MG TABLET GT SCH (22:52)
[2022-08-22] MEDS: VANCOMYCIN ORAL SOLUTION 125 MG/2.5 ML GT SCH ×4 (00:13→17:17)
[2022-08-22 06:38] LABS: HEMATOCRIT 25.4 % (35.4-49); HEMOGLOBIN 8.9 GM/dL (11.7-16.9); MCHC 34.9 g/dl (32.0-35.9); MEAN CELL VOLUME 83.1 fl (80-96); MEAN PLT VOLUME 7.3 fl (7.5-11.1); PLATELET COUNT 613 10^3/uL (134-434); RBC 3.06 M/mm3 (4.00-5.60); RDW 16.9 % (11.9-15.9); WHITE BLOOD COUNT 8.2 K/mm3 (4.0-10.0)
[2022-08-22] MEDS: INSULIN SLIDING SCALE (NOVOLOG) 1 VIAL SQ SCH ×3 (06:44→16:28)
[2022-08-22 07:38] LABS: ALBUMIN 2.1 g/dl (3.4-5.0); BILIRUBIN,TOTAL 0.2 mg/dL (0.2-1); CALCIUM 8.7 mg/dL (8.5-10.1); CREATININE 1.1 mg/dL (0.55-1.3); MAGNESIUM 1.9 mg/dL (1.8-2.4); PHOSPHOROUS 3.1 mg/dL (2.5-4.9); POTASSIUM 3.9 mmol/L (3.5-5.1); TOT PROT 5.1 g/dl (6.4-8.2)
[2022-08-22] MEDS ORDERED: POTASSIUM CHLORIDE ORAL LIQUID 20 MEQ/15 ML GT ONE (08:24)
[2022-08-22] MEDS ORDERED: MAGNESIUM SULF 50% (8.12 MEQ/2 ML-1 GM VIAL) IVPB ONE (08:25)
[2022-08-22] MEDS ORDERED: MAGNESIUM OXIDE 400 MG TABLET (FP) GT ONE (09:14)
[2022-08-22] MEDS: LISINOPRIL 5 MG TABLET GT SCH (10:08)
[2022-08-22] MEDS: APIXABAN 5 MG TABLET GT SCH ×2 (10:08→22:01)
[2022-08-22] MEDS: FINASTERIDE 5 MG TABLET (FP) GT SCH (10:08)
[2022-08-22] MEDS: VITAMIN B COMP W-C 1 EA TABLET (NEPHRO-VITE) GT SCH (10:08)
[2022-08-22] MEDS: AMINO ACIDS/PROTEIN HYDROLYS 30 ML LIQUID.PKT GT SCH ×3 (10:09→17:17)
[2022-08-22] MEDS: FAMOTIDINE 20 MG/2.5 ML ORAL LIQUID GT SCH (10:09)
[2022-08-22] MEDS: ZINC OXIDE 20% TOPICAL OINTMENT 30 GM TUBE TP SCH ×2 (10:10→22:01)
[2022-08-22] MEDS: risperiDONE 1 MG TABLET GT SCH ×2 (10:10→22:01)
[2022-08-22] MEDS: ALPRAZolam 0.25 MG TABLET GT PRN (14:27)
[2022-08-22] MEDS: DOXAZOSIN MESYLATE 1 MG TABLET GT SCH (22:01)
[2022-08-23] MEDS: VANCOMYCIN ORAL SOLUTION 125 MG/2.5 ML GT SCH ×4 (00:05→17:14)
[2022-08-23] MEDS: ALPRAZolam 1 MG TABLET GT PRN ×2 (00:05→21:18)
[2022-08-23] MEDS: INSULIN SLIDING SCALE (NOVOLOG) 1 VIAL SQ SCH ×3 (06:26→17:14)
[2022-08-23 08:18] LABS: HEMATOCRIT 25.3 % (35.4-49); HEMOGLOBIN 8.7 GM/dL (11.7-16.9); MCH 28.5 pg (25.7-33.7); MCHC 34.3 g/dl (32.0-35.9); MEAN PLT VOLUME 7.6 fl (7.5-11.1); PLATELET COUNT 647 10^3/uL (134-434); RBC 3.04 M/mm3 (4.00-5.60)
[2022-08-23 08:45] LABS: POTASSIUM 3.8 mmol/L (3.5-5.1)
[2022-08-23 08:52] LABS: ALBUMIN 2.1 g/dl (3.4-5.0); BLOOD UREA NITROGEN 30.3 mg/dL (7-18)
[2022-08-23 08:54] LABS: MAGNESIUM 1.8 mg/dL (1.8-2.4)
[2022-08-23 08:56] LABS: CREATININE 0.9 mg/dL (0.55-1.3)
[2022-08-23 08:57] LABS: BILIRUBIN,TOTAL 0.4 mg/dL (0.2-1); TOT PROT 5.3 g/dl (6.4-8.2)
[2022-08-23] MEDS: FINASTERIDE 5 MG TABLET (FP) GT SCH (09:31)
[2022-08-23] MEDS: APIXABAN 5 MG TABLET GT SCH ×2 (09:31→21:18)
[2022-08-23] MEDS: VITAMIN B COMP W-C 1 EA TABLET (NEPHRO-VITE) GT SCH (09:31)
[2022-08-23] MEDS: AMINO ACIDS/PROTEIN HYDROLYS 30 ML LIQUID.PKT GT SCH ×3 (09:31→16:57)
[2022-08-23] MEDS: LISINOPRIL 5 MG TABLET GT SCH (09:31)
[2022-08-23] MEDS: LACTOBACILLUS ACIDOPHILUS 1 TABLET PO SCH (09:31)
[2022-08-23] MEDS: FAMOTIDINE 20 MG/2.5 ML ORAL LIQUID GT SCH (09:35)
[2022-08-23] MEDS: risperiDONE 1 MG TABLET GT SCH ×2 (09:37→21:18)
[2022-08-23] MEDS: ZINC OXIDE 20% TOPICAL OINTMENT 30 GM TUBE TP SCH ×2 (09:38→21:18)
[2022-08-23] MEDS: CHLORHEXIDINE GLUCONATE 0.12% 15ML CUP MM SCH ×2 (15:32→15:33)
[2022-08-23] MEDS ORDERED: POTASSIUM CHLORIDE ORAL LIQUID 20 MEQ/15 ML PO ONE (15:39)
[2022-08-23] MEDS ORDERED: MAGNESIUM OXIDE 400 MG TABLET (FP) PO ONE (15:40)
[2022-08-23] MEDS: DOXAZOSIN MESYLATE 1 MG TABLET GT SCH (21:18)
[2022-08-24] MEDS: VANCOMYCIN ORAL SOLUTION 125 MG/2.5 ML GT SCH ×5 (00:50→23:28)
[2022-08-24] MEDS: INSULIN SLIDING SCALE (NOVOLOG) 1 VIAL SQ SCH ×3 (06:18→16:54)
[2022-08-24 07:28] LABS: HEMATOCRIT 27.4 % (35.4-49); MCH 27.6 pg (25.7-33.7); MCHC 32.9 g/dl (32.0-35.9); MEAN CELL VOLUME 83.9 fl (80-96); MEAN PLT VOLUME 7.5 fl (7.5-11.1); PLATELET COUNT 622 10^3/uL (134-434); RBC 3.27 M/mm3 (4.00-5.60); RDW 17.2 % (11.9-15.9); WHITE BLOOD COUNT 7.2 K/mm3 (4.0-10.0)
[2022-08-24 07:50] LABS: POTASSIUM 4.2 mmol/L (3.5-5.1)
[2022-08-24 07:55] LABS: ALBUMIN 2.3 g/dl (3.4-5.0); BLOOD UREA NITROGEN 36.5 mg/dL (7-18); CALCIUM 8.7 mg/dL (8.5-10.1); MAGNESIUM 1.9 mg/dL (1.8-2.4)
[2022-08-24 07:58] LABS: CREATININE 0.9 mg/dL (0.55-1.3); PHOSPHOROUS 3.6 mg/dL (2.5-4.9)
[2022-08-24 08:00] LABS: BILIRUBIN,TOTAL 0.2 mg/dL (0.2-1); TOT PROT 5.4 g/dl (6.4-8.2)
[2022-08-24] MEDS: AMINO ACIDS/PROTEIN HYDROLYS 30 ML LIQUID.PKT GT SCH ×3 (08:15→17:51)
[2022-08-24] MEDS: FAMOTIDINE 20 MG/2.5 ML ORAL LIQUID GT SCH (10:16)
[2022-08-24] MEDS: FINASTERIDE 5 MG TABLET (FP) GT SCH (10:16)
[2022-08-24] MEDS: VITAMIN B COMP W-C 1 EA TABLET (NEPHRO-VITE) GT SCH (10:16)
[2022-08-24] MEDS: APIXABAN 5 MG TABLET GT SCH ×2 (10:16→21:32)
[2022-08-24] MEDS: LISINOPRIL 5 MG TABLET GT SCH (10:16)
[2022-08-24] MEDS: LACTOBACILLUS ACIDOPHILUS 1 TABLET PO SCH (10:16)
[2022-08-24] MEDS: risperiDONE 1 MG TABLET GT SCH ×2 (10:17→21:32)
[2022-08-24] MEDS: ZINC OXIDE 20% TOPICAL OINTMENT 30 GM TUBE TP SCH ×2 (10:18→22:56)
[2022-08-24] MEDS: DOXAZOSIN MESYLATE 1 MG TABLET GT SCH (21:31)
[2022-08-24] MEDS ORDERED: ALPRAZolam 0.25 MG TABLET GT PRN (23:21)
[2022-08-25] MEDS: VANCOMYCIN ORAL SOLUTION 125 MG/2.5 ML GT SCH ×3 (06:09→17:11)
[2022-08-25] MEDS: INSULIN SLIDING SCALE (NOVOLOG) 1 VIAL SQ SCH ×3 (06:17→16:50)
[2022-08-25] MEDS: APIXABAN 5 MG TABLET GT SCH (09:00)
[2022-08-25] MEDS: AMINO ACIDS/PROTEIN HYDROLYS 30 ML LIQUID.PKT GT SCH ×3 (09:00→16:50)
[2022-08-25] MEDS: LACTOBACILLUS ACIDOPHILUS 1 TABLET PO SCH (09:00)
[2022-08-25] MEDS: LISINOPRIL 5 MG TABLET GT SCH (09:01)
[2022-08-25] MEDS: FINASTERIDE 5 MG TABLET (FP) GT SCH (09:01)
[2022-08-25] MEDS: VITAMIN B COMP W-C 1 EA TABLET (NEPHRO-VITE) GT SCH (09:01)
[2022-08-25] MEDS: FAMOTIDINE 20 MG/2.5 ML ORAL LIQUID GT SCH (09:01)
[2022-08-25] MEDS: risperiDONE 1 MG TABLET GT SCH (09:03)
[2022-08-25] MEDS: ZINC OXIDE 20% TOPICAL OINTMENT 30 GM TUBE TP SCH (09:03)
[2022-08-25] MEDS ORDERED: LACTOBACILLUS ACIDOPHILUS 1 TABLET GT SCH (13:22)
[2022-08-25 17:12] VITALS: BP 145/66; PULSE 81; RESP 20; TEMP 97.5
[2022-08-26] MEDS ORDERED: LISINOPRIL 5 MG TABLET GT ONE (10:13)
== END 2022-08-25 17:34 | DRG 604 ==
LOC: JER 17:17 → JERBED 21:34 → J4W 08-15 02:46 → J4S 08-21 16:49
PROVIDERS: ADMIT Internal Medicine; ATTEND Internal Medicine
DX: S00.03XA Contusion of scalp, initial encounter (principal); E43 Unspecified severe protein-calorie malnutrition; A04.72 Enterocolitis due to Clostridium difficile, not specified as recurrent; N18.30 Chronic kidney disease, stage 3 unspecified; I44.1 Atrioventricular block, second degree; E11.9 Type 2 diabetes mellitus without complications; J44.9 Chronic obstructive pulmonary disease, unspecified; I12.9 Hypertensive chronic kidney disease with stage 1 through stage 4 chronic kidney disease, or unspecified chronic kidney disease; N40.0 Benign prostatic hyperplasia without lower urinary tract symptoms; R33.9 Retention of urine, unspecified; I48.91 Unspecified atrial fibrillation; D75.839 Thrombocytosis, unspecified; Z68.22 Body mass index [BMI] 22.0-22.9, adult; W19.XXXA Unspecified fall, initial encounter; Y93.9 Activity, unspecified; Y92.89 Other specified places as the place of occurrence of the external cause; Y99.9 Unspecified external cause status
CPT/HCPCS: 0241U-QW; 36415; 70450-TC; 71045-TC-FY; 72125-TC; 74230-TC-FY; 80048; 80053; 81003; 82962; 83735; 84100; 84484; 85025; 85027; 85610; 85730; 87077; 87086; 87324; 87449; 92611-GN; 93005; 93010; 97116-GP; 97162-GP; 99285-25